=== PATIENT | male | born 1985 | race Caucasian/White ===

== ENCOUNTER 2023-03-01 07:30 | Outpatient (REF) | payer BC, SELFPAY ==
[2023-03-01 12:07] LABS: Hematocrit 50.2 % (42.0-52.0); Hemoglobin 16.8 g/dl (14.0-18.0); Mean Corpuscular HGB Conc 33.5 g/dl (31.0-36.0); Mean Corpuscular Hemoglobin 29.8 pg (27.0-33.0); Mean Platelet Volume 10.1 fL (9.4-12.4); Platelet Count 275 X10*3/uL (160-400); Red Blood Count 5.64 X10*6/uL (4.60-5.80); White Blood Count 6.9 X10*3/uL (4.8-10.8)
[2023-03-01 13:47] LABS: Alanine Aminotransferase 93 U/L (0-40); Albumin Level 4.2 g/dL (3.5-5.0); Alkaline Phosphatase 92 U/L (39-117); Anion Gap 14 (12-20); Aspartate Amino Transferase 34 U/L (5-37); Bilirubin Total 1.2 mg/dL (0.0-1.0); Blood Urea Nitrogen 11 mg/dL (9-16); Calcium 9.4 mg/dL (8.4-10.2); Carbon Dioxide 28 mmol/L (22-29); Chloride 108 mmol/L (96-108); Cholesterol 192 mg/dL; Estimated Glomerular Filt Rate > 60; Glucose Fasting 102 mg/dL (60-99); HDL Cholesterol 44 mg/dL; LDL Cholesterol Calculated 118 mg/dl; Potassium 4.6 mmol/L (3.3-5.1); Sodium 145 mmol/L (135-145); Total Protein 6.7 g/dL (6.5-8.0); Triglycerides 153 mg/dL
[2023-03-01 14:06] LABS: TSH reflex Free T4 1.56 uIU/mL (0.32-4.0)
== END 2023-03-01 07:31 | disposition home or self-care (01) ==
LOC: HO.WFDLDS 07:30
PROVIDERS: Visit Provider Nurse Practitioner Family
DX: Z00.00 Encounter for general adult medical examination without abnormal findings (principal); F32.9 Major depressive disorder, single episode, unspecified; F41.9 Anxiety disorder, unspecified; F43.10 Post-traumatic stress disorder, unspecified; F84.0 Autistic disorder; I10 Essential (primary) hypertension
CPT/HCPCS: 36415; 80053; 80061; 84443; 85027

== ENCOUNTER 2023-03-17 07:24 | Outpatient (REF) | payer BC, SELFPAY ==
[2023-03-17 11:56] LABS: Alanine Aminotransferase 87 U/L (0-40); Glucose Fasting 102 mg/dL (60-99)
== END 2023-03-17 07:25 | disposition home or self-care (01) ==
LOC: HO.WFDLDS 07:24
PROVIDERS: Visit Provider Nurse Practitioner Family
DX: R73.01 Impaired fasting glucose (principal); R74.01 Elevation of levels of liver transaminase levels
CPT/HCPCS: 36415; 82947; 84460

== ENCOUNTER 2023-05-18 16:15 | Outpatient (AMB) | payer BC, SELFPAY ==
--- NOTE | 2023-05-18 16:19 | A.OFFPC_ITS ---
Vital Signs 05/18/23 16:22 Height 5 ft 9 in Weight 437 lb BMI 64.5 BP 128/72 Blood Pressure Location Lt brachial Position Sitting Respiration 13 Pulse 92 Pulse Source Pulse Oximeter Temp 96.7 F L Temp Source Temporal Artery Scan Pulse Oximetry (%) 98 Oxygen Delivery Method Room Air Intake Visit Reasons: follow up Intake Note: Patient states that he needs a new blood pressure cuff that is a XL to ensure it fits around patients arm. Senior Physical Therapist Required: No Accompanied by: Self / Same As Patient Allergies No Known Allergies Allergy (Verified 05/18/23 16:30) Medication List - Last Reconciled 05/18/23 by Rommel Flores CNP bupropion HCl (Wellbutrin SR) 150 mg PO QAM loratadine (Allergy Relief (loratadine)) 10 mg PO DAILY losartan 100 mg PO DAILY 30 days melatonin 10 mg PO BEDTIME PRN metoprolol tartrate 50 mg PO BID 30 days vilazodone (Viibryd) 40 mg PO DAILY Tobacco use date assessed: 02/28/23 Dental Screening Dental Screen Date: 05/18/23 Did you have a dental visit in the last 12 months?: No Did you have a dental problem in the last 6 months where you did not have access to dental care?: No HPI HPI Comments History of Present Illness Details 38-year-old male presents for hypertension follow-up He notes that he has been taking his medications as prescribed No acute symptoms today He reports controlled anxiety and depression symptoms. He is followed by a therapist and psychiatrist He is planning on establishing with a dentist and will then request for his PCP to refer him to weight management for a gastric prolonged procedure [facility] Medical History Depression Hay fever Hypertension Surgical History No pertinent past surgical history Family History Mother Diabetes Cardiovascular disease Cancer Father Hypertension Alcoholism Psychiatric problem Maternal Grandmother Diabetes Breast cancer Paternal Grandmother Lung cancer Maternal Grandfather Psychiatric problem Paternal Grandfather Alcoholism Social History Housing: Apartment Alcohol intake: never Patient Tobacco Use Status: Never used Tobacco e-Cigarette/Vaping Use: Never Used service: No Current occupational status: employed Current occupation: Patient works with the [place] Cognitive needs: No Hearing needs: No Vision needs: No Questionnaire Thrive Questionnaire Date Thrive assessed: 02/28/23 RAFIA-7 AMB Questionnaire RAFIA-7 Date RAFIA - 7 assessed: 02/28/23 Source: Developed by Drs. Eddie Alcantara, Hayde Meyer, Soto Mane and colleagues, with an educational rebecca from [employer]. Review of Systems Const Details: Const Denies chills, Denies fatigue, Denies fever(s), Denies headache(s) and Denies weakness ENT Denies change in vision, Denies dizziness, Denies headache(s), Denies hearing loss, Denies nasal congestion, Denies sinus pain, Denies sinus pressure and Denies sore throat Resp Denies cough, Denies dyspnea, Denies wheezing and Denies other (shortness of breath) Cardio Denies chest pain, Denies lightheadedness, Denies dyspnea and Denies other (palpitations) Neuro Denies dizziness, Denies headache(s), Denies numbness, Denies tingling and Denies weakness Psych Denies anxiety, Denies depression, Denies memory?loss Endo Denies fatigue Aller/Immun Denies wheezing Physical exam (Primary Care) Vital Signs: Last Vital Signs Temp 96.7 F L 05/18/23 16:22 Pulse 92 05/18/23 16:22 Resp 13 05/18/23 16:22 BP 128/72 05/18/23 16:22 Pulse Ox 98 05/18/23 16:22 Oxygen Delivery Method Room Air 05/18/23 16:22 BMI result Body Mass Index 64.5 Tobacco/Smoking Status: Tobacco use Status Tobacco use date assessed 02/28/23 04/29/23 15:32 Patient Tobacco Use Status Never used Tobacco 04/29/23 15:32 e-Cigarette/Vaping Use Never Used 04/29/23 15:32 Thrive Assessment: Date of Thrive Assessment Date Thrive assessed 02/28/23 04/29/23 15:32 Const Other: Const General: well developed; No acute distress Nutritional Appearance: well nourished Orientation/consciousness: patient oriented x3 HEENT Head: Yes normocephalic and Yes atraumatic Eyes General: appearance normal, both eyes and all related structures Pupils: Equal, round and reactive pupils present EOM: EOMs intact bilaterally Resp Effort & Inspection: normal respiratory effort Auscultation: clear to auscultation bilaterally Cardio Rate: regular rate Rhythm: regular rhythm Heart sounds: S1 normal heart sound present, S2 normal heart sound present, no g allops, no murmurs and no rubs Bruits: no abdominal aortic bruits and no carotid bruits Neuro General: patient oriented x3 and gait normal, no focal neuro deficit Cranial nerves: Yes Equal, round and reactive pupils present Psych Affect: normal affect Assessment and Plan Assessment & Plan (1) Hypertension: Code(s): I10 - Essential (primary) hypertension Plan: His blood pressure is controlled, 128/72, within goal of less than 140/90 Continue to take losartan and metoprolol as prescribed Low-sodium diet encouraged Routine exercise encouraged Will continue to monitor Follow-up in 1 month for complete physical exam Return sooner with symptoms or concerns Verbalized understanding and agreed with treatment plan. (2) Major depressive disorder: Code(s): F32.9 - Major depressive disorder, single episode, unspecified Plan: He reports controlled anxiety and depression symptoms Continue to follow up with therapist and psychiatrist as planned Return with worsening or new symptoms Verbalized understanding and agreed with treatment plan. (3) Anxiety: Code(s): F41.9 - Anxiety disorder, unspecified Plan: As above Medications: New miscellaneous medical supply 1 extra-large blood pressure cuff/monitor 1 ea 0RF Changed From metoprolol tartrate 50 mg PO BID 30 days 60 tabs 3RF To metoprolol tartrate 50 mg PO BID 90 days 180 tabs 1RF From losartan 100 mg PO DAILY 30 days 30 tabs 3RF To losartan 100 mg PO DAILY 90 days 90 tabs 1RF Coding Level of Care Code Est Pt Level 3 (24011) Diagnoses Hypertension I10 Major depressive disorder F32.9 Anxiety F41.9 Time Spent (min) 25
[2023-05-18 16:22] VITALS: BP 128/72; PULSE 92; RESP 13; TEMP 35.9; O2SAT 98; BMI 64.5
== END 2023-05-18 16:47 | disposition home or self-care (01) ==
PROVIDERS: PCP Nurse Practitioner Family; Visit Provider Nurse Practitioner Family
DX: I10 Essential (primary) hypertension (principal); F32.9 Major depressive disorder, single episode, unspecified; F41.9 Anxiety disorder, unspecified
CPT/HCPCS: 99213

== ENCOUNTER 2023-06-15 08:31 | Outpatient (AMB) | payer BC, SELFPAY ==
--- NOTE | 2023-06-15 08:39 | MHC.PC.OV ---
Vital Signs 06/15/23 08:40 06/15/23 09:04 Height 5 ft 9 in Weight 444 lb BMI 65.6 BP 172/110 H 134/90 H Blood Pressure Location Rt brachial Rt brachial Position Sitting Sitting Respiration 16 Pulse 89 Pulse Source Pulse Oximeter Temp 97.0 F Temp Source Temporal Artery Scan Pulse Oximetry (%) 93 Oxygen Delivery Method Room Air Intake Visit Reasons: 1 mos CPE Intake Note: Patient presents in the office today for a complete physical exam. Patient reports concerns for an oversized blood pressure cuff and how to obtain it through will pharmacy. Patient reports being under a considerable amount of stress due to family issues. 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 Accompanied by: Self / Same As Patient Allergies No Known Allergies Allergy (Verified 06/15/23 08:53) Medication List - Last Reconciled 06/15/23 by Rommel Flores CNP bupropion HCl (Wellbutrin SR) 150 mg PO QAM loratadine (Allergy Relief (loratadine)) 10 mg PO DAILY losartan 100 mg PO DAILY 90 days melatonin 10 mg PO BEDTIME PRN metoprolol tartrate 50 mg PO BID 90 days miscellaneous medical supply 1 extra-large blood pressure cuff/monitor vilazodone (Viibryd) 40 mg PO DAILY Tobacco use date assessed: 02/28/23 Dental Screening Dental Screen Date: 06/15/23 Did you have a dental visit in the last 12 months?: Yes Did you have a dental problem in the last 6 months where you did not have access to dental care?: No Was dental information given to patient?: Patient has dentist HPI HPI Comments History of Present Illness Details 38-year-old male presents for a complete physical exam He has past medical history significant for hypertension, autism, anxiety, and depression. He reports control anxiety and depression symptoms. He is followed by a therapist and psychiatrist. His psychiatrist manages his psychotropic medications. He notes that he took his medications this morning. He reports significant amount of stress due to family issues. His brother resides in a care home and does not want to be in the care home. 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 He states he never received his blood pressure cough/monitor because [facility] requires a diagnosis on the order. He states he will inquire whether his health plan covers Ozempic or Wegovy for weight management. [facility] Medical History Depression Hay fever Hypertension Surgical History No pertinent past surgical history Family History Mother Diabetes Cardiovascular disease Cancer Father Hypertension Alcoholism Psychiatric problem Maternal Grandmother Diabetes Breast cancer Paternal Grandmother Lung cancer Maternal Grandfather Psychiatric problem Paternal Grandfather Alcoholism Social History Housing: Apartment Alcohol intake: never Patient Tobacco Use Status: Never used Tobacco e-Cigarette/Vaping Use: Never Used service: No Current occupational status: employed Current occupation: Patient works with the [place] Cognitive needs: No Hearing needs: No Vision needs: No Questionnaire PHQ-9 Over the last 2 weeks, how often have you been bothered by any of the following problems? 1. Little interest or pleasure in doing things: not at all 2. Feeling down, depressed, or hopeless: several days 3. Trouble falling or staying asleep, or sleeping too much: not at all 4. Feeling tired or having little energy: several days 5. Poor appetite or overeating: several days 6. Feeling bad about yourself - or that you are a failure or have let yourself or your family down: more than half the days 7. Trouble concentrating on things, such as reading the newspaper or watching television: not at all 8. Moving or speaking so slowly that other people could have noticed. Or the opposite - being so fidgety or restless that you have been moving around a lot more than usual: not at all 9. Thoughts that you would be better off or of hurting yourself in some way: not at all Total score: 5 Depression Screening Interpretation: Positive Depression Screening Follow-up: Existing condition and In treatment 17964 - PHQ-9 Billing: Yes Source: Developed by Drs. Eddie Alcantara, Hayde Meyer, Soto Mane and colleagues, with an educational rebecca from [employer]. Thrive Questionnaire Date Thrive assessed: 02/28/23 RAFIA-7 AMB Questionnaire RAFIA-7 Date RAFIA - 7 assessed: 06/15/23 Feeling nervous, anxious, or on edge: 1 = Several days Not being able to stop or control worryin = More than half the days Worrying too much about different things: 1 = Several days Trouble relaxin = Several days Being so restless that it is hard to sit still: 0 = Not at all Becoming easily annoyed or irritable: 0 = Not at all Feeling afraid as if something awful might happen: 1 = Several days Total RAFIA-7 score (0-4 normal; 5-9 mild; 10-14 moderate; 15-21 severe): 6 Source: Developed by Drs. Eddie Alcantara, Hayde Meyer, Soto Mane and colleagues, with an educational rebecca from [employer]. RAFIA-7 Assessment Billing RAFIA-7 Assessment Tool: RAFIA-7 Assessment 09412 Review of Systems Const Details: Const Denies chills, Denies fatigue, Denies fever(s), Denies headache(s) and Denies weakness ENT Denies dizziness and Denies headache(s) Card Denies chest pain, Denies lightheadedness, Denies dyspnea and Denies other (Palpitations) Resp Denies cough, Denies dyspnea, Denies wheezing and Denies other ( shortness of breath) GI Denies abdominal pain, Denies melena, Denies hematochezia, Denies change in bowel habits, Denies dyspepsia and Denies nausea Denies hematuria and Denies dysuria Musc Denies abnormal gait, Denies myalgias, Denies arthralgias, Denies numbness and Denies tingling Skin/Breast Denies rash, Denies unusual bruising and Denies wounds Neuro Denies abnormal gait, Denies dizziness, Denies headache(s), Denies memory loss, Denies numbness, Denies Sensory deficit (Neuro), Denies tingling and Denies weakness Psych Denies anxiety, Denies depression, Denies memory loss Endo Denies cold intolerance, Denies fatigue, Denies heat intolerance, Denies polydipsia and Denies polyuria Aller/Immun Denies wheezing Physical exam (Primary Care) Vital Signs: Last Vital Signs Temp 97.0 F 06/15/23 08:40 Pulse 89 06/15/23 08:40 Resp 16 06/15/23 08:40 BP 172/110 H 06/15/23 08:40 Pulse Ox 93 06/15/23 08:40 Oxygen Delivery Method Room Air 06/15/23 08:40 BMI result Body Mass Index 65.6 Tobacco/Smoking Status: Tobacco use Status Tobacco use date assessed 02/28/23 06/15/23 08:39 Patient Tobacco Use Status Never used Tobacco 06/15/23 08:39 e-Cigarette/Vaping Use Never Used 06/15/23 08:39 Depression Screening Interpretation: Positive Depression Screening Follow-up: Existing condition and In treatment Thrive Assessment: Date of Thrive Assessment Date Thrive assessed 02/28/23 06/15/23 08:39 Const Other: General: no acute distress, well developed, alert and awake Nutritional Appearance: well nourished Orientation/consciousness: patient oriented x3 HENMT Head: Yes normocephalic and Yes atraumatic Ears: hearing grossly normal bilaterally and TM's normal bilaterally General nose exam: Normal external nose present and Normal nares present Mouth: Normal oral and palatal mucosa present and moist mucous membranes Teeth and gingiva: dentition normal Throat: Yes oropharynx normal Eyes Pupils: Equal, round and reactive pupils present and Pupil accommodation reflex normal EOM: EOMs intact bilaterally Neck Neck: Yes normal visual inspection, Yes no lymphadenopathy and Yes trachea midline Thyroid: Thyroid normal Carotids: no bruits Lymphatic: no lymphadenopathy noted Chest Chest palpation & inspection: normal inspection of the chest Resp Effort & Inspection: normal respiratory effort Auscultation: clear to auscultation bilaterally Cardio Rate: regular rate Rhythm: regular rhythm Heart sounds: S1 normal heart sound present, S2 normal heart sound present, no gallops, no murmurs and no rubs Bruits: no abdominal aortic bruits and no carotid bruits GI Palpation (GI): No Abdominal aortic bruit present, Soft to palpation, nontender, No hepatosplenomegaly present and No Rebound tenderness present Auscultation: normal bowel sounds General: Yes no CVA tenderness Back/Spine/Pelvis Back: no CVA tenderness Cervical Spine: cervical ROM normal and No Cervical spine tenderness Thoracic/Lumbar Spine: thoraco-lumbar ROM normal, No pain with thoraco-lumbar ROM, No thoracic spinal tenderness and No lumbar spinal tenderness Skin General: warm and dry. Normal skin color. Normal skin turgor Lesions: no lesions Rashes: no rashes Trauma: no lacerations or abrasions Wounds: no wounds Nails: normal Neuro General: patient oriented x3, gait normal and CN's II-XI intact bilaterally Cranial nerves: Yes Equal, round and reactive pupils present Cognition (Neuro): normal cognition Gait exam (Neuro): Normal gait present Motor exam (neuro): 5/5 motor strength present throughout Sensory Exam: No Sensory deficit (Neuro) Deep tendon reflexes (DTR's): Right patellar reflex intensity grade: 2+ and Left patellar reflex intensity grade: 2+ Extrem General: Yes normal to inspection, No edema and No calf tenderness Psych Appearance: grossly normal Affect: normal affect Attitude: cooperative Thought process: Normal thought process present Assessment and Plan Assessment & Plan (1) Normal physical examination, routine: Code(s): Z00.00 - Encounter for general adult medical examination without abnormal findings Plan: No significant physical restrictions or limitations noted He states he will inquire whether his health plan covers Ozempic or Wegovy for weight management and inform his PCP (2) Hypertension: Code(s): I10 - Essential (primary) hypertension Plan: Resting blood pressure is 134/90, slightly above goal of less than 140/90 Continue with current treatment regimen Low-sodium diet encouraged Blood pressure cough/monitor order modified with diagnosis Monitor blood pressure at least 2 to 3 times a week and report blood pressure readings consistently above 140/90 with and without symptoms Follow-up in 2 months or return sooner with concerns or symptoms Verbalized understanding and agreed with treatment plan. (3) Major depressive disorder: Code(s): F32.9 - Major depressive disorder, single episode, unspecified Plan: PHQ-9 and RAFIA-7 scores revealed mild depression and anxiety respectively Continue with current treatment regimen Continue to follow up with therapist and psychiatrist Routine exercise encouraged Return in 2 months or sooner with worsening or new symptoms Verbalized understanding and agreed with treatment plan. (4) Anxiety: Code(s): F41.9 - Anxiety disorder, unspecified Plan: As above Medications: Refilled miscellaneous medical supply 1 extra-large blood pressure cuff/monitor 1 ea 0RF I10 - Essential (primary) hypertension Coding Level of Care Code Est Pt Prev Care 18-39y([id number]) Diagnoses Normal physical examination, routine Z00.00 Hypertension I10 Major depressive disorder F32.9 Anxiety F41.9 Additional Codes RAFIA-7 Assessment Billing - RAFIA-7 Assessment Tool: RAFIA-7 Assessment 74295 ([id number])
[2023-06-15 08:40] VITALS: BP 172/110; PULSE 89; RESP 16; TEMP 36.1; O2SAT 93; BMI 65.6
[2023-06-15 09:04] VITALS: BP 134/90
== END 2023-06-15 09:17 | disposition home or self-care (01) ==
PROVIDERS: PCP Nurse Practitioner Family; Visit Provider Nurse Practitioner Family
DX: Z00.00 Encounter for general adult medical examination without abnormal findings (principal); I10 Essential (primary) hypertension; F32.9 Major depressive disorder, single episode, unspecified; F41.9 Anxiety disorder, unspecified
CPT/HCPCS: 99395

== ENCOUNTER 2023-10-21 11:49 | Outpatient (AMB) | payer BC, SELFPAY ==
[2023-10-21 11:57] VITALS: BP 142/90; PULSE 91; RESP 13; TEMP 36.3; O2SAT 97; BMI 66.3
--- NOTE | 2023-10-21 11:57 | MHC.PC.OV ---
Vital Signs 10/21/23 11:57 10/21/23 12:34 Height 5 ft 9 in Weight 449 lb BMI 66.3 BP 142/90 H 134/90 H Blood Pressure Location Rt brachial Lt brachial Position Sitting Sitting Respiration 13 Pulse 91 Pulse Source Pulse Oximeter Temp 97.4 F Temp Source Temporal Artery Scan Pulse Oximetry (%) 97 Oxygen Delivery Method Room Air Intake Visit Reasons: 2 mos HTN, anxiety, depression Intake Note: Patient states that since he was last here he has been having shortness of breathe and he is currently concerned that he may have lyme disease due to going to an outing with his friend and his friend coming out positive. Patient states he was unable to get BP cuff due to pharmacy having only electric and not manual. [place] Machine Operator Required: No Accompanied by: Self / Same As Patient Allergies blueberry Adverse Reaction (Intermediate, Verified 10/21/23 12:26) Stomach Upset Medication List - Last Reconciled 10/21/23 by Rommel Flores CNP bupropion HCl (Wellbutrin SR) 150 mg PO QAM loratadine (Allergy Relief (loratadine)) 10 mg PO DAILY losartan 100 mg PO DAILY 90 days melatonin 10 mg PO BEDTIME PRN metoprolol tartrate 50 mg PO BID 90 days metoprolol tartrate 25 mg PO BID miscellaneous medical supply 1 extra-large blood pressure cuff/monitor vilazodone (Viibryd) 40 mg PO DAILY Tobacco use date assessed: 02/28/23 Dental Screening Dental Screen Date: 10/21/23 Did you have a dental visit in the last 12 months?: No Did you have a dental problem in the last 6 months where you did not have access to dental care?: No Was dental information given to patient?: Yes HPI HPI Comments History of Present Illness Details 38-year-old male presents for hypertension, anxiety, and depression follow-up He admits to taking his medications with no adverse reactions He notes that he has been taking metoprolol 75 mg twice daily instead of prescribed 50 mg twice Daily. He states the pharmacy continues to fill both scripts for 25 mg twice daily and 50 mg twice Daily although the 25 mg twice daily order was discontinued several months ago He reports increased anxiety and depression symptoms related to family issues. He notes that his brother who is mentally ill, resides in a senior care [place], and lately has been challenging to care for He continues to see his psychiatrist every 3 months and therapist every 2-3 weeks He had a positive response to the PHQ-9 question regarding Thoughts that you would be better off or of hurting yourself in some way. He attributes his response to the challenges involves in caring for his brother. He notes that I just rather be . He denies SI/HI, and contracts for safety ? He reports shortness of breath with moderate to severe exertion since early September. He is concerned about Lyme disease. He notes that he was spending time with a friend who lives in the [facility] in early September. His friend tested positive for lyme disease a week or two later. He notes his shortness of breath started around the time he spent was with his friend. He denies finding or removing tick on his skin He notes history of sleep apnea. His slept with the CPAP for 6 month, was unable to tolerate the device, and has not been using it to sleep for the past 9 years [facility] Medical History Depression Hay fever Hypertension Surgical History No pertinent past surgical history Family History Mother Diabetes Cardiovascular disease Cancer Father Hypertension Alcoholism Psychiatric problem Maternal Grandmother Diabetes Breast cancer Paternal Grandmother Lung cancer Maternal Grandfather Psychiatric problem Paternal Grandfather Alcoholism Social History Housing: Apartment Alcohol intake: never Patient Tobacco Use Status: Never used Tobacco e-Cigarette/Vaping Use: Never Used service: No Current occupational status: employed Current occupation: Patient works with the [employer] Cognitive needs: No Hearing needs: No Vision needs: No Questionnaire PHQ-9 Over the last 2 weeks, how often have you been bothered by any of the following problems? 1. Little interest or pleasure in doing things: more than half the days 2. Feeling down, depressed, or hopeless: more than half the days 3. Trouble falling or staying asleep, or sleeping too much: more than half the days 4. Feeling tired or having little energy: more than half the days 5. Poor appetite or overeating: more than half the days 6. Feeling bad about yourself - or that you are a failure or have let yourself or your family down: several days 7. Trouble concentrating on things, such as reading the newspaper or watching television: several days 8. Moving or speaking so slowly that other people could have noticed. Or the opposite - being so fidgety or restless that you have been moving around a lot more than usual: not at all 9. Thoughts that you would be better off or of hurting yourself in some way: several days Total score: 13 Depression Screening Interpretation: Positive Depression Screening Follow-up: Existing condition and In treatment Depression Screening Done: Yes 94368 - PHQ-9 Billing: Yes Source: Developed by Drs. Eddie Alcantara, Soto Juarez and colleagues, with an educational rebecca from [employer]. Thrive Questionnaire Date Thrive assessed: 02/28/23 RAFIA-7 AMB Questionnaire RAFIA-7 Date RAFIA - 7 assessed: 10/21/23 Feeling nervous, anxious, or on edge: 1 = Several days Not being able to stop or control worryin = Several days Worrying too much about different things: 0 = Not at all Trouble relaxin = More than half the days Being so restless that it is hard to sit still: 0 = Not at all Becoming easily annoyed or irritable: 1 = Several days Feeling afraid as if something awful might happen: 2 = More than half the days Total RAFIA-7 score (0-4 normal; 5-9 mild; 10-14 moderate; 15-21 severe): 7 Source: Developed by Drs. Eddie Alcantara, Soto Juarez and colleagues, with an educational rebecca from [employer]. RAFIA-7 Assessment Billing RAFIA-7 Assessment Tool: RAFIA-7 Assessment 20161 Review of Systems Const Details: Const Denies chills, Denies fatigue, Denies fever(s), Denies headache(s) and Denies weakness ENT Denies dizziness and Denies headache(s) Card Denies chest pain, Denies lightheadedness, Denies dyspnea and Denies other (Palpitations) Resp Denies cough, Denies dyspnea, Denies wheezing and Denies other ( shortness of breath) GI Denies abdominal pain, Denies melena, Denies hematochezia, Denies change in bowel habits, Denies dyspepsia and Denies nausea Denies hematuria and Denies dysuria Musc Denies abnormal gait, Denies myalgias, Denies arthralgias, Denies numbness and Denies tingling Skin/Breast Denies rash, Denies unusual bruising and Denies wounds Neuro Denies abnormal gait, Denies dizziness, Denies headache(s), Denies memory loss, Denies numbness, Denies Sensory deficit (Neuro), Denies tingling and Denies weakness Psych Reports anxiety, Reports depression, Denies memory loss Endo Denies cold intolerance, Denies fatigue, Denies heat intolerance, Denies polydipsia and Denies polyuria Aller/Immun Denies wheezing Physical exam (Primary Care) Vital Signs: Last Vital Signs Temp 97.4 F 10/21/23 11:57 Pulse 91 10/21/23 11:57 Resp 13 10/21/23 11:57 BP 142/90 H 10/21/23 11:57 Pulse Ox 97 10/21/23 11:57 Oxygen Delivery Method Room Air 10/21/23 11:57 BMI result Body Mass Index 66.3 Tobacco/Smoking Status: Tobacco use Status Tobacco use date assessed 02/28/23 06/15/23 08:39 Patient Tobacco Use Status Never used Tobacco 06/15/23 08:39 e-Cigarette/Vaping Use Never Used 06/15/23 08:39 Depression Screening Interpretation: Positive Depression Screening Follow-up: Existing condition and In treatment Thrive Assessment: Date of Thrive Assessment Date Thrive assessed 02/28/23 06/15/23 08:39 Const Other: General: no acute distress and well developed Nutritional Appearance: well nourished Orientation/consciousness: patient oriented x3 HENMT Head: Yes normocephalic and Yes atraumatic Eyes General: appearance normal, both eyes and all related structures Pupils: Equal, round and reactive pupils present EOM: EOMs intact bilaterally Resp Effort & Inspection: normal respiratory effort Auscultation: clear to auscultation bilaterally Cardio Rate: regular rate Rhythm: regular rhythm Heart sounds: S1 normal heart sound present, S2 normal heart sound present, no gallops, no murmurs and no rubs GI Palpation (GI): No Abdominal aortic bruit present, Soft to palpation, nontender, No hepatosplenomegaly present and No Rebound tenderness present Auscultation: normal bowel sounds General: Yes no CVA tenderness Back/Spine/Pelvis Back: no CVA tenderness Cervical Spine: cervical ROM normal and No Cervical spine tenderness Thoracic/Lumbar Spine: thoraco-lumbar ROM normal, No pain with thoraco-lumbar ROM, No thoracic spinal tenderness and No lumbar spinal tenderness Extrem General: Yes normal to inspection, No edema and No calf tenderness Skin General: warm and dry. Normal skin color. Normal skin turgor Neuro General: patient oriented x3, gait normal and no focal neuro deficit Cranial nerves: Yes Equal, round and reactive pupils present Cognition (Neuro): normal cognition Gait exam (Neuro): Normal gait present Sensory Exam: No Sensory deficit (Neuro) Psych Appearance: grossly normal Affect: normal affect Attitude: cooperative Thought process: Normal thought process present Assessment and Plan Assessment & Plan (1) Hypertension: Code(s): I10 - Essential (primary) hypertension Plan: Resting blood pressure is 134/90, slightly above goal of less than 140/90 Metoprolol ordered adjusted from 50 mg twice daily to 75 mg twice daily take as prescribed Continue current treatment regimen Low-sodium diet encouraged Will continue to monitor He will follow-up in 1 week for shortness of breath Verbalized understanding and agreed with treatment plan (2) Major depressive disorder: Code(s): F32.9 - Major depressive disorder, single episode, unspecified Plan: Reports increased anxiety and depression symptoms related to caring for his brother who is mentally ill He had a positive response to the PHQ-9 questions regarding Thoughts that you would be better off or of hurting yourself in some way. He attributes his response to the challenges involves in caring for his brother. He notes that I just rather be . He denies SI/HI, and contracts for safety PHQ-9 and RAFIA-7 scores revealed moderate depression and mild anxiety respectively Continue current treatment regimen Continue follow-up with therapist and psychiatrist as planned Routine exercise and deep breathing/relaxation techniques encouraged Return with worsening or new symptoms Verbalized understanding and agreed with treatment plan (3) Anxiety: Code(s): F41.9 - Anxiety disorder, unspecified Plan: As above (4) Shortness of breath: Code(s): R06.02 - Shortness of breath Plan: Reports shortness of breath with moderate to severe exertion since early September. He thinks he may have Lyme disease because a friend he spent time with in the [facility] was later diagnosed with Lyme disease. He correlates the onset of symptoms at around the same time he was with his friend No cough or chest pain Lung sounds clear bilaterally His symptoms may be attributed to CHF, sleep apnea, or morbid obesity. Anxiety may also be contributing factor He currently weighs 449 lb, BMI is 66.3 CBC, BMP, BNP, Lyme titer, and chest x-ray ordered Referred to sleep medicine for sleep apnea evaluation Referred to weight management Follow-up in 1 week or return sooner with worsening or new symptoms Verbalized understanding and agreed with treatment plan (5) Sleep apnea: Code(s): G47.30 - Sleep apnea, unspecified Plan: Reports history of sleep apnea Referred to sleep medicine Orders: Orders XR chest 2V Today R06.02 - Shortness of breath Lyme IgG/IgM w/reflex to WB Today R06.02 - Shortness of breath Complete Blood Count no Diff Today R06.02 - Shortness of breath Basic Metabolic Panel Today R06.02 - Shortness of breath B Type Natriuretic Peptide Today R06.02 - Shortness of breath Referrals Sleep Medicine Referral G47.30 - Sleep apnea, unspecified Medical Weight Management Referral E66.01 - Morbid (severe) obesity due to excess calories, Z68.44 - Body mass index [BMI] 60.0-69.9, adult Medications: New metoprolol tartrate 75 mg PO BID 60 tabs 1RF 30 days Discontinued metoprolol tartrate Discontinued Reason: Doctor's Order 50 mg PO BID 90 days 180 tabs 1RF Coding Level of Care Code Est Pt Level 4 (17557) Diagnoses Hypertension I10 Major depressive disorder F32.9 Anxiety F41.9 Shortness of breath R06.02 Sleep apnea G47.30 Additional Codes RAFIA-7 Assessment Billing - RAFIA-7 Assessment Tool: RAFIA-7 Assessment 95959 ([id number])
[2023-10-21 12:34] VITALS: BP 134/90
== END 2023-10-21 12:50 | disposition home or self-care (01) ==
PROVIDERS: PCP Nurse Practitioner Family; Visit Provider Nurse Practitioner Family
DX: I10 Essential (primary) hypertension (principal); F32.9 Major depressive disorder, single episode, unspecified; F41.9 Anxiety disorder, unspecified; R06.02 Shortness of breath; G47.30 Sleep apnea, unspecified
CPT/HCPCS: 96127; 99214

== ENCOUNTER 2023-10-21 13:16 | Outpatient (REF) | payer BC, SELFPAY ==
--- NOTE | ~2023-10-21 | XR_ITS ---
EXAMINATION: XR CHEST CLINICAL INFORMATION: Shortness of breath COMPARISON: None available. TECHNIQUE: 2 views of the chest were obtained. FINDINGS: The lungs are well expanded. No focal consolidation, interstitial pulmonary edema or pneumothorax. No pleural effusion. There is mild central peribronchial thickening. There is mild enlargement of the cardiac silhouette. No acute osseous abnormality. XR/XR chest 2V IMPRESSION: No pneumonia. Mild peribronchial thickening can be seen with bronchitis. Mild cardiomegaly.
[2023-10-21 13:53] LABS: Hematocrit 50.6 % (42.0-52.0); Hemoglobin 17.2 g/dl (14.0-18.0); Mean Corpuscular Hemoglobin 29.8 pg (27.0-33.0); Mean Corpuscular Volume 87.7 fL (80.0-98.0); Mean Platelet Volume 9.1 fL (9.4-12.4); Platelet Count 314 X10*3/uL (160-400); Red Blood Count 5.77 X10*6/uL (4.60-5.80); Red Cell Distribution Width 12.7 % (11.0-16.0); White Blood Count 8.8 X10*3/uL (4.8-10.8)
[2023-10-21 14:14] LABS: B Type Natriuretic Peptide 41 pg/mL (<100)
[2023-10-21 14:16] LABS: Anion Gap 15 (12-20); Blood Urea Nitrogen 12 mg/dL (9-16); Calcium 9.7 mg/dL (8.4-10.2); Carbon Dioxide 25 mmol/L (22-29); Chloride 109 mmol/L (96-108); Estimated Glomerular Filt Rate > 60; Glucose Random 115 mg/dL (60-115); Potassium 4.3 mmol/L (3.3-5.1); Sodium 145 mmol/L (135-145)
[2023-10-24 22:12] LABS: Lyme Abs Screen <0.90 index
== END 2023-10-21 13:17 | disposition home or self-care (01) ==
LOC: HO.LAB 13:16
PROVIDERS: PCP Nurse Practitioner Family; Visit Provider Nurse Practitioner Family
DX: R06.02 Shortness of breath (principal)
CPT/HCPCS: 36415; 71046; 80048; 83880; 85027; 86617; 86618

== ENCOUNTER 2023-10-27 09:59 | Outpatient (AMB) | payer BC, SELFPAY ==
--- NOTE | 2023-10-27 10:08 | MHC.PC.OV ---
Vital Signs 10/27/23 10:09 Height 5 ft 8 in Weight 449 lb 8 oz BMI 68.3 BP 124/80 Blood Pressure Location Rt brachial Position Sitting Respiration 15 Pulse 91 Pulse Source Pulse Oximeter Temp 98 F Temp Source Temporal Artery Scan Pulse Oximetry (%) 98 Oxygen Delivery Method Room Air Intake Visit Reasons: Shortness of breath Intake Note: Patient would like to go over most recent labs and x-rays. Record Producer Required: No Accompanied by: Self / Same As Patient Allergies blueberry Adverse Reaction (Intermediate, Verified 10/27/23 10:18) Stomach Upset Medication List - Last Reconciled 10/27/23 by Rommel Flores CNP bupropion HCl (Wellbutrin SR) 150 mg PO QAM loratadine (Allergy Relief (loratadine)) 10 mg PO DAILY losartan 100 mg PO DAILY 90 days melatonin 10 mg PO BEDTIME PRN metoprolol tartrate 75 mg PO BID 30 days miscellaneous medical supply 1 extra-large blood pressure cuff/monitor vilazodone (Viibryd) 40 mg PO DAILY Tobacco use date assessed: 02/28/23 Dental Screening Dental Screen Date: 10/27/23 Did you have a dental visit in the last 12 months?: No Did you have a dental problem in the last 6 months where you did not have access to dental care?: No Was dental information given to patient?: Yes HPI HPI Comments History of Present Illness Details 38-year-old male presents for shortness of breath follow-up He was evaluated on 10/21 for shortness of breath with moderate exertion since early September He noted he may have been exposed to tick and that he may have Lyme disease He reported history of sleep apnea. However, he stopped using his CPAP for sleep 9 years ago CBC, BMP, and Lyme titer ordered. Chest x-ray was ordered. He was referred to sleep medicine and weight management He reports continued shortness with moderate exertion. He notes that his symptoms are slightly improved since his last visit. No new symptoms. [facility] Medical History Hypertension Depression Hay fever Surgical History No pertinent past surgical history Family History Mother Diabetes Cardiovascular disease Cancer Father Hypertension Alcoholism Psychiatric problem Maternal Grandmother Diabetes Breast cancer Paternal Grandmother Lung cancer Maternal Grandfather Psychiatric problem Paternal Grandfather Alcoholism Social History Housing: Apartment Alcohol intake: never Patient Tobacco Use Status: Never used Tobacco e-Cigarette/Vaping Use: Never Used service: No Current occupational status: employed Current occupation: Patient works with the [place] Cognitive needs: No Hearing needs: No Vision needs: No Questionnaire Thrive Questionnaire Date Thrive assessed: 02/28/23 RAFIA-7 AMB Questionnaire RAFIA-7 Date RAFIA - 7 assessed: 10/21/23 Source: Developed by Drs. Eddie Alcantara, Hayde Meyer, Soto Mane and colleagues, with an educational rebecca from [employer]. Review of Systems Const Details: Const Denies chills, Denies fatigue, Denies fever(s), Denies headache(s) and Denies weakness ENT Denies dizziness and Denies headache(s) Card Denies chest pain, Denies lightheadedness, Denies dyspnea and Denies other (Palpitations) Resp Denies cough, Denies dyspnea, Denies wheezing and Denies other ( shortness of breath) GI Denies abdominal pain, Denies melena, Denies hematochezia, Denies change in bowel habits, Denies dyspepsia and Denies nausea Denies hematuria and Denies dysuria Musc Denies abnormal gait, Denies myalgias, Denies arthralgias, Denies numbness and Denies tingling Skin/Breast Denies rash, Denies unusual bruising and Denies wounds Neuro Denies abnormal gait, Denies dizziness, Denies headache(s), Denies memory loss, Denies numbness, Denies Sensory deficit (Neuro), Denies tingling and Denies weakness Psych Denies anxiety, Denies depression, Denies memory loss Endo Denies cold intolerance, Denies fatigue, Denies heat intolerance, Denies polydipsia and Denies polyuria Aller/Immun Denies wheezing Physical exam (Primary Care) Tobacco/Smoking Status: Tobacco use Status Tobacco use date assessed 02/28/23 10/21/23 12:06 Patient Tobacco Use Status Never used Tobacco 10/21/23 12:06 e-Cigarette/Vaping Use Never Used 10/21/23 12:06 Thrive Assessment: Date of Thrive Assessment Date Thrive assessed 02/28/23 10/21/23 12:06 Const Other: General: no acute distress and well developed Nutritional Appearance: well nourished Orientation/consciousness: patient oriented x3 HENMT Head: Yes normocephalic and Yes atraumatic Eyes General: appearance normal, both eyes and all related structures Pupils: Equal, round and reactive pupils present EOM: EOMs intact bilaterally Resp Effort & Inspection: normal respiratory effort Auscultation: clear to auscultation bilaterally Cardio Rate: regular rate Rhythm: regular rhythm Heart sounds: S1 normal heart sound present, S2 normal heart sound present, no gallops, no murmurs and no rubs GI Palpation (GI): No Abdominal aortic bruit present, Soft to palpation, nontender, No hepatosplenomegaly present and No Rebound tenderness present Auscultation: normal bowel sounds General: Yes no CVA tenderness Back/Spine/Pelvis Back: no CVA tenderness Cervical Spine: cervical ROM normal and No Cervical spine tenderness Thoracic/Lumbar Spine: thoraco-lumbar ROM normal, No pain with thoraco-lumbar ROM, No thoracic spinal tenderness and No lumbar spinal tenderness Extrem General: Yes normal to inspection, No edema and No calf tenderness Skin General: warm and dry. Normal skin color. Normal skin turgor Neuro General: patient oriented x3, gait normal and no focal neuro deficit Cranial nerves: Yes Equal, round and reactive pupils present Cognition (Neuro): normal cognition Gait exam (Neuro): Normal gait present Sensory Exam: No Sensory deficit (Neuro) Psych Appearance: grossly normal Affect: normal affect Attitude: cooperative Thought process: Normal thought process present Assessment and Plan Assessment & Plan (1) Shortness of breath: Code(s): R06.02 - Shortness of breath Plan: Reports continued shortness with moderate exertion. His symptoms are slightly improved since his last visit. No new symptoms Recent CBC, BMP, and Lyme titer are unremarkable. Chest x-ray results pending; will review results and make changes as needed He will be contacted by sleep medicine and weight management for an appointment Weight loss encouraged Healthy diet and routine exercise encouraged Continue to follow up with psychiatrist and therapist as planned Follow-up in 3 months or return sooner with worsening or new symptoms Verbalized understanding and agreed with treatment plan Coding Level of Care Code Est Pt Level 3 (88045) Diagnoses Shortness of breath R06.02
[2023-10-27 10:09] VITALS: BP 124/80; PULSE 91; RESP 15; TEMP 36.6; O2SAT 98; BMI 68.3
== END 2023-10-27 10:24 | disposition home or self-care (01) ==
PROVIDERS: PCP Nurse Practitioner Family; Visit Provider Nurse Practitioner Family
DX: R06.02 Shortness of breath (principal)
CPT/HCPCS: 99213

== ENCOUNTER 2023-12-27 08:08 | Outpatient (AMB) | payer BC, SELFPAY ==
--- NOTE | 2023-12-27 08:10 | MHC.OFFVIS ---
Intake Vital Signs 12/27/23 08:18 Height 5 ft 8 in Weight 446 lb 6 oz BMI 67.9 BP 134/82 Blood Pressure Location Lt brachial Position Sitting Pulse 79 Pulse Source Pulse Oximeter Pulse Oximetry (%) 96 Oxygen Delivery Method Room Air Intake Visit Reasons: INP-RASHEED- Confirmed Intake Note: Patient presents for RASHEED. Wakes up frequently at night and takes Benedryl under providers orders to be able to get some sleep. Snores a lot, wakes up sometimes gasping for air. Low energy and high blood pressure. Allergies blueberry Adverse Reaction (Intermediate, Verified 12/27/23 08:17) Stomach Upset HPI HPI Comments History of Present Illness Details 38 y/o male patient presents for new in-person visit to manage sleep apnea. Pt reports he was diagnosed with sleep apnea more than 10 years ago. He tried CPAP, but unable to sleep with it. He tired different masks, and also Benadryl but couldn't sleep with it. He has depression and treated with medication, and he gained more than 200 lb since the last sleep study. Pt continues to experiences frequent gasping arousals, loud snoring, non refreshing sleep and daytime tiredness. Sleep questionnaire: Have you ever been diagnosed with a sleep disorder? Yes. Have you ever had a sleep study in the past? Yes. Have you ever been treated for a sleep disorder? Yes, tried CPAP but not tolerated. Do you take medications for a sleep disorder? melatonin 10 mg and benadryl, still wakes up several times. Do you snore? Yes. Do you wake up gasping at night? Yes. Do you have episodes of apneas? Yes. If yes, are they witnessed? Yes. Do you have episodes of nocturnal chest pain or dyspnea? Yes. Do you have difficulty initiating sleep? No. Do you have difficulty maintaining sleep? Yes. Do you wake up tired? Yes. Do you have headaches upon awakening? No. Do you wake up with dry mouth or throat? No. Do you have GERD? Yes, sometimes. Do you have nocturia? Usually once a night. Do you have nocturnal leg cramps? No. Do you have symptoms of restless legs? No. Do you act out your dreams? No. Sleep hygiene questionnaire: What is your usual sleep routine? Usual bedtime is at 10-11 pm; Usual wake up time is at 6:30 to 10 am. Do you take naps? Occasionally. Is your sleep environment cool, dark, and quiet? Yes. Do you exercise? Walking. Do you take caffeine or other stimulants? No. Do you use electronics in bed? Yes. What is your work schedule? 8 am to 4 pm. Hypersomnolence questionnaire: Do you have daytime tiredness or fatigue? Yes. Do you easily fall asleep when inactive? Yes. Have you ever had episodes of sudden weakness? No. Have you ever had episodes of sudden weakness associated with strong emotions? No. PFSH Medical History Hypertension Depression Hay fever Surgical History No pertinent past surgical history Family History Mother Diabetes Cardiovascular disease Cancer Father Hypertension Alcoholism Psychiatric problem Maternal Grandmother Diabetes Breast cancer Paternal Grandmother Lung cancer Maternal Grandfather Psychiatric problem Paternal Grandfather Alcoholism Social History Housing: Apartment Alcohol intake: never Patient Tobacco Use Status: Never used Tobacco e-Cigarette/Vaping Use: Never Used service: No Current occupational status: employed Current occupation: Patient works with the [employer] Cognitive needs: No Hearing needs: No Vision needs: No Review of Systems Const All systems reviewed & are unremarkable except as noted in HPI and below Physical Exam Vital Signs: Last Vital Signs Pulse 79 12/27/23 08:18 BP 134/82 12/27/23 08:18 Pulse Ox 96 12/27/23 08:18 Oxygen Delivery Method Room Air 12/27/23 08:18 BMI result Body Mass Index 67.9 Const General: cooperative Nutritional Appearance: obese Orientation/consciousness: patient oriented x3 Limitations: ambulation with cane Neck Neck: Yes full ROM Resp Effort & Inspection: normal respiratory effort and able to speak in complete sentences Neuro General: patient oriented x3 Cranial nerves: Yes CN's II-XII intact bilaterally Cognition (Neuro): normal cognition Motor exam (neuro): 5/5 motor strength present throughout Psych Appearance: grossly normal Mental Status: mental status grossly normal Speech and movement: Normal speech and movement present Affect: normal affect Attitude: cooperative Assessment & Plan Assessment & Plan (1) Sleep apnea: Code(s): G47.30 - Sleep apnea, unspecified (2) Morbid obesity with BMI of 60.0-69.9, adult: Code(s): E66.01 - Morbid (severe) obesity due to excess calories; Z68.44 - Body mass index [BMI] 60.0-69.9, adult Plan Pt is advised to undergo in lab sleep study to assess for sleep apnea. Will f/u with pt after study to discuss results and appropriate treatment options. Sleep hygiene education provided. Limit electronic use before bedtime. Wt reduction advised. Pt to call with any worsening concerns or questions. Orders: Orders RT PSG in-lab sleep study Today E66.01 - Morbid (severe) obesity due to excess calories, G47.30 - Sleep apnea, unspecified, Z68.44 - Body mass index [BMI] 60.0-69.9, adult Coding Level of Care Code New Pt Level 3 (51016) Diagnoses Sleep apnea G47.30 Morbid obesity with BMI of 60.0-69.9, adult E66.01; Z68.44
[2023-12-27 08:18] VITALS: BP 134/82; PULSE 79; O2SAT 96; BMI 67.9
== END 2023-12-27 08:40 | disposition home or self-care (01) ==
PROVIDERS: PCP Nurse Practitioner Family; Visit Provider Nurse Practitioner Family
DX: G47.30 Sleep apnea, unspecified (principal); E66.01 Morbid (severe) obesity due to excess calories; Z68.44 Body mass index [BMI] 60.0-69.9, adult
CPT/HCPCS: 99203

== ENCOUNTER → 2023-12-27 08:08 | Outpatient (BNVA) | payer BC, SELFPAY | PROVIDERS: PCP Nurse Practitioner Family; Visit Provider Nurse Practitioner Family ==

== ENCOUNTER → 2024-01-20 19:30 | Outpatient (REF) | payer BC, SELFPAY | LOC: HO.SL 19:30 | PROVIDERS: PCP Nurse Practitioner Family; Visit Provider Nurse Practitioner Family | DX: G47.33 Obstructive sleep apnea (adult) (pediatric) (principal); E66.01 Morbid (severe) obesity due to excess calories; Z68.44 Body mass index [BMI] 60.0-69.9, adult | CPT/HCPCS: 95810 ==

== ENCOUNTER → 2024-01-20 22:07 | Outpatient (BNV) | payer BC, SELFPAY | PROVIDERS: PCP Nurse Practitioner Family; Visit Provider Psychiatry & Neurology Neurology | DX: G47.33 Obstructive sleep apnea (adult) (pediatric) (principal) | CPT/HCPCS: 95810 ==

== ENCOUNTER → 2024-01-23 07:58 | Outpatient (BNVA) | payer BC, SELFPAY | PROVIDERS: PCP Nurse Practitioner Family; Visit Provider Physician Assistant Surgical ==

== ENCOUNTER → 2024-02-07 16:08 | Outpatient (BNVA) | payer BC, SELFPAY | PROVIDERS: PCP Nurse Practitioner Family; Visit Provider Physician Assistant Surgical ==

== ENCOUNTER 2024-02-14 14:07 | Outpatient (AMB) | payer BC, SELFPAY ==
[2024-02-14 14:09] VITALS: BMI 64.6
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
== END 2024-02-14 14:23 | disposition home or self-care (01) ==
PROVIDERS: PCP Nurse Practitioner Family; Visit Provider Nurse Practitioner Family
DX: G47.30 Sleep apnea, unspecified (principal); E66.01 Morbid (severe) obesity due to excess calories; Z68.44 Body mass index [BMI] 60.0-69.9, adult
CPT/HCPCS: 99213

== ENCOUNTER → 2024-02-14 14:07 | Outpatient (BNVA) | payer BC, SELFPAY | PROVIDERS: PCP Nurse Practitioner Family; Visit Provider Nurse Practitioner Family ==

== ENCOUNTER 2024-02-17 08:03 | Outpatient (AMB) | payer BC, SELFPAY ==
[2024-02-17 08:07] VITALS: BP 148/96; PULSE 97; RESP 13; TEMP 36.6; O2SAT 96; BMI 65.2
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
[2024-02-17 08:38] VITALS: BP 140/100
== END 2024-02-17 08:49 | disposition home or self-care (01) ==
PROVIDERS: PCP Nurse Practitioner Family; Visit Provider Nurse Practitioner Family
DX: I10 Essential (primary) hypertension (principal); F32.9 Major depressive disorder, single episode, unspecified; F41.9 Anxiety disorder, unspecified; F43.10 Post-traumatic stress disorder, unspecified
CPT/HCPCS: 99214

== ENCOUNTER 2024-03-26 07:55 | Outpatient (AMB) | payer BC, SELFPAY ==
--- NOTE | 2024-02-07 16:01 | MHC.OFFVISWM ---
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 His goal is to lose weight and achieve a healthy lifestyle as well as to improve, if not resolve, obesity related medical conditions, including maeve, htn. He reports first being concerned about his weight [], highest weight to date was []. Current weight is 444 pounds with a BMI of 64.6. He has tried multiple methods of weight loss including fad diets without permanent results. He lives with []. He works [] days per week. He wakes at:?[], and goes to bed at?[]. Dinner is at []. Breakfast: [] AM snack: [] Lunch: [] PM snack: [] Dinner: [] After dinner: [] Other snacks: [] Liquids: [] Alcohol/marijuana/tobacco intake: [] Exercise: [] GERD score: 0 CHRISTA score: 6 ESS score: 11 QOL score: 70 PFSH Medical History Hypertension Depression Hay fever Surgical History No pertinent past surgical history Family History Mother Diabetes Cardiovascular disease Cancer Father Hypertension Alcoholism Psychiatric problem Maternal Grandmother Diabetes Breast cancer Paternal Grandmother Lung cancer Maternal Grandfather Psychiatric problem Paternal Grandfather Alcoholism Social History Housing: Apartment Alcohol intake: never Patient Tobacco Use Status: Never used Tobacco e-Cigarette/Vaping Use: Never Used service: No Current occupational status: employed Current occupation: Patient works with the [employer] Cognitive needs: No Hearing needs: No Vision needs: No Coding
--- NOTE | 2024-03-26 09:22 | A.OFFVIS_ITS ---
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 Allergies blueberry Adverse Reaction (Intermediate, Verified 03/26/24 09:22) Stomach Upset Medication List - Last Reconciled 03/26/24 by Lyle Youngblood MD bupropion HCl SR (Wellbutrin SR) 150 mg PO QAM hydrochlorothiazide 12.5 mg PO DAILY 30 days loratadine (Allergy Relief (loratadine)) 10 mg PO DAILY losartan 100 mg PO DAILY 90 days melatonin 10 mg PO BEDTIME PRN metoprolol tartrate 75 mg PO BID 30 days miscellaneous medical supply 1 extra-large blood pressure cuff/monitor vilazodone (Viibryd) 60 mg PO DAILY HPI HPI 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: Details: Start time: 9.12am, End time: 10am ?I spent 43 minutes speaking with the patient on the phone plus an additional 5 minutes reviewing and updating records for a total of 48 minutes HPI Comments Details: 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 Wakes up: 6.30am, Sleeps: 10.30pm Breakfast: 9am (Krishna's or crackers) Lunch: 12pm (Left over from day before) Dinner: 6pm (vegetable stew, chicken dumplings) Snacks: 10am (crackers), 4pm (crackers or cheese), 8pm (noodle soup) Exercise: none PFSH Medical History (Updated 03/26/24 @ 09:27 by Lyle Youngblood MD) Inguinal hernia Insomnia Hypertension Depression Hay fever Surgical History No pertinent past surgical history Family History Mother Diabetes Cardiovascular disease Cancer Father Hypertension Alcoholism Psychiatric problem Maternal Grandmother Diabetes Breast cancer Paternal Grandmother Lung cancer Maternal Grandfather Psychiatric problem Paternal Grandfather Alcoholism Other Mental health disorder Social History Housing: Apartment Alcohol intake: never Patient Tobacco Use Status: Never used Tobacco e-Cigarette/Vaping Use: Never Used service: No Current occupational status: employed Current occupation: Patient works with the [employer] Cognitive needs: No Hearing needs: No Vision needs: No Telehealth Telehealth Telehealth Platform: Telephone Location of provider rendering services: practice address Location of patient: address on file Patient Identification confirmed using: Name, : Yes Telehealth method: voice only Patient verbally consented to treatment: Yes Patient verbally consented to billing insurance company: Yes Patient informed of any privacy concerns related to visit: Yes Minutes spent on Phone/Video with Pt.: 48 Assessment & Plan Assessment & Plan (1) Morbid obesity with BMI of 60.0-69.9, adult: Code(s): E66.01 - Morbid (severe) obesity due to excess calories; Z68.44 - Body mass index [BMI] 60.0-69.9, adult Category: Medical Plan: 1.? Plan for lap sleeve gastrectomy. If diaphragmatic or ventral hernias are present at time of surgery, these will be repaired laparoscopically as well. Risks and complications were discussed in detail including possible conversion to an open procedure, anastomotic leak, bleeding requiring transfusion, small bowel obstruction, , DVT and pulmonary embolism, cardiac, or pulmonary complications, as intermodal dispatcher complications such as anastomotic ulcer, insu fficient weight loss and vitamin deficiencies. I emphasized the importance of close follow-up, adherence to instructions and good communication. 2. You will receive a link of our software renata to generate an individualized nutritional and exercise plan specific for you. Please send me a screenshot of the plans you will generate Meal to include lean meat (beef, fish, pork, turkey, chicken), or english yogurt, or egg whites, or beans with a salad with olive oil and fruits (berries, pears, apples, kiwi). Avoid salt, breads, potatoes, rice, pasta, desserts. ?3. If you choose shakes, each shake would be drunk slowly, like coffee in a period of 2 hours. ?4. If you choose bars, cut each bar in 4 pieces and eat each piece in 30min ?to make each bar last 2 hours. ?5. I emphasized the importance of measuring accurately the food portion and measure it when serving the food in plate ?6. The meal portions include a specific number of forks of meat and salad. You always eat the meat portion but you can replace up to half of salad/vegetables portion with rice, potatoes or pasta, or a fruit ?if you like. The less you do it the better weight loss will be. ?7. One full-size fork is what it can be scooped on the fork without falling aside and not what can be bit with the fork. Use regular forks like those you find in a typical restaurant. ?8.? Please send me weight measurements as soon as possible and then once a week. Always include your diet and exercise plan. 9. The best choice would be to purchase a stationary bike, elliptical or treadmill at home that can track calories. Let me know if you do so I can give you an exercise plan. ?10.?Goal is to lose at least 1.5-2lbs per week ?11. Goal to lose 10% of your weight before surgery, which is about 44lbs. Ultimate weight goal: 400lbs before surgery 12. Please follow the diet plan exactly without any change. If you don't like something about the plan or you feel hungry you need to communicate with me so I can help you revise the plan. You should not change the plan yourself. 13. To be scheduled for EGD due to history of GERD. The possibility of biopsies was discussed. Patient needs to avoid use of NSAIDs and aspirin for 1 week prior to EGD. Risks of perforation and? bleeding was discussed with the patient. This will be an outpatient procedure with IV sedation. Orders: Orders Hemoglobin A1c Today E66.01 - Morbid (severe) obesity due to excess calories, G47.30 - Sleep apnea, unspecified, I10 - Essential (primary) hypertension, R73.03 - Prediabetes, Z68.44 - Body mass index [BMI] 60.0-69.9, adult Lipid Panel Today E66.01 - Morbid (severe) obesity due to excess calories, G47.30 - Sleep apnea, unspecified, I10 - Essential (primary) hypertension, R73.03 - Prediabetes, Z68.44 - Body mass index [BMI] 60.0-69.9, adult Comprehensive Met. Panel Today E66.01 - Morbid (severe) obesity due to excess calories, G47.30 - Sleep apnea, unspecified, I10 - Essential (primary) hypertension, R73.03 - Prediabetes, Z68.44 - Body mass index [BMI] 60.0-69.9, adult C Reactive Protein Today E66.01 - Morbid (severe) obesity due to excess calories, G47.30 - Sleep apnea, unspecified, I10 - Essential (primary) hypertension, R73.03 - Prediabetes, Z68.44 - Body mass index [BMI] 60.0-69.9, adult TSH reflex Free T4 Today E66.01 - Morbid (severe) obesity due to excess calories, G47.30 - Sleep apnea, unspecified, I10 - Essential (primary) hypertension, R73.03 - Prediabetes, Z68.44 - Body mass index [BMI] 60.0-69.9, adult Ferritin Today E66.01 - Morbid (severe) obesity due to excess calories, G47.30 - Sleep apnea, unspecified, I10 - Essential (primary) hypertension, R73.03 - Prediabetes, Z68.44 - Body mass index [BMI] 60.0-69.9, adult Vitamin D 25-OH Total Today E66.01 - Morbid (severe) obesity due to excess calories, G47.30 - Sleep apnea, unspecified, I10 - Essential (primary) hypertension, R73.03 - Prediabetes, Z68.44 - Body mass index [BMI] 60.0-69.9, ad ult FL upper GI w air Today E66.01 - Morbid (severe) obesity due to excess calories, G47.30 - Sleep apnea, unspecified, I10 - Essential (primary) hypertension, R73.03 - Prediabetes, Z68.44 - Body mass index [BMI] 60.0-69.9, adult Insulin Today E66.01 - Morbid (severe) obesity due to excess calories, G47.30 - Sleep apnea, unspecified, I10 - Essential (primary) hypertension, R73.03 - Prediabetes, Z68.44 - Body mass index [BMI] 60.0-69.9, adult H Pylori Breath Test Today E66.01 - Morbid (severe) obesity due to excess calories, G47.30 - Sleep apnea, unspecified, I10 - Essential (primary) hypertension, R73.03 - Prediabetes, Z68.44 - Body mass index [BMI] 60.0-69.9, adult Complete Blood Count Auto Diff Today E66.01 - Morbid (severe) obesity due to excess calories, G47.30 - Sleep apnea, unspecified, I10 - Essential (primary) hypertension, R73.03 - Prediabetes, Z68.44 - Body mass index [BMI] 60.0-69.9, adult IRON PROFILE Today E66.01 - Morbid (severe) obesity due to excess calories, G47.30 - Sleep apnea, unspecified, I10 - Essential (primary) hypertension, R73.03 - Prediabetes, Z68.44 - Body mass index [BMI] 60.0-69.9, adult Vitamin B12 and Folate Today E66.01 - Morbid (severe) obesity due to excess calories, G47.30 - Sleep apnea, unspecified, I10 - Essential (primary) hypertension, R73.03 - Prediabetes, Z68.44 - Body mass index [BMI] 60.0-69.9, adult Zinc Today E66.01 - Morbid (severe) obesity due to excess calories, G47.30 - Sleep apnea, unspecified, I10 - Essential (primary) hypertension, R73.03 - Prediabetes, Z68.44 - Body mass index [BMI] 60.0-69.9, adult Vitamin B1 Today E66.01 - Morbid (severe) obesity due to excess calories, G47.30 - Sleep apnea, unspecified, I10 - Essential (primary) hypertension, R73.03 - Prediabetes, Z68.44 - Body mass index [BMI] 60.0-69.9, adult Vitamin A Today E66.01 - Morbid (severe) obesity due to excess calories, G47.30 - Sleep apnea, unspecified, I10 - Essential (primary) hypertension, R73.03 - Pr ediabetes, Z68.44 - Body mass index [BMI] 60.0-69.9, adult US abdomen comp w elastography Today E66.01 - Morbid (severe) obesity due to excess calories, G47.30 - Sleep apnea, unspecified, I10 - Essential (primary) hypertension, R73.03 - Prediabetes, Z68.44 - Body mass index [BMI] 60.0-69.9, adult XR chest 2V Today E66.01 - Morbid (severe) obesity due to excess calories, G47.30 - Sleep apnea, unspecified, I10 - Essential (primary) hypertension, R73.03 - Prediabetes, Z68.44 - Body mass index [BMI] 60.0-69.9, adult ECG 12 lead EKG Today E66.01 - Morbid (severe) obesity due to excess calories, G47.30 - Sleep apnea, unspecified, I10 - Essential (primary) hypertension, R73.03 - Prediabetes, Z68.44 - Body mass index [BMI] 60.0-69.9, adult Referrals Behavioral Health Referral E66.01 - Morbid (severe) obesity due to excess calories, G47.30 - Sleep apnea, unspecified, I10 - Essential (primary) hypertension, R73.03 - Prediabetes, Z68.44 - Body mass index [BMI] 60.0-69.9, adult Nutrition/Dietitian Referral E66.01 - Morbid (severe) obesity due to excess calories, G47.30 - Sleep apnea, unspecified, I10 - Essential (primary) hypertension, R73.03 - Prediabetes, Z68.44 - Body mass index [BMI] 60.0-69.9, adult
[2024-03-26 09:35] VITALS: BMI 64.6
== END 2024-03-26 10:01 | disposition home or self-care (01) ==
PROVIDERS: PCP Nurse Practitioner Family; Visit Provider Surgery
DX: E66.01 Morbid (severe) obesity due to excess calories (principal); Z68.44 Body mass index [BMI] 60.0-69.9, adult
CPT/HCPCS: 99443

== ENCOUNTER → 2024-03-26 07:55 | Outpatient (BNVA) | payer BC, SELFPAY | PROVIDERS: PCP Nurse Practitioner Family; Visit Provider Surgery ==

== ENCOUNTER 2024-03-27 16:04 | Outpatient (AMB) | payer BC, SELFPAY ==
--- NOTE | 2024-03-27 16:08 | MHC.PC.OV ---
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: No Accompanied by: Self / Same As Patient Allergies blueberry Adverse Reaction (Intermediate, Verified 03/27/24 16:16) Stomach Upset Medication List - Last Reconciled 03/27/24 by Rommel Flores CNP bupropion HCl SR (Wellbutrin SR) 150 mg PO QAM hydrochlorothiazide 12.5 mg PO DAILY 30 days loratadine (Allergy Relief (loratadine)) 10 mg PO DAILY losartan 100 mg PO DAILY 90 days melatonin 10 mg PO BEDTIME PRN metoprolol tartrate 75 mg PO BID 30 days miscellaneous medical supply 1 extra-large blood pressure cuff/monitor vilazodone (Viibryd) 60 mg PO DAILY Tobacco use date assessed: 02/17/24 Dental Screening Dental Screen Date: 02/17/24 HPI HPI Comments History of Present Illness Details 39-year-old male presents for hypertension follow-up He notes that he has not been taking losartan for the past 5 days because the pharmacy the pharmacy never informed him about his new refill. He been taking his other medications as prescribed without adverse reactions. 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 He notes that the [facility] provider is creating an renata that he is testing on patients. He prefers in-person visits [facility] Medical History Inguinal hernia Insomnia Hypertension Depression Hay fever Surgical History No pertinent past surgical history Family History Mother Diabetes Cardiovascular disease Cancer Father Hypertension Alcoholism Psychiatric problem Maternal Grandmother Diabetes Breast cancer Paternal Grandmother Lung cancer Maternal Grandfather Psychiatric problem Paternal Grandfather Alcoholism Other Mental health disorder Social History (Reviewed 03/27/24 @ 16:15 by Lynne Chodwhury [facility]) Housing: Apartment Alcohol intake: never Patient Tobacco Use Status: Never used Tobacco e-Cigarette/Vaping Use: Never Used service: No Current occupational status: employed Current occupation: Patient works with the [employer] Cognitive needs: No Hearing needs: No Vision needs: No Questionnaire Thrive Questionnaire Date Thrive assessed: 02/28/23 RAFIA-7 AMB Questionnaire RAFIA-7 Date RAFIA - 7 assessed: 02/17/24 Source: Developed by Drs. Eddie Alcantara, Hayde Meyer, Soto Mane and colleagues, with an educational rebecca from [employer]. Review of Systems Const Details: Const Denies chills, Denies fatigue, Denies fever(s), Denies headache(s) and Denies weakness ENT Denies dizziness and Denies headache(s) Card Denies chest pain, Denies lightheadedness, Denies dyspnea and Denies other (Palpitations) Resp Denies cough, Denies dyspnea, Denies wheezing and Denies other ( shortness of breath) GI Denies abdominal pain, Denies melena, Denies hematochezia, Denies change in bowel habits, Denies dyspepsia and Denies nausea Denies hematuria and Denies dysuria Musc Denies abnormal gait, Denies myalgias, Denies arthralgias, Denies numbness and Denies tingling Skin/Breast Denies rash, Denies unusual bruising and Denies wounds Neuro Denies abnormal gait, Denies dizziness, Denies headache(s), Denies memory loss, Denies numbness, Denies Sensory deficit (Neuro), Denies tingling and Denies weakness Psych Denies anxiety, Denies depression, Denies memory loss Endo Denies cold intolerance, Denies fatigue, Denies heat intolerance, Denies polydipsia and Denies polyuria Aller/Immun Denies wheezing Physical exam (Primary Care) Vital Signs: Last Vital Signs Temp 98.1 F 03/27/24 16:09 Pulse 97 03/27/24 16:09 Resp 15 03/27/24 16:09 BP 154/90 H 03/27/24 16:09 Pulse Ox 97 03/27/24 16:09 Oxygen Delivery Method Room Air 03/27/24 16:09 BMI result Body Mass Index 65.1 Tobacco/Smoking Status: Tobacco use Status Tobacco use date assessed 02/17/24 03/27/24 16:15 Patient Tobacco Use Status Never used Tobacco 03/27/24 16:15 e-Cigarette/Vaping Use Never Used 03/27/24 16:15 Thrive Assessment: Date of Thrive Assessment Date Thrive assessed 02/28/23 03/27/24 16:15 Const Other: General: no acute distress and well developed Nutritional Appearance: well nourished Orientation/consciousness: patient oriented x3 HENMT Head: Yes normocephalic and Yes atraumatic Eyes General: appearance normal, both eyes and all related structures Pupils: Equal, round and reactive pupils present EOM: EOMs intact bilaterally Resp Effort & Inspection: normal respiratory effort Auscultation: clear to auscultation bilaterally Cardio Rate: regular rate Rhythm: regular rhythm Heart sounds: S1 normal heart sound present, S2 normal heart sound present, no gallops, no murmurs and no rubs GI Palpation (GI): No Abdominal aortic bruit present, Soft to palpation, nontender, No hepatosplenomegaly present and No Rebound tenderness present Auscultation: normal bowel sounds General: Yes no CVA tenderness Back/Spine/Pelvis Back: no CVA tenderness Cervical Spine: cervical ROM normal and No Cervical spine tenderness Thoracic/Lumbar Spine: thoraco-lumbar ROM normal, No pain with thoraco-lumbar ROM, No thoracic spinal tenderness and No lumbar spinal tenderness Extrem General: Yes normal to inspection, No edema and No calf tenderness Skin General: warm and dry. Normal skin color. Normal skin turgor Neuro General: patient oriented x3, gait normal and no focal neuro deficit Cranial nerves: Yes Equal, round and reactive pupils present Cognition (Neuro): normal cognition Gait exam (Neuro): Normal gait present Sensory Exam: No Sensory deficit (Neuro) Psych Appearance: grossly normal Affect: normal affect Attitude: cooperative Thought process: Normal thought process present Assessment and Plan Assessment & Plan (1) Hypertension: Code(s): I10 - Essential (primary) hypertension Plan: Resting blood pressure is 154/90, above goal of less than 140/90 Losartan-hydrochlorothiazide 100-12.5 mg daily ordered. Advised to take as prescribed Low-sodium diet and routine exercise encouraged Follow-up in 2 weeks or return sooner with symptoms or concerns Verbalized understanding and agreed with treatment plan (2) Morbid obesity with BMI of 60.0-69.9, adult: Code(s): E66.01 - Morbid (severe) obesity due to excess calories; Z68.44 - Body mass index [BMI] 60.0-69.9, adult Plan: Requests a new weight management referral to a different practice/provider for in person treatment instead of via renata Referred to [facility] weight management Healthy diet and routine exercise encouraged Follow-up with symptoms or concerns Verbalized understanding and agreed with treatment plan Orders: Referrals Medical Weight Management Referral E66.01 - Morbid (severe) obesity due to excess calories, Z68.44 - Body mass index [BMI] 60.0-69.9, adult Medications: New losartan-hydrochlorothiazide 100-12.5 mg 1 tab PO DAILY 90 tabs 1RF 90 days Discontinued losartan Discontinued Reason: Doctor's Order 100 mg PO DAILY 90 tabs 1RF 90 days hydrochlorothiazide Discontinued Reason: Doctor's Order 12.5 mg PO DAILY 30 days 30 tabs 3RF Coding Level of Care Code Est Pt Level 4 (62644) Complex EM visit Add On G2211 Diagnoses Hypertension I10 Morbid obesity with BMI of 60.0-69.9, adult E66.01; Z68.44
[2024-03-27 16:09] VITALS: BP 154/90; PULSE 97; RESP 15; TEMP 36.7; O2SAT 97; BMI 65.1
== END 2024-03-27 16:32 | disposition home or self-care (01) ==
PROVIDERS: PCP Nurse Practitioner Family; Visit Provider Nurse Practitioner Family
DX: I10 Essential (primary) hypertension (principal); E66.01 Morbid (severe) obesity due to excess calories; Z68.44 Body mass index [BMI] 60.0-69.9, adult
CPT/HCPCS: 99214; G2211

== ENCOUNTER 2024-04-20 10:01 | Outpatient (AMB) | payer BC, SELFPAY ==
[2024-04-20 10:04] VITALS: BP 144/100; PULSE 96; RESP 15; TEMP 36.6; O2SAT 97; BMI 66.4
--- NOTE | 2024-04-20 10:07 | MHC.PC.OV ---
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 Required: No Accompanied by: Self / Same As Patient Allergies blueberry Adverse Reaction (Intermediate, Verified 04/20/24 10:14) Stomach Upset Medication List - Last Reconciled 04/20/24 by Rommel Flores CNP bupropion HCl SR (Wellbutrin SR) 150 mg PO QAM loratadine (Allergy Relief (loratadine)) 10 mg PO DAILY losartan-hydrochlorothiazide 100-12.5 mg 1 tab PO DAILY 90 days melatonin 10 mg PO BEDTIME PRN metoprolol tartrate 75 mg PO BID 30 days miscellaneous medical supply 1 extra-large blood pressure cuff/monitor vilazodone (Viibryd) 60 mg PO DAILY Tobacco use date assessed: 02/17/24 Dental Screening Dental Screen Date: 02/17/24 HPI HPI Comments History of Present Illness Details 39-year-old male presents for hypertension follow-up He admits to taking his medications as prescribed without adverse reactions He admits to maintaining low-sodium diet He offers no complaints and denies acute symptoms at this time He completed paperwork for [facility] weight management and waiting for an appointment to start [facility] Medical History Inguinal hernia Insomnia Hypertension Depression Hay fever Surgical History No pertinent past surgical history Family History Mother Diabetes Cardiovascular disease Cancer Father Hypertension Alcoholism Psychiatric problem Maternal Grandmother Diabetes Breast cancer Paternal Grandmother Lung cancer Maternal Grandfather Psychiatric problem Paternal Grandfather Alcoholism Other Mental health disorder Social History Housing: Apartment Alcohol intake: never Patient Tobacco Use Status: Never used Tobacco e-Cigarette/Vaping Use: Never Used service: No Current occupational status: employed Current occupation: Patient works with the [employer] Cognitive needs: No Hearing needs: No Vision needs: No Questionnaire Thrive Questionnaire Date Thrive assessed: 02/28/23 RAFIA-7 AMB Questionnaire RAFIA-7 Date RAFIA - 7 assessed: 02/17/24 Source: Developed by Drs. Eddie Alcantara, Hayde Meyer, Soto Mane and colleagues, with an educational rebecca from [employer] Review of Systems Const Details: Const Denies chills, Denies fatigue, Denies fever(s), Denies headache(s) and Denies weakness ENT Denies dizziness and Denies headache(s) Card Denies chest pain, Denies lightheadedness, Denies dyspnea and Denies other (Palpitations) Resp Denies cough, Denies dyspnea, Denies wheezing and Denies other ( shortness of breath) GI Denies abdominal pain, Denies melena, Denies hematochezia, Denies change in bowel habits, Denies dyspepsia and Denies nausea Denies hematuria and Denies dysuria Musc Denies abnormal gait, Denies myalgias, Denies arthralgias, Denies numbness and Denies tingling Skin/Breast Denies rash, Denies unusual bruising and Denies wounds Neuro Denies abnormal gait, Denies dizziness, Denies headache(s), Denies memory loss, Denies numbness, Denies Sensory deficit (Neuro), Denies tingling and Denies weakness Psych Denies anxiety, Denies depression, Denies memory loss Endo Denies cold intolerance, Denies fatigue, Denies heat intolerance, Denies polydipsia and Denies polyuria Aller/Immun Denies wheezing Physical exam (Primary Care) Vital Signs: Last Vital Signs Temp 97.8 F 04/20/24 10:04 Pulse 96 04/20/24 10:04 Resp 15 04/20/24 10:04 BP 142/80 H 04/20/24 10:04 Pulse Ox 97 04/20/24 10:04 Oxygen Delivery Method Room Air 04/20/24 10:04 BMI result Body Mass Index 66.4 Tobacco/Smoking Status: Tobacco use Status Tobacco use date assessed 02/17/24 04/20/24 10:10 Patient Tobacco Use Status Never used Tobacco 04/20/24 10:10 e-Cigarette/Vaping Use Never Used 04/20/24 10:10 Thrive Assessment: Date of Thrive Assessment Date Thrive assessed 02/28/23 04/20/24 10:10 Const Other: General: no acute distress and well developed Nutritional Appearance: well nourished Orientation/consciousness: patient oriented x3 [facility] Head: Yes normocephalic and Yes atraumatic Eyes General: appearance normal, both eyes and all related structures Pupils: Equal, round and reactive pupils present EOM: EOMs intact bilaterally Resp Effort & Inspection: normal respiratory effort Auscultation: clear to auscultation bilaterally Cardio Rate: regular rate Rhythm: regular rhythm Heart sounds: S1 normal heart sound present, S2 normal heart sound present, no gallops, no murmurs and no rubs GI Palpation (GI): No Abdominal aortic bruit present, Soft to palpation, nontender, No hepatosplenomegaly present and No Rebound tenderness present Auscultation: normal bowel sounds General: Yes no CVA tenderness Back/Spine/Pelvis Back: no CVA tenderness Cervical Spine: cervical ROM normal and No Cervical spine tenderness Thoracic/Lumbar Spine: thoraco-lumbar ROM normal, No pain with thoraco-lumbar ROM, No thoracic spinal tenderness and No lumbar spinal tenderness Extrem General: Yes normal to inspection, No edema and No calf tenderness Skin General: warm and dry. Normal skin color. Normal skin turgor Neuro General: patient oriented x3, gait normal and no focal neuro deficit Cranial nerves: Yes Equal, round and reactive pupils present Cognition (Neuro): normal cognition Gait exam (Neuro): Normal gait present Sensory Exam: No Sensory deficit (Neuro) Psych Appearance: grossly normal Affect: normal affect Attitude: cooperative Thought process: Normal thought process present Assessment and Plan Assessment & Plan (1) Hypertension: Code(s): I10 - Essential (primary) hypertension Plan: Resting blood pressure is 144/100, above goal of less than 140/90 Will increase metoprolol to 100 mg twice daily. Advised to take as prescribed Continue to take losartan-HCTZ as prescribed Low-sodium diet encouraged Follow-up with [facility] weight management as planned; weight loss may improve blood pressure Encouraged to report symptoms of hypotension such as dizziness/lightheadedness Return in 1 month or sooner with symptoms or concerns Verbalized understanding and agreed with treatment plan Medications: New metoprolol tartrate 100 mg PO BID 30 days 60 tabs 2RF Discontinued metoprolol tartrate Discontinued Reason: Doctor's Order 75 mg PO BID 30 days 60 tabs 1RF Coding Level of Care Code New Pt Level 3 (14001) Diagnoses Hypertension I10
== END 2024-04-20 10:29 | disposition home or self-care (01) ==
PROVIDERS: PCP Nurse Practitioner Family; Visit Provider Nurse Practitioner Family
DX: I10 Essential (primary) hypertension (principal)
CPT/HCPCS: 99213

== ENCOUNTER 2024-04-23 08:44 | Outpatient (AMB) | payer BC, SELFPAY ==
--- NOTE | 2024-04-23 08:49 | MHC.OFFVIS ---
Vital Signs 04/23/24 08:50 Height 5 ft 9.5 in Weight 455 lb 6 oz BMI 66.3 BP 146/82 H Blood Pressure Location Rt brachial Position Left Lateral Respiration 16 Pulse 77 Pulse Source Pulse Oximeter Pulse Oximetry (%) 97 Oxygen Delivery Method Room Air Intake Visit Reasons: 4m follow up RASHEED-CONF Intake Note: Pt presents for a 2 month follow up for RASHEED. 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 Pt denies any significant interval medical changes. Previous split night sleep study. The sleep study result was significant for a severe degree of sleep apnea. The AHI was 125/hr and oxygen shon was 74%. His breathing and oxygenation stablized with CPAP at [id number]. zunfortunately, pt did not tolertae CPAP once he tried it at [facility]- it caused a panic attack and PTSD s/s. Pt has recently been referred to [facility] weight management clinic. He has not heard from the dental office to discuss being fitted for a mandibular device. He has a h/o insomnia, but has worked to manage this w/ psychiatry and therapist. Usually takes a benadryl and melatonin for sleep. Generally sleeps 8 hrs per night- usually gets REM sleep. Tends to sleep in prone postion. Not typically sleepy. 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 [employer] Medical History Inguinal hernia Insomnia Hypertension Depression Hay fever Surgical History No pertinent past surgical history Family History Mother Diabetes Cardiovascular disease Cancer Father Hypertension Alcoholism Psychiatric problem Maternal Grandmother Diabetes Breast cancer Paternal Grandmother Lung cancer Maternal Grandfather Psychiatric problem Paternal Grandfather Alcoholism Other Mental health disorder Social History Housing: Apartment Alcohol intake: never Patient Tobacco Use Status: Never used Tobacco e-Cigarette/Vaping Use: Never Used service: No Current occupational status: employed Current occupation: Patient works with the [employer] Cognitive needs: No Hearing needs: No Vision needs: No Physical Exam Vital Signs: Last Vital Signs Pulse 77 04/23/24 08:50 Resp 16 04/23/24 08:50 BP 146/82 H 04/23/24 08:50 Pulse Ox 97 04/23/24 08:50 Oxygen Delivery Method Room Air 04/23/24 08:50 BMI result Body Mass Index 66.3 Const General: cooperative and no acute distress Orientation/consciousness: patient oriented x3 Resp Effort & Inspection: normal respiratory effort and able to speak in complete sentences Neuro General: patient oriented x3 Cranial nerves: Yes CN's II-XII intact bilaterally Cognition (Neuro): normal cognition Psych Appearance: grossly normal Mental Status: mental status grossly normal Speech and movement: Normal speech and movement present Affect: normal affect Attitude: cooperative Assessment & Plan Assessment & Plan (1) Sleep apnea: Comment: significant for a severe degree of sleep apnea. The AHI was 125/hr and oxygen shon was 74%. Code(s): G47.30 - Sleep apnea, unspecified Category: Medical (2) Insomnia: Code(s): G47.00 - Insomnia, unspecified Category: Medical (3) PTSD (post-traumatic stress disorder): Code(s): F43.10 - Post-traumatic stress disorder, unspecified Category: Medical (4) Morbid obesity with BMI of 60.0-69.9, adult: Code(s): E66.01 - Morbid (severe) obesity due to excess calories; Z68.44 - Body mass index [BMI] 60.0-69.9, adult Category: Medical Plan Concur / [facility] weight management consult. Dental consult for mandibular device- info shared w/ pt. Alternatively, could also consider Somnogurad mandibular device. Advised this will not likely fully correct his severe RASHEED. Adjunct w/ sleeping prone or w/ HOB elevated. May add breathe-right strips. May continue Benadryl and Melatonin qhs prn. Consider Inspire consult if BMI falls < 40 and AHI falls < 65. f/u in 6 months or sooner prn. Coding Level of Care Code Est Pt Level 3 (13634) Diagnoses Sleep apnea G47.30 Insomnia G47.00 PTSD (post-traumatic stress disorder) F43.10 Morbid obesity with BMI of 60.0-69.9, adult E66.01; Z68.44
[2024-04-23 08:50] VITALS: BP 146/82; PULSE 77; RESP 16; O2SAT 97; BMI 66.3
== END 2024-04-23 09:38 | disposition home or self-care (01) ==
PROVIDERS: PCP Nurse Practitioner Family; Visit Provider Nurse Practitioner Family
DX: G47.30 Sleep apnea, unspecified (principal); G47.00 Insomnia, unspecified; F43.10 Post-traumatic stress disorder, unspecified; E66.01 Morbid (severe) obesity due to excess calories; Z68.44 Body mass index [BMI] 60.0-69.9, adult
CPT/HCPCS: 99213

== ENCOUNTER → 2024-04-23 08:44 | Outpatient (BNVA) | payer BC, SELFPAY | PROVIDERS: PCP Nurse Practitioner Family; Visit Provider Nurse Practitioner Family | DX: G47.30 Sleep apnea, unspecified (principal); E66.01 Morbid (severe) obesity due to excess calories; Z68.44 Body mass index [BMI] 60.0-69.9, adult ==

== ENCOUNTER 2024-05-21 16:09 | Outpatient (AMB) | payer BC, SELFPAY ==
--- NOTE | 2024-05-21 16:11 | MHC.PC.OV ---
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 Required: No Allergies blueberry Adverse Reaction (Intermediate, Verified 05/21/24 16:30) Stomach Upset Medication List - Last Reconciled 05/21/24 by Rommel Flores CNP bupropion HCl SR (Wellbutrin SR) 150 mg PO QAM loratadine (Allergy Relief (loratadine)) 10 mg PO DAILY losartan-hydrochlorothiazide 100-12.5 mg 1 tab PO DAILY 90 days melatonin 10 mg PO BEDTIME PRN metoprolol tartrate 100 mg PO BID 30 days miscellaneous medical supply 1 extra-large blood pressure cuff/monitor vilazodone (Viibryd) 60 mg PO DAILY Tobacco use date assessed: 02/17/24 Dental Screening Dental Screen Date: 02/17/24 HPI HPI Comments History of Present Illness Details 39-year-old male presents for hypertension follow-up He admits to taking his medications as prescribed without adverse reactions His blood pressure at his last visit was 144/100. Metoprolol was increased from 75 mg twice daily to 100 mg twice daily He admits to maintaining a healthy diet, including low-sodium diet He offers no complaints and denies acute symptoms at this time He notes that he has a consultation appointment with [facility] on 06/20/2024 [facility] Medical History Inguinal hernia Insomnia Hypertension Depression Hay fever Surgical History No pertinent past surgical history Family History Mother Diabetes Cardiovascular disease Cancer Father Hypertension Alcoholism Psychiatric problem Maternal Grandmother Diabetes Breast cancer Paternal Grandmother Lung cancer Maternal Grandfather Psychiatric problem Paternal Grandfather Alcoholism Other Mental health disorder Social History Housing: Apartment Alcohol intake: never Patient Tobacco Use Status: Never used Tobacco e-Cigarette/Vaping Use: Never Used service: No Current occupational status: employed Current occupation: Patient works with the [employer] Cognitive needs: No Hearing needs: No Vision needs: No Questionnaire Thrive Questionnaire Date Thrive assessed: 02/28/23 AUDIT C Alcohol Use Questionnaire (AUDIT-C) 1. How often do you have a drink containing alcohol?: Monthly or less (every other month) 2. How many drinks containing alcohol do you have on a typical day when you are drinking?: 1 or 2 3. How often do you have six or more drinks on one occasion?: Never Total Score: 1 RAFIA-7 AMB Questionnaire RAFIA-7 Date RAFIA - 7 assessed: 02/17/24 Source: Developed by Drs. Eddie Alcantara, Hayde Meyer, Soto Mane and colleagues, with an educational rebecca from [employer]. Review of Systems Const Details: Const Denies chills, Denies fatigue, Denies fever(s), Denies headache(s) and Denies weakness ENT Denies dizziness and Denies headache(s) Card Denies chest pain, Denies lightheadedness, Denies dyspnea and Denies other (Palpitations) Resp Denies cough, Denies dyspnea, Denies wheezing and Denies other ( shortness of breath) GI Denies abdominal pain, Denies melena, Denies hematochezia, Denies change in bowel habits, Denies dyspepsia and Denies nausea Denies hematuria and Denies dysuria Musc Denies abnormal gait, Denies myalgias, Denies arthralgias, Denies numbness and Denies tingling Skin/Breast Denies rash, Denies unusual bruising and Denies wounds Neuro Denies abnormal gait, Denies dizziness, Denies headache(s), Denies memory loss, Denies numbness, Denies Sensory deficit (Neuro), Denies tingling and Denies weakness Psych Denies anxiety, Denies depression, Denies memory loss Endo Denies cold intolerance, Denies fatigue, Denies heat intolerance, Denies polydipsia and Denies polyuria Aller/Immun Denies wheezing Physical exam (Primary Care) Tobacco/Smoking Status: Tobacco use Status Tobacco use date assessed 02/17/24 05/21/24 16:12 Patient Tobacco Use Status Never used Tobacco 05/21/24 16:12 e-Cigarette/Vaping Use Never Used 05/21/24 16:12 Thrive Assessment: Date of Thrive Assessment Date Thrive assessed 02/28/23 05/21/24 16:12 Const Other: General: no acute distress and well developed Nutritional Appearance: well nourished Orientation/consciousness: patient oriented x3 [facility] Head: Yes normocephalic and Yes atraumatic Eyes General: appearance normal, both eyes and all related structures Pupils: Equal, round and reactive pupils present EOM: EOMs intact bilaterally Resp Effort & Inspection: normal respiratory effort Auscultation: clear to auscultation bilaterally Cardio Rate: regular rate Rhythm: regular rhythm Heart sounds: S1 normal heart sound present, S2 normal heart sound present, no gallops, no murmurs and no rubs GI Palpation (GI): No Abdominal aortic bruit present, Soft to palpation, nontender, No hepatosplenomegaly present and No Rebound tenderness present Auscultation: normal bowel sounds General: Yes no CVA tenderness Back/Spine/Pelvis Back: no CVA tenderness Cervical Spine: cervical ROM normal and No Cervical spine tenderness Thoracic/Lumbar Spine: thoraco-lumbar ROM normal, No pain with thoraco-lumbar ROM, No thoracic spinal tenderness and No lumbar spinal tenderness Extrem General: Yes normal to inspection, No edema and No calf tenderness Skin General: warm and dry. Normal skin color. Normal skin turgor Neuro General: patient oriented x3, gait normal and no focal neuro deficit Cranial nerves: Yes Equal, round and reactive pupils present Cognition (Neuro): normal cognition Gait exam (Neuro): Normal gait present Sensory Exam: No Sensory deficit (Neuro) Psych Appearance: grossly normal Affect: normal affect Attitude: cooperative Thought process: Normal thought process present Assessment and Plan Assessment & Plan (1) Hypertension: Code(s): I10 - Essential (primary) hypertension Qualifiers: Hypertension type: primary hypertension Qualified Code(s): I10 - Essential (primary) hypertension Plan: Resting blood pressure is 120/84, within goal of less than 140/90 Continue current treatment regimen Low-sodium diet encouraged Follow-up in 1 month for an extended physical exam or sooner with symptoms or concerns Verbalized understanding and agreed with the treatment plan (2) Laboratory tests ordered as part of a complete physical exam (CPE): Code(s): Z00.00 - Encounter for general adult medical examination without abnormal findings Plan: Fasting labs ordered in preparation of a complete physical exam. Advised to fast for at least 10 hours before getting labs drawn. May drink water Verbalized understanding and agreed with treatment plan. Orders: Orders Complete Blood Count Auto Diff Today Z00.00 - Encounter for general adult medical examination without abnormal findings Lipid Panel Today Z00.00 - Encounter for general adult medical examination without abnormal findings TSH reflex Free T4 Today Z00.00 - Encounter for general adult medical examination without abnormal findings UA CC w/rflx Micro + Cult Today Z00.00 - Encounter for general adult medical examination without abnormal findings Hemoglobin A1c Today R73.03 - Prediabetes Complete Blood Count no Diff Today Z00.00 - Encounter for general adult medical examination without abnormal findings Coding Level of Care Code Est Pt Level 3 (24977) Diagnoses Primary hypertension I10 Hypertension type: primary hypertension Laboratory tests ordered as part of a complete physical exam (CPE) Z00.00
[2024-05-21 16:16] VITALS: BP 144/76; PULSE 73; RESP 16; TEMP 36.4; O2SAT 94; BMI 65.2
[2024-05-21 16:33] VITALS: BP 128/84
== END 2024-05-21 16:39 | disposition home or self-care (01) ==
PROVIDERS: PCP Nurse Practitioner Family; Visit Provider Nurse Practitioner Family
DX: I10 Essential (primary) hypertension (principal); Z00.00 Encounter for general adult medical examination without abnormal findings
CPT/HCPCS: 99213

== ENCOUNTER 2024-06-13 09:52 | Outpatient (REF) | payer BC, SELFPAY ==
[2024-06-13 11:09] LABS: MANUAL DIFF FLAG NO
[2024-06-13 11:28] LABS: Basophils Absolute Auto 0.1 X10*3/uL (0.0-0.2); Basophils Percent Auto 0.6 % (0-2); Eosinophils Absolute Auto 0.3 X10*3/uL (0.0-0.4); Hemoglobin 16.6 g/dl (14.0-18.0); Imm Gran Abs Auto 0.04 X10*3/uL (0.00-0.03); Imm Gran Pct Auto 0.5 % (0.0-0.4); Lymphocytes Absolute Auto 3.1 X10*3/uL (1.2-4.9); Lymphocytes Percent Auto 36.3 % (20-40); Mean Corpuscular HGB Conc 34.6 g/dl (31.0-36.0); Mean Corpuscular Hemoglobin 30.6 pg (27.0-33.0); Mean Corpuscular Volume 88.6 fL (80.0-98.0); Mean Platelet Volume 9.6 fL (9.4-12.4); Monocytes Absolute Auto 0.6 X10*3/uL (0.1-1.2); Monocytes Percent Auto 7.4 % (2-11); Neutrophils Absolute Auto 4.4 x10*3/uL (2.0-8.3); Neutrophils Percent Auto 52.2 % (45-73); Platelet Count 296 X10*3/uL (160-400); Red Blood Count 5.42 X10*6/uL (4.60-5.80); White Blood Count 8.4 X10*3/uL (4.8-10.8)
[2024-06-13 11:35] LABS: Estimated Average Glucose 120 mg/dL; Hemoglobin A1c % 5.8 % (<6.0)
[2024-06-13 11:43] LABS: Appearance Urine Clear; Color Urine Dark Yellow; Glucose Urine UA Negative (Negative); Leukocyte Esterase Urine Negative (Negative); Nitrite Urine Negative (Negative); PH 5.5 (5.0-9.0); Specific Gravity - Urine 1.025 (1.005-1.025); Urine Blood Negative (Negative); Urine Ketones Negative (Negative); Urine Protein Trace mg/dL (Neg-Trace)
[2024-06-13 11:54] LABS: Cholesterol 198 mg/dL (<200); HDL Cholesterol 44 mg/dL (>40); LDL Cholesterol Calculated 113 mg/dL (<100); Triglycerides 207 mg/dL (<150)
[2024-06-13 11:59] LABS: TSH reflex Free T4 1.47 uIU/mL (0.32-4.0)
== END 2024-06-13 09:53 | disposition home or self-care (01) ==
LOC: HO.WFDLDS 09:52
PROVIDERS: Visit Provider Nurse Practitioner Family
DX: Z00.00 Encounter for general adult medical examination without abnormal findings (principal); R73.03 Prediabetes
CPT/HCPCS: 36415; 80061; 81003; 83036; 84443; 85025; 85027

== ENCOUNTER 2024-06-18 08:29 | Outpatient (AMB) | payer BC, SELFPAY ==
--- NOTE | 2024-06-18 08:31 | A.OFFPC_ITS ---
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 Required: No Allergies blueberry Adverse Reaction (Intermediate, Verified 06/18/24 08:47) Stomach Upset Medication List - Last Reconciled 06/18/24 by Rommel Flores CNP bupropion HCl SR (Wellbutrin SR) 150 mg PO QAM loratadine (Allergy Relief (loratadine)) 10 mg PO DAILY losartan-hydrochlorothiazide 100-12.5 mg 1 tab PO DAILY 90 days melatonin 10 mg PO BEDTIME PRN metoprolol tartrate 100 mg PO BID 30 days miscellaneous medical supply 1 extra-large blood pressure cuff/monitor vilazodone (Viibryd) 60 mg PO DAILY Tobacco use date assessed: 06/18/24 Dental Screening Dental Screen Date: 06/18/24 Did you have a dental visit in the last 12 months?: No Did you have a dental problem in the last 6 months where you did not have access to dental care?: No Was dental information given to patient?: Patient declined HPI HPI Comments History of Present Illness Details 39-year-old male presents for a complete physical exam He has past medical history significant for hypertension, autism, morbid obesity, myopia, anxiety, and depression He reports control anxiety and depression symptoms. He is followed by a therapist and psychiatrist. His psychiatrist manages his psychotropic medications He notes that he generally eats eats healthy and sleeps well. He has been walking routinely He has not had an eye exam in over 2 years. However, he plans to call and schedule an appointment with an long wall mining machine tender He has not received dental care in over a year Nonsmoker. Drinks alcohol occasionally. No recreational drugs He notes that he has an appointment with [facility] bariatric surgery for a consultation [facility] Medical History Inguinal hernia Insomnia Hypertension Depression Hay fever Surgical History No pertinent past surgical history Family History Mother Diabetes Cardiovascular disease Cancer Father Hypertension Alcoholism Psychiatric problem Maternal Grandmother Diabetes Breast cancer Paternal Grandmother Lung cancer Maternal Grandfather Psychiatric problem Paternal Grandfather Alcoholism Other Mental health disorder Social History (Reviewed 04/23/24 @ 08:50 by Radha Frost [facility] [address]) Housing: Apartment Alcohol intake: never Patient Tobacco Use Status: Never used Tobacco e-Cigarette/Vaping Use: Never Used Second Hand Smoke Exposure: No service: No Current occupational status: employed Current occupation: Patient works with the [employer] Current occupational exposures/hazards: No Cognitive needs: No Hearing needs: No Vision needs: No Questionnaire PHQ-9 Over the last 2 weeks, how often have you been bothered by any of the following problems? 1. Little interest or pleasure in doing things: several days 2. Feeling down, depressed, or hopeless: several days 3. Trouble falling or staying asleep, or sleeping too much: several days 4. Feeling tired or having little energy: several days 5. Poor appetite or overeating: more than half the days 6. Feeling bad about yourself - or that you are a failure or have let yourself or your family down: several days 7. Trouble concentrating on things, such as reading the newspaper or watching television: more than half the days 8. Moving or speaking so slowly that other people could have noticed. Or the opposite - being so fidgety or restless that you have been moving around a lot more than usual: not at all 9. Thoughts that you would be better off or of hurting yourself in some way: not at all Total score: 9 Depression Screening Interpretation: Positive Depression Screening Follow-up: Existing condition and In treatment Depression Screening Done: Yes 55878 - PHQ-9 Billing: Yes Source: Developed by Drs. Eddie Alcantara, Hayde Meyer, Soto Mane and colleagues, with an educational rebecca from [place] [facility]. Thrive Questionnaire Date Thrive assessed: 06/18/24 I am a: Patient What is your living situation today?: I have a steady place to live Within the past 12 months, did the food you bought not last and you didn't have the money to get more?: Never true Within the past 12 months, did you worry whether your food would run out before you got money to buy more?: Never true Do you have trouble paying for medicines?: No Do you have trouble getting transportation to medical appointments?: No Do you have trouble paying your heating and electricity bill?: No Do you have trouble taking care of your child, family member or friend?: No Do you have trouble with day-to-day activities such as bathing, preparing meals, shopping, managing finances, etc.?: No Are you interested in more education?: No Please select the resources that you would like help with: None Currently or been in a relationship where the following occur: No concerns reported THRIVE Score: 0 AUDIT C Alcohol Use Questionnaire (AUDIT-C) 1. How often do you have a drink containing alcohol?: Monthly or less (a couple times a year) 2. How many drinks containing alcohol do you have on a typical day when you are drinking?: 1 or 2 3. How often do you have six or more drinks on one occasion?: Never Total Score: 1 RAFIA-7 AMB Questionnaire RAFIA-7 Date RAFIA - 7 assessed: 06/18/24 Feeling nervous, anxious, or on edge: 1 = Several days Not being able to stop or control worryin = More than half the days Worrying too much about different things: 2 = More than half the days Trouble relaxin = Several days Being so restless that it is hard to sit still: 0 = Not at all Becoming easily annoyed or irritable: 0 = Not at all Feeling afraid as if something awful might happen: 1 = Several days Total RAFIA-7 score (0-4 normal; 5-9 mild; 10-14 moderate; 15-21 severe): 7 Source: Developed by Drs. Eddie Alcantara, Hayde Meyer, Soto Mane and colleagues, with an educational rebecca from [place] [facility]. RAFIA-7 Assessment Billing RAFIA-7 Assessment Tool: RAFIA-7 Assessment 88644 Review of Systems Const Details: Denies chills, Denies fatigue, Denies fever(s), Denies headache(s) and Denies weakness HEENT Denies change in vision, Denies dizziness, Denies headache(s), Denies hearing loss, Denies nasal congestion, Denies sinus pain, Denies sinus pressure and Denies sore throat Card Denies chest pain, Denies lightheadedness, Denies dyspnea and Denies other (palpitations) Resp Denies cough, Denies dyspnea and Denies wheezing GI Denies abdominal pain, Denies melena, Denies hematochezia, Denies change in bowel habits, Denies dyspepsia and Denies nausea Denies hematuria and Denies dysuria Musc Denies abnormal gait, Denies myalgias, Denies arthralgias, Denies numbness and Denies tingling Skin/Breast Denies rash, Denies unusual bruising and Denies wounds Neuro Denies abnormal gait, Denies dizziness, Denies headache(s), Denies memory loss, Denies numbness, Denies Sensory deficit (Neuro), Denies tingling and Denies weakness Psych Denies anxiety, Denies depression and Denies memory loss Endo Denies cold intolerance, Denies fatigue, Denies heat intolerance, Denies polydipsia and Denies polyuria Justin/Lymph Denies easy bleeding and Denies easy bruising Aller/Immun Denies wheezing Physical exam (Primary Care) Tobacco/Smoking Status: Tobacco use Status Tobacco use date assessed 06/18/24 06/18/24 08:36 Patient Tobacco Use Status Never used Tobacco 06/18/24 08:33 e-Cigarette/Vaping Use Never Used 06/18/24 08:33 Depression Screening Interpretation: Positive Depression Screening Follow-up: Existing condition and In treatment Thrive Assessment: Date of Thrive Assessment Date Thrive assessed 02/28/23 06/18/24 08:33 Currently or been in a relationship where the following occur: No concerns reported Const Other: General: no acute distress, well developed, alert and awake Nutritional Appearance: well nourished Orientation/consciousness: patient oriented x3 HENMT Head: Yes normocephalic and Yes atraumatic Ears: hearing grossly normal bilaterally and TM's normal bilaterally General nose exam: Normal external nose present and Normal nares present Mouth: Normal oral and palatal mucosa present and moist mucous membranes Teeth and gingiva: dentition normal Throat: Yes oropharynx normal Eyes Pupils: Equal, round and reactive pupils present and Pupil accommodation reflex normal EOM: EOMs intact bilaterally Neck Neck: Yes normal visual inspection, Yes no lymphadenopathy and Yes trachea midline Thyroid: Thyroid normal Carotids: no bruits Lymphatic: no lymphadenopathy noted Chest Chest palpation & inspection: normal inspection of the chest Resp Effort & Inspection: normal respiratory effort Auscultation: clear to auscultation bilaterally Cardio Rate: regular rate Rhythm: regular rhythm Heart sounds: S1 normal heart sound present, S2 normal heart sound present, no gallops, no murmurs and no rubs Bruits: no abdominal aortic bruits and no carotid bruits GI Palpation (GI): No Abdominal aortic bruit present, Soft to palpation, nontender, No hepatosplenomegaly present and No Rebound tenderness present Auscultation: normal bowel sounds General: Yes no CVA tenderness Back/Spine/Pelvis Back: no CVA tenderness Cervical Spine: cervical ROM normal and No Cervical spine tenderness Thoracic/Lumbar Spine: thoraco-lumbar ROM normal, No pain with thoraco-lumbar R OM, No thoracic spinal tenderness and No lumbar spinal tenderness Skin General: warm and dry. Normal skin color. Normal skin turgor Lesions: no lesions Rashes: no rashes Trauma: no lacerations or abrasions Wounds: no wounds Nails: normal Neuro General: patient oriented x3, gait normal and CN's II-XI intact bilaterally Cranial nerves: Yes Equal, round and reactive pupils present Cognition (Neuro): normal cognition Gait exam (Neuro): Normal gait present Motor exam (neuro): 5/5 motor strength present throughout Sensory Exam: No Sensory deficit (Neuro) Deep tendon reflexes (DTR's): Right patellar reflex intensity grade: 2+ and Left patellar reflex intensity grade: 2+ Extrem General: Yes normal to inspection, No edema and No calf tenderness Psych Appearance: grossly normal Affect: normal affect Attitude: cooperative Thought process: Normal thought process present Assessment and Plan Assessment & Plan (1) Normal physical examination, routine: Code(s): Z00.00 - Encounter for general adult medical examination without abnormal findings Plan: No significant physical restrictions or limitations noted Continue current treatment regimen Healthy diet and routine exercise encouraged Advised to continue to follow-up with his therapist and psychiatrist as planned Encouraged to schedule an appointment for routine dental care and eye exam (2) Prediabetes: Code(s): R73.03 - Prediabetes Plan: Recent labs reviewed with the patient A1c is 5.8 Healthy diet and routine exercise encouraged. Advised to limit high carbs such as rice, pasta, potato, or bread Will monitor A1c level periodically Follow-up with symptoms or concerns Verbalized understanding and agreed with the treatment plan (3) Hypertriglyceridemia: Code(s): E78.1 - Pure hyperglyceridemia Plan: Recent triglyceride level is elevated, 207 Advised to limit foods high in saturated fat and avoid foods high in trans fat Routine exercise encouraged Will recheck lipid levels. Advised to fast for 10-12 hours, may drink water only, and get blood work done a few days before his next visit Follow-up in 2 months Verbalized understanding and agreed with the treatment plan (4) Hypertension: Code(s): I10 - Essential (primary) hypertension Qualifiers: Hypertension type: primary hypertension Qualified Code(s): I10 - Essential (primary) hypertension Plan: Blood pressure is 114/84, within goal of less than 140/90 Continue current treatment regimen Low-sodium diet and routine exercise encouraged Follow-up 2 months Verbalized understanding and agreed with the treatment plan (5) Morbid obesity with BMI of 60.0-69.9, adult: Code(s): E66.01 - Morbid (severe) obesity due to excess calories; Z68.44 - Body mass index [BMI] 60.0-69.9, adult Plan: He currently weighs 449 lb, BMI is 64.5 He has been making healthy dietary changes and exercising routinely He has an appointment with [facility] bariatric surgery this week for consultation Healthy diet and routine exercise encouraged Follow-up with bariatric surgery as planned Return with symptoms or concerns Verbalized understanding and agreed with treatment plan (6) Myopia: Code(s): H52.10 - Myopia, unspecified eye Plan: Corrected by prescription glasses He has not had an eye exam in over 2 years but would call and schedule an appointment with an long wall mining machine tender Orders: Orders Lipid Panel 2 Months E78.1 - Pure hyperglyceridemia Coding Level of Care Code Est Pt Level 4 (15954) Est Pt Prev Care 18-39y(82115) Diagnoses Normal physical examination, routine Z00.00 Prediabetes R73.03 Hypertriglyceridemia E78.1 Primary hypertension I10 Hypertension type: primary hypertension Morbid obesity with BMI of 60.0-69.9, adult E66.01; Z68.44 Myopia H52.10 Additional Codes RAFIA-7 Assessment Billing - RAFIA-7 Assessment Tool: RAFIA-7 Assessment 66251 ([id number])
[2024-06-18 08:37] VITALS: BP 114/84; PULSE 72; RESP 16; TEMP 36.7; O2SAT 95; BMI 64.5
== END 2024-06-18 09:19 | disposition home or self-care (01) ==
PROVIDERS: PCP Nurse Practitioner Family; Visit Provider Nurse Practitioner Family
DX: Z00.00 Encounter for general adult medical examination without abnormal findings (principal); E66.01 Morbid (severe) obesity due to excess calories; Z68.44 Body mass index [BMI] 60.0-69.9, adult; R73.03 Prediabetes; E78.1 Pure hyperglyceridemia; I10 Essential (primary) hypertension
CPT/HCPCS: 99395

== ENCOUNTER 2024-08-21 08:11 | Outpatient (REF) | payer BC, SELFPAY ==
[2024-08-21 12:02] LABS: Cholesterol 179 mg/dL (<200); HDL Cholesterol 39 mg/dL (>40); LDL Cholesterol Calculated 103 mg/dL (<100); Triglycerides 189 mg/dL (<150)
== END 2024-08-21 08:12 | disposition home or self-care (01) ==
LOC: HO.WFDLDS 08:11
PROVIDERS: Visit Provider Nurse Practitioner Family
DX: E78.1 Pure hyperglyceridemia (principal)
CPT/HCPCS: 36415; 80061

== ENCOUNTER 2024-08-23 15:01 | Outpatient (AMB) | payer BC, SELFPAY ==
--- NOTE | 2024-08-23 15:08 | MHC.PC.OV ---
Vital Signs 08/23/24 15:17 Height 5 ft 10 in Weight 427 lb BMI 61.3 BP 124/88 Blood Pressure Location Lt brachial Position Sitting Respiration 16 Pulse 68 Pulse Source Pulse Oximeter Temp 97.5 F Temp Source Oral Pulse Oximetry (%) 94 Oxygen Delivery Method Room Air Intake Visit Reasons: Hypertrigyceridemia HTN Intake Note: patient here to follow up on Hypertrigyceridema and HTN. 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 Allergies blueberry Adverse Reaction (Intermediate, Verified 08/23/24 15:11) Stomach Upset Tobacco use date assessed: 08/23/24 Dental Screening Dental Screen Date: 08/23/24 Did you have a dental visit in the last 12 months?: No Did you have a dental problem in the last 6 months where you did not have access to dental care?: No Was dental information given to patient?: Patient has dentist HPI HPI Comments History of Present Illness Details 39-year-old male presents for hypertension and hypertriglyceridemia follow-up He admits to taking his medications as prescribed without adverse reactions Admits to making healthy lifestyle changes. He is followed by [facility] and has lost 22 lb since his last visit. He intends to have a sleeve gastrectomy He offers no complaints and denies acute symptoms at this time [facility] Medical History Inguinal hernia Insomnia Hypertension Depression Hay fever Surgical History No pertinent past surgical history Family History Mother Diabetes Cardiovascular disease Cancer Father Hypertension Alcoholism Psychiatric problem Maternal Grandmother Diabetes Breast cancer Paternal Grandmother Lung cancer Maternal Grandfather Psychiatric problem Paternal Grandfather Alcoholism Other Mental health disorder Social History Housing: Apartment Alcohol intake: never Patient Tobacco Use Status: Never used Tobacco e-Cigarette/Vaping Use: Never Used Second Hand Smoke Exposure: No service: No Current occupational status: employed Current occupation: Patient works with the [employer] Current occupational exposures/hazards: No Cognitive needs: No Hearing needs: No Vision needs: No Questionnaire PHQ-9 Over the last 2 weeks, how often have you been bothered by any of the following problems? 1. Little interest or pleasure in doing things: several days 2. Feeling down, depressed, or hopeless: several days 3. Trouble falling or staying asleep, or sleeping too much: not at all 4. Feeling tired or having little energy: not at all 5. Poor appetite or overeating: several days 6. Feeling bad about yourself - or that you are a failure or have let yourself or your family down: several days 7. Trouble concentrating on things, such as reading the newspaper or watching television: more than half the days 8. Moving or speaking so slowly that other people could have noticed. Or the opposite - being so fidgety or restless that you have been moving around a lot more than usual: not at all 9. Thoughts that you would be better off or of hurting yourself in some way: not at all Total score: 6 Depression Screening Interpretation: Positive Depression Screening Follow-up: Existing condition and In treatment Depression Screening Done: Yes Source: Developed by Drs. Eddie Alcantara, Hayde Meyer, Soto Mane and colleagues, with an educational rebecca from [employer]. Thrive Questionnaire Date Thrive assessed: 08/22/24 I am a: Patient What is your living situation today?: I have a steady place to live Within the past 12 months, did the food you bought not last and you didn't have the money to get more?: Never true Within the past 12 months, did you worry whether your food would run out before you got money to buy more?: Never true Do you have trouble paying for medicines?: No Do you have trouble getting transportation to medical appointments?: No Do you have trouble paying your heating and electricity bill?: No Do you have trouble taking care of your child, family member or friend?: No Do you have trouble with day-to-day activities such as bathing, preparing meals, shopping, managing finances, etc.?: No Are you currently unemployed and looking for a job?: No Are you interested in more education?: No Please select the resources that you would like help with: None Currently or been in a relationship where the following occur: No concerns reported THRIVE Score: 0 AUDIT C Alcohol Use Questionnaire (AUDIT-C) 1. How often do you have a drink containing alcohol?: Monthly or less 2. How many drinks containing alcohol do you have on a typical day when you are drinking?: 1 or 2 Total Score: 1 RAFIA-7 AMB Questionnaire RAFIA-7 Date RAFIA - 7 assessed: 06/18/24 Feeling nervous, anxious, or on edge: 1 = Several days Not being able to stop or control worryin = Several days Worrying too much about different things: 1 = Several days Trouble relaxin = Several days Being so restless that it is hard to sit still: 0 = Not at all Becoming easily annoyed or irritable: 1 = Several days Feeling afraid as if something awful might happen: 1 = Several days Total RAFIA-7 score (0-4 normal; 5-9 mild; 10-14 moderate; 15-21 severe): 6 Source: Developed by Drs. Eddie Alcantara, Hayde Meyer, Soto Mane and colleagues, with an educational rebecca from [employer]. Review of Systems Const Details: Const Denies chills, Denies fatigue, Denies fever(s), Denies headache(s) and Denies weakness ENT Denies dizziness and Denies headache(s) Card Denies chest pain, Denies lightheadedness, Denies dyspnea and Denies other (Palpitations) Resp Denies cough, Denies dyspnea, Denies wheezing and Denies other ( shortness of breath) GI Denies abdominal pain, Denies melena, Denies hematochezia, Denies change in bowel habits, Denies dyspepsia and Denies nausea Denies hematuria and Denies dysuria Musc Denies abnormal gait, Denies myalgias, Denies arthralgias, Denies numbness and Denies tingling Skin/Breast Denies rash, Denies unusual bruising and Denies wounds Neuro Denies abnormal gait, Denies dizziness, Denies headache(s), Denies memory loss, Denies numbness, Denies Sensory deficit (Neuro), Denies tingling and Denies weakness Psych Denies anxiety, Denies depression, Denies memory loss Endo Denies cold intolerance, Denies fatigue, Denies heat intolerance, Denies polydipsia and Denies polyuria Aller/Immun Denies wheezing Physical exam (Primary Care) Tobacco/Smoking Status: Tobacco use Status Tobacco use date assessed 08/23/24 08/23/24 15:18 Patient Tobacco Use Status Never used Tobacco 08/23/24 15:18 e-Cigarette/Vaping Use Never Used 08/23/24 15:18 PHQ-9: PHQ-9 Score PHQ-9: Total score 6 08/23/24 15:18 Depression Screening Interpretation: Positive Depression Screening Follow-up: Existing condition and In treatment Thrive Assessment: Date of Thrive Assessment Date Thrive assessed 08/22/24 08/23/24 15:18 Currently or been in a relationship where the following occur: No concerns reported Const Other: General: no acute distress and well developed Nutritional Appearance: well nourished Orientation/consciousness: patient oriented x3 HENMT Head: Yes normocephalic and Yes atraumatic Eyes General: appearance normal, both eyes and all related structures Pupils: Equal, round and reactive pupils present EOM: EOMs intact bilaterally Resp Effort & Inspection: normal respiratory effort Auscultation: clear to auscultation bilaterally Cardio Rate: regular rate Rhythm: regular rhythm Heart sounds: S1 normal heart sound present, S2 normal heart sound present, no gallops, no murmurs and no rubs GI Palpation (GI): No Abdominal aortic bruit present, Soft to palpation, nontender, No hepatosplenomegaly present and No Rebound tenderness present Auscultation: normal bowel sounds General: Yes no CVA tenderness Back/Spine/Pelvis Back: no CVA tenderness Extrem General: Yes normal to inspection, No edema and No calf tenderness Skin General: warm and dry. Normal skin color. Normal skin turgor Neuro General: patient oriented x3, gait normal and no focal neuro deficit Cranial nerves: Yes Equal, round and reactive pupils present Cognition (Neuro): normal cognition Gait exam (Neuro): Normal gait present Sensory Exam: No Sensory deficit (Neuro) Psych Appearance: grossly normal Affect: normal affect Attitude: cooperative Thought process: Normal thought process present Coding Level of Care Code Est Pt Level 3 (37643) Diagnoses Primary hypertension I10 Hypertension type: primary hypertension Hypertriglyceridemia E78.1 Assessment & Plan Assessment & Plan (1) Hypertension: Code(s): I10 - Essential (primary) hypertension Category: Medical Qualifiers: Hypertension type: primary hypertension Qualified Code(s): I10 - Essential (primary) hypertension Plan: Blood pressure is 124/88, within goal of less than 140/90 Continue current treatment regimen Low-sodium diet encouraged Follow-up in 3-4 months or sooner with symptoms or concerns Verbalized understanding and agreed with the plan (2) Hypertriglyceridemia: Code(s): E78.1 - Pure hyperglyceridemia Category: Medical Plan: Recent triglycerides level with significant improvement, 189; previous level was 207 Total cholesterol and LDL levels are normal. HDL level is slightly low, 39 Advised to limit foods high in saturated fat and avoid foods high in trans fat Routine exercise encouraged May take fish oil daily Will recheck lipid panel level. Advised to fast for 10-12 hours, may drink water only, and get blood work done a few days before his next visit Follow-up in 3-4 months Verbalized understanding and agreed with the plan Orders: Orders Lipid Panel 3 Months E78.1 - Pure hyperglyceridemia
[2024-08-23 15:17] VITALS: BP 124/88; PULSE 68; RESP 16; TEMP 36.4; O2SAT 94; BMI 61.3
== END 2024-08-23 15:34 | disposition home or self-care (01) ==
PROVIDERS: PCP Nurse Practitioner Family; Visit Provider Nurse Practitioner Family
DX: I10 Essential (primary) hypertension (principal); E78.1 Pure hyperglyceridemia

== ENCOUNTER → 2024-08-23 15:01 | Outpatient (BNVA) | payer BC, SELFPAY | PROVIDERS: PCP Nurse Practitioner Family; Visit Provider Nurse Practitioner Family ==

== ENCOUNTER 2024-11-16 08:32 | Outpatient (AMB) | payer BC, SELFPAY ==
[2024-11-16 08:37] VITALS: BMI 57.5
--- NOTE | 2024-11-16 08:37 | A.OFFVIS_ITS ---
Vital Signs 11/16/24 08:37 Height 5 ft 10 in Weight 401 lb BMI 57.5 Intake Visit Reasons: 6 Month F/U Intake Note: Patient presents for 6 month follow up. Allergies blueberry Adverse Reaction (Intermediate, Verified 11/16/24 08:38) Stomach Upset Medication List - Last Reconciled 11/16/24 by SHERIF Dempsey bupropion HCl SR (Wellbutrin SR) 150 mg PO QAM hydrochlorothiazide 12.5 mg PO DAILY loratadine (Allergy Relief (loratadine)) 10 mg PO DAILY losartan-hydrochlorothiazide 100-12.5 mg 1 tab PO DAILY 90 days melatonin 10 mg PO BEDTIME PRN metoprolol tartrate 100 mg PO BID 30 days miscellaneous medical supply 1 extra-large blood pressure cuff/monitor vilazodone (Viibryd) 60 mg PO DAILY HPI Comments Details: 39-yr-old male presents for f/u visit for obstructive sleep apnea. 01/20/2024, split night sleep study. The sleep study result was significant for a severe degree of sleep apnea. The AHI was 125/hr and oxygen shon was 74%. His breathing and oxygenation stablized with CPAP at [id number]. Unfortunately, pt did not tolerate CPAP once he tried it at [facility]- it caused a panic attack and PTSD s/s. 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 He has had an almost 50 lb weight loss in last 6 months. He has not heard from the dental office to discuss being fitted for a mandibular device. He states his sleep is overall stable. Continues to sleep prone. May wake up briefly at night but can easily fall back asleep. He has a h/o insomnia, but has worked to manage this w/ psychiatry and therapist. Usually takes a benadryl 12.5mg chewable and melatonin for sleep. Not typically sleepy, though occasionally can have morning time sleep inertia. 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 [facility]LY [facility], [facility] Medical History Inguinal hernia Insomnia Hypertension Depression Hay fever Surgical History No pertinent past surgical history Family History Mother Diabetes Cardiovascular disease Cancer Father Hypertension Alcoholism Psychiatric problem Maternal Grandmother Diabetes Breast cancer Paternal Grandmother Lung cancer Maternal Grandfather Psychiatric problem Paternal Grandfather Alcoholism Other Mental health disorder Social History Housing: Apartment Alcohol intake: never Patient Tobacco Use Status: Never used Tobacco e-Cigarette/Vaping Use: Never Used Second Hand Smoke Exposure: No service: No Current occupational status: employed Current occupation: Patient works with the [employer] Current occupational exposures/hazards: No Cognitive needs: No Hearing needs: No Vision needs: No Physical Exam Vital Signs: BMI result Body Mass Index 57.5 Const General: cooperative and no acute distress Orientation/consciousness: patient oriented x3 Resp Effort & Inspection: normal respiratory effort and able to speak in complete sentences Neuro Other: Steady gait with walking stick General: patient oriented x3 Cranial nerves: Yes CN's II-XII intact bilaterally Cognition (Neuro): normal cognition Psych Appearance: grossly normal Mental Status: mental status grossly normal Speech and movement: Normal speech and movement present Affect: normal affect Attitude: cooperative Assessment & Plan Assessment & Plan (1) Sleep apnea: Comment: significant for a severe degree of sleep apnea. The AHI was 125/hr and oxygen shon was 74%. Code(s): G47.30 - Sleep apnea, unspecified Category: Medical (2) Insomnia: Code(s): G47.00 - Insomnia, unspecified Category: Medical (3) PTSD (post-traumatic stress disorder): Code(s): F43.10 - Post-traumatic stress disorder, unspecified Category: Medical Plan Continue working with [facility] weight management clinic. Information shared on Dental consult order for mandibular device- info shared w/ pt. Alternatively, could also consider Somnogurad mandibular device. Advised this will not likely fully correct his severe RASHEED. Continue to sleep in prone position. May continue Benadryl chewable 12.5 mg and Melatonin qhs prn. Consider Inspire consult if BMI falls < 40 and AHI falls < 100. f/u in 12 months or sooner prn. Coding Level of Care Code Est Pt Level 3 (26767) Diagnoses Sleep apnea G47.30 Insomnia G47.00 PTSD (post-traumatic stress disorder) F43.10
--- OUTSIDE RECORDS SUMMARY | 2024-11-16 08:38 | XMS_ITS | Continuity of Care Document ---
Author Organization [facility]. 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 Name Role Phone Unavailable Unavailable Unavailable Unavailable Unavailable Unavailable Problems Patient encounter status Onset:02-Jun-2020 PAC Radha Restrepo Follow-up status Onset:21-Dec-2014 Abscess of thigh Onset:19-Dec-2014 Follow-up status Onset:19-Dec-2014 Recurrent major depression in full remission Comments:MDD (major depressive disorder), recurrent, in full remission Generalized anxiety disorder Comments:Generalized anxiety disorder Anxiety Comments:Anxiety Autistic disorder Comments:Autism Allergies and Adverse Reactions No Known Drug Allergies(Victor Hugo rgy) Onset: 19-Dec-2014 Medications Benadryl;, REEMA DE LEON Comments:, clonazePAM 0.5 MG Oral Table t [KlonoPIN];0.5 MG Orally as needed, 1 tablet REEMA DE LEON Comments:0.5 MG Orally as needed, 1 tablet vilazodone hydrochloride 40 MG Oral Tablet [Viibryd];40 MG Orally every evening, 1 tablet with food Quantity:90 Refills:0 REEMA DE LEON Comments:40 MG Orally every evening, 1 tablet with food Losartan Potassium 100 MG Or al Tablet;100 MG Orally Once a day, 1 tablet Quantity:30 REEMA DE LEON Comments:100 MG Orally Once a day, 1 tablet Loratadine;10 MG Orally Once a day, 1 tablet Quantity:30 REEMA DE LEON Comments:10 MG Orally Once a day, 1 tablet Amlodipine Besylate;5 MG Ora lly Once a day, 1 tablet Quantity:30 REEMA DE LEON Comments:5 MG Orally Once a day, 1 tablet 12 HR buPROPion Hydrochlorid e 150 MG Extended Release Oral Tablet [Wellbutrin];150 MG Orally Once a day, 1 tablet in the morning Quantity:90 Refills:0 REEMA DE LEON Comments:150 MG Orally Once a day, 1 tablet in the morning Social History Smoking Status Never smoked tobacco Recorded: 02-Jun-2020
--- OUTSIDE RECORDS SUMMARY | 2024-11-16 08:38 | XMS_ITS | Patient Health Record ---
Author Organization [facility] Billing Info Address [address] [place] [id number] Support Name Relationship Address Phone Aly Streeter Guarantor Unknown [phone] Allergies No Known Allergies Reason For Referral No Information Medications Medication SIG (Take, Route, Frequency, Duration) Notes Start Date End Date Status Wellbutrin SR 150 MG 1 tablet in the morning Orally Once a day for 90 days Active Benadryl benadryl half ta b before bedtime. Active Losartan Potassium 100 MG 1 tablet Orally Once a day for 30 day(s) Active Amlodipine Besylate 5 MG 1 tablet Orally Once a day for 30 day(s) Active Loratadine 10 MG 1 tablet Orally Once a day for 30 day(s) Active Klonopin 0.5 MG 1 tablet Orally as needed takes it 6x year at most Active Viibryd 40 MG 1 tablet with food Orally every evening for 90 days Active Social History Tobacco Use: Social History Observation Description Date Details (start date - stop date) Never Smoker NA - NA Tobacco Status: Question Answer Notes Patient is a never smoker Problems Problem Type SNOMED Code ICD Code Onset Dates Problem Status W/U Status Risk Notes Problem Generalized anxiety disorder (76998812) Generalized anxiety disorder (F41.1) Active confirmed Problem [id number] Autism (F84.0) Active confirmed Problem 70980007 Anxiety (F41.9) Active confirmed Problem 79980055 MDD (major depressive disorder), recurrent, in full remission (F33.42) Active confirmed Plan Of Treatment No Information Insurance Providers Payer Name Payer Address Payer Phone Subscriber Number Group Number Insured Name Patient Relationship to Insured Coverage Start Date Coverage End Date [employer] CLAIMS [address] [place], [place] [id number] Aly Streeter Self - patient is the insured 0 [phone] Medical (General) History Medical History History ICD Code Depression Autism OCD Tourettes High blood pressure PTSD Surgical History Surgery Date(Month/Year) hernia repair childhood
== END 2024-11-16 09:12 | disposition home or self-care (01) ==
PROVIDERS: PCP Nurse Practitioner Family; Visit Provider Nurse Practitioner Family
DX: G47.30 Sleep apnea, unspecified (principal); G47.00 Insomnia, unspecified; F43.10 Post-traumatic stress disorder, unspecified
CPT/HCPCS: 99213

== ENCOUNTER → 2024-11-16 08:32 | Outpatient (BNVA) | payer BC, SELFPAY | PROVIDERS: PCP Nurse Practitioner Family; Visit Provider Nurse Practitioner Family ==

== ENCOUNTER 2024-12-17 16:04 | Outpatient (AMB) | payer BC, SELFPAY ==
--- NOTE | 2024-12-17 16:07 | MHC.PC.OV ---
Vital Signs 12/17/24 16:13 Height 5 ft 10 in Weight 393 lb 4 oz BMI 56.4 BP 132/78 Blood Pressure Location Rt brachial Position Sitting Respiration 16 Pulse 80 Pulse Source Pulse Oximeter Temp 97.4 F Temp Source Oral Pulse Oximetry (%) 96 Oxygen Delivery Method Room Air Intake Visit Reasons: 3-4 mos HTN, hypertriglyceridemia Intake Note: patient here for follow up on HTN and Hypertriglyceridema Exhibits Manager Required: No Allergies blueberry Adverse Reaction (Intermediate, Verified 12/17/24 16:13) Stomach Upset Medication List - Last Reconciled 12/17/24 by Rommel Flores CNP bupropion HCl SR (Wellbutrin SR) 150 mg PO QAM loratadine (Allergy Relief (loratadine)) 10 mg PO DAILY losartan-hydrochlorothiazide 100-12.5 mg 1 tab PO DAILY 90 days melatonin 10 mg PO BEDTIME PRN metoprolol tartrate 100 mg PO BID 30 days miscellaneous medical supply 1 extra-large blood pressure cuff/monitor vilazodone (Viibryd) 60 mg PO DAILY Tobacco use date assessed: 12/17/24 Dental Screening Dental Screen Date: 12/17/24 Did you have a dental visit in the last 12 months?: No Did you have a dental problem in the last 6 months where you did not have access to dental care?: No Was dental information given to patient?: Patient declined HPI HPI Comments History of Present Illness Details 39-year-old male presents for hypertension and hypertriglyceridemia follow-up., He admits to taking his medications as prescribed without adverse reactions. He has lost about 56 lb since he started the Weight Management program at [facility] about 4 months ago. He forgot to get lipid panel blood work done for this visit as planned. He offers no complaints and denies acute symptoms at this time. [facility] Medical History Inguinal hernia Insomnia Hypertension Depression Hay fever Surgical History No pertinent past surgical history Family History Mother Diabetes Cardiovascular disease Cancer Father Hypertension Alcoholism Psychiatric problem Maternal Grandmother Diabetes Breast cancer Paternal Grandmother Lung cancer Maternal Grandfather Psychiatric problem Paternal Grandfather Alcoholism Other Mental health disorder Social History Housing: Apartment Alcohol intake: never Patient Tobacco Use Status: Never used Tobacco e-Cigarette/Vaping Use: Never Used Second Hand Smoke Exposure: No service: No Current occupational status: employed Current occupation: Patient works with the [employer] Current occupational exposures/hazards: No Cognitive needs: No Hearing needs: No Vision needs: No Questionnaire PHQ-9 Over the last 2 weeks, how often have you been bothered by any of the following problems? 1. Little interest or pleasure in doing things: not at all 2. Feeling down, depressed, or hopeless: more than half the days 3. Trouble falling or staying asleep, or sleeping too much: not at all 4. Feeling tired or having little energy: several days 5. Poor appetite or overeating: not at all 6. Feeling bad about yourself - or that you are a failure or have let yourself or your family down: several days 7. Trouble concentrating on things, such as reading the newspaper or watching television: not at all 8. Moving or speaking so slowly that other people could have noticed. Or the opposite - being so fidgety or restless that you have been moving around a lot more than usual: not at all 9. Thoughts that you would be better off or of hurting yourself in some way: not at all Total score: 4 Depression Screening Interpretation: Negative Depression Screening Done: Yes Source: Developed by Drs. Eddie Alcantara, Hayde Meyer, Soto Mane and colleagues, with an educational rebecca from [employer]. Thrive Questionnaire Date Thrive assessed: 12/10/24 I am a: Patient What is your living situation today?: I have a steady place to live Within the past 12 months, did the food you bought not last and you didn't have the money to get more?: Never true Within the past 12 months, did you worry whether your food would run out before you got money to buy more?: Never true Do you have trouble paying for medicines?: No Do you have trouble getting transportation to medical appointments?: No Do you have trouble paying your heating and electricity bill?: No Do you have trouble taking care of your child, family member or friend?: No Do you have trouble with day-to-day activities such as bathing, preparing meals, shopping, managing finances, etc.?: No Are you currently unemployed and looking for a job?: No Are you interested in more education?: No Please select the resources that you would like help with: None Currently or been in a relationship where the following occur: No concerns reported THRIVE Score: 0 AUDIT C Alcohol Use Questionnaire (AUDIT-C) 1. How often do you have a drink containing alcohol?: Monthly or less 2. How many drinks containing alcohol do you have on a typical day when you are drinking?: 1 or 2 3. How often do you have six or more drinks on one occasion?: Never Total Score: 1 RAFIA-7 AMB Questionnaire RAFIA-7 Date RAFIA - 7 assessed: 06/18/24 Feeling nervous, anxious, or on edge: 1 = Several days Not being able to stop or control worryin = Several days Worrying too much about different things: 0 = Not at all Trouble relaxin = Not at all Being so restless that it is hard to sit still: 0 = Not at all Becoming easily annoyed or irritable: 0 = Not at all Feeling afraid as if something awful might happen: 1 = Several days Total RAFIA-7 score (0-4 normal; 5-9 mild; 10-14 moderate; 15-21 severe): 3 Source: Developed by Drs. Eddie Alcantara, Hayde Meyer, Soto Mane and colleagues, with an educational rebecca from [employer]. Review of Systems Const Details: Const Denies chills, Denies fatigue, Denies fever(s), Denies headache(s) and Denies weakness ENT Denies dizziness and Denies headache(s) Card Denies chest pain, Denies lightheadedness, Denies dyspnea and Denies other (Palpitations) Resp Denies cough, Denies dyspnea, Denies wheezing and Denies other ( shortness of breath) GI Denies abdominal pain, Denies melena, Denies hematochezia, Denies change in bowel habits, Denies dyspepsia and Denies nausea Denies hematuria and Denies dysuria Musc Denies abnormal gait, Denies myalgias, Denies arthralgias, Denies numbness and Denies tingling Skin/Breast Denies rash, Denies unusual bruising and Denies wounds Neuro Denies abnormal gait, Denies dizziness, Denies headache(s), Denies memory loss, Denies numbness, Denies Sensory deficit (Neuro), Denies tingling and Denies weakness Psych Denies anxiety, Denies depression, Denies memory loss Endo Denies cold intolerance, Denies fatigue, Denies heat intolerance, Denies polydipsia and Denies polyuria Aller/Immun Denies wheezing Physical exam (Primary Care) Tobacco/Smoking Status: Tobacco use Status Tobacco use date assessed 08/23/24 12/17/24 16:10 Patient Tobacco Use Status Never used Tobacco 12/17/24 16:10 e-Cigarette/Vaping Use Never Used 12/17/24 16:10 PHQ-9: PHQ-9 Score PHQ-9: Total score 4 12/17/24 16:10 Depression Screening Interpretation: Negative Thrive Assessment: Date of Thrive Assessment Date Thrive assessed 12/10/24 12/17/24 16:10 Currently or been in a relationship where the following occur: No concerns reported Const Other: General: no acute distress and well developed Nutritional Appearance: well nourished Orientation/consciousness: patient oriented x3 HENMT Head: Yes normocephalic and Yes atraumatic Eyes General: appearance normal, both eyes and all related structures Pupils: Equal, round and reactive pupils present EOM: EOMs intact bilaterally Resp Effort & Inspection: normal respiratory effort Auscultation: clear to auscultation bilaterally Cardio Rate: regular rate Rhythm: regular rhythm Heart sounds: S1 normal heart sound present, S2 normal heart sound present, no gallops, no murmurs and no rubs GI Palpation (GI): No Abdominal aortic bruit present, Soft to palpation, nontender, No hepatosplenomegaly present and No Rebound tenderness present Auscultation: normal bowel sounds General: Yes no CVA tenderness Back/Spine/Pelvis Back: no CVA tenderness Cervical Spine: cervical ROM normal and No Cervical spine tenderness Thoracic/Lumbar Spine: thoraco-lumbar ROM normal, No pain with thoraco-lumbar ROM, No thoracic spinal tenderness and No lumbar spinal tenderness Extrem General: Yes normal to inspection, No edema and No calf tenderness Skin General: warm and dry. Normal skin color. Normal skin turgor Neuro General: patient oriented x3, gait normal and no focal neuro deficit Cranial nerves: Yes Equal, round and reactive pupils present Cognition (Neuro): normal cognition Gait exam (Neuro): Normal gait present Sensory Exam: No Sensory deficit (Neuro) Psych Appearance: grossly normal Affect: normal affect Attitude: cooperative Thought process: Normal thought process present Coding Level of Care Code Est Pt Level 3 (12681) Diagnoses Primary hypertension I10 Hypertension type: primary hypertension Hypertriglyceridemia E78.1 Assessment & Plan Assessment & Plan (1) Hypertension: Code(s): I10 - Essential (primary) hypertension Category: Medical Qualifiers: Hypertension type: primary hypertension Qualified Code(s): I10 - Essential (primary) hypertension Plan: Blood pressure is 132/78, within goal of less than 140/90. Continue current treatment regimen. Low-sodium diet encouraged. Continue follow-up with weight management as planned. Return in 3 months or sooner with symptoms or concerns. Verbalized understanding and agreed with treatment plan. (2) Hypertriglyceridemia: Code(s): E78.1 - Pure hyperglyceridemia Category: Medical Plan: He forgot to get lipid panel lab work done for this visit as planned. He will get fasting blood work done as soon as possible. CMP was last checked in 2022. Will recheck this as well. Will review results and make changes as needed. Verbalized understanding and agreed with the plan. Orders: Orders Comprehensive [place]. Panel Fast Today E78.1 - Pure hyperglyceridemia, I10 - Essential (primary) hypertension
[2024-12-17 16:13] VITALS: BP 132/78; PULSE 80; RESP 16; TEMP 36.3; O2SAT 96; BMI 56.4
== END 2024-12-17 16:31 | disposition home or self-care (01) ==
PROVIDERS: PCP Nurse Practitioner Family; Visit Provider Nurse Practitioner Family
DX: I10 Essential (primary) hypertension (principal); E78.1 Pure hyperglyceridemia

== ENCOUNTER → 2024-12-17 16:04 | Outpatient (BNVA) | payer BC, SELFPAY | PROVIDERS: PCP Nurse Practitioner Family; Visit Provider Nurse Practitioner Family ==

== ENCOUNTER 2025-03-15 07:40 | Outpatient (REF) | payer BC, SELFPAY ==
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
--- OUTSIDE RECORDS SUMMARY | 2025-03-15 07:43 | XMS_ITS | Clinical Summary ---
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 Operator Name Role Phone Unavailable Primary Care Provider Unavailabl e Social History Tobacco Use Types Packs/Day Years Used Date Smoking Tobacco: Never Assessed Sex and Gender Information Value Date Recorded Sex Assigned at Not on file Legal Sex Male 6:41 PM EDT Gender Identity Not on file Sexual Orientation Not on file Plan of Treatment Health Maintenance Due Date Last Done Comments DTaP,Tdap,and Td Vaccines (1 - Tdap) 2006 Hepatitis B Vaccines (1 of 3 - 19+ 3-dose series) 2006 COVID-19 Vaccine ( - 2023-2 5 season) 2024 Influenza Vaccine (Season Ended) 2025 HIB Vaccines Aged Out No longer eligi ble based on patient's age to complete this topic HPV Vaccines Aged Out No longer eligi ble based on patient's age to complete this topic Hepatitis A Vaccines Aged Out No long er eligible based on patient's age to complete this topic IPV Vaccines Aged Out No longer eligi ble based on patient's age to complete this topic MMR Vaccines Aged Out No longer eligi ble based on patient's age to complete this topic Meningococcal ACWY Vaccine Aged Out N o longer eligible based on patient's age to complete this topic Meningococcal B Vaccine Aged Out No l onger eligible based on patient's age to complete this topic Pneumococcal Vaccine: Pediat rics (0 to 5 Years) and At-Risk Patients (6 to 64 Years) Aged Out No longer eligible b ased on patient's age to complete this topic RSV Immunization Patients Un grzegorz 20 months Aged Out No longer eligible b ased on patient's age to complete this topic Varicella Vaccines Aged Out No longer eligible based on patient's age to complete this topic
--- OUTSIDE RECORDS SUMMARY | 2025-03-15 07:44 | XMS_ITS | Data Portability ---
Author Organization [facility] [employer], [id number] [facility]* Address [address] [facility] [address] [place] [id number] Assessment No assessment recorded. Plan of Treatment Reminders Order Date Submit Date Provider Last Modified By Organization Details Last Modified Time Details Appointments None recorded. Lab vitamin D, 25-hydrox y, total, serum 2017 018 [email or web address] [facility] ([place]), [address] [place], [address], 8 08:51:47 testoster one, free + total, serum 2017 018 HANH [facility] ([place]), [address] [place], [address], 8 08:51:41 lipid panel, serum 2017 018 [email or web address] [address] [place], [address], 8 08:51:39 HbA1c (hemoglob in A1c), blood 2017 018 HANH [facility] ([place]), [address] [place], [address], 8 08:51:43 TSH, ultra-sen sitive, serum 2017 018 HANH [facility] ([place]), [address] [place], [address], 8 08:51:45 CMP, serum or plasma 2017 018 HANH [facility] ([place]), [address] [place], [address], 8 08:51:35 urinalysi s, complete 2017 018 HANH [facility] ([place]), [address] [place], [address], 8 08:51:37 testoster one, free + total, serum 2016 017 HANH [facility] ([place]), [address] [place], [address], 7 16:43:42 lipid panel, serum 2016 017 HANH [facility] ([place]), [address] [place], [address], 7 16:43:40 CMP, serum or plasma 2016 017 HANH [facility] ([place]), [address] [place], [address], 7 16:43:38 urinalysi s, complete 2016 017 HANH [facility] ([place]), [address] [place], [address], 7 16:43:39 testoster one, free + total, serum 2015 016 [email or web address] [facility] ([place]), [address] [place], [address], 6 11:35:04 lipid panel, serum 2015 016 [email or web address] [facility] ([place]), [address] [place], [address], 6 08:36:50 CMP, serum or plasma 2015 016 [email or web address] [facility] ([facility], [address] [place], [address], 6 11:35:04 TSH, serum or plasma 2015 016 [email or web address] [facility] ([place]), [address] [place], [address], 6 08:36:51 Referral None recorded. Procedures None recorded. Surgeries None recorded. Imaging None recorded. Medication Orders Levaquin 500 mg tablet 2018 019 [facility] [address] [facility] [address], 0 15:10:53 prednison e 20 mg tablet 2018 019 [facility] [address] [facility] [address], 9 14:31:29 losartan 100 mg tablet 2017 018 [facility], [address] [facility] , [address], 8 16:50:42 cephalexi n 500 mg capsule 2016 017 [email or web address] [facility], [address] [place], [place], , 8 16:11:42 losartan 100 mg tablet 2016 017 [facility], [address] [place], [place], , 7 15:57:18 AndroGel 20.25 mg/1.25 gram per pump act. (1.62 %) transderm al gel 2016 017 [email or web address] [facility], [address] [place], [place], , 8 16:11:20 losartan 50 mg tablet 2016 017 [facility], [address] [place], [place], , 7 15:55:08 amoxicill in 500 mg-potass ium clavulana te 125 mg tablet 2015 016 [email or web address] [facility], [address] [place], [place], , 7 13:15:01 losartan 50 mg tablet 2015 016 [facility], [address] [place], [place], , 7 15:55:08 Patient TargetsNo targets recorded. Patient Instructions Encounter Date Encounter Id Patient Instructions Last Modified By Organization Details Last Modified Time 03/18/2016 [id number] high blood pressure: care instructions HANH Not available 10/10/2016 05:05:35 learning about high blood pressure HANH Not available 10/10/2016 05:06:42 03/07/2017 [id number] learning about autism spectrum disorder (ASD) HANH Not available 04/10/2017 05:02:12 high cholesterol : care instructions HANH Not available 04/10/2017 05:02:17 high blood pressure: care instructions HANH Not available 04/10/2017 05:02:15 learning about high blood pressure HANH Not available 04/10/2017 05:02:23 obsessive-compul s vargas disorder: care instructions HANH Not available 04/10/2017 05:02:21 08/11/2017 [id number] learning about mood disorders HANH Not available 09/11/2017 05:05:59 high blood pressure: care instructions HANH Not available 09/11/2017 05:05:49 learning about high blood pressure HANH Not available 09/11/2017 05:06:24 06/22/2018 [id number] learning about mood disorders adolcich Not available 06/22/2018 16:50:40 high cholesterol : care instructions adolcich Not available 06/22/2018 16:50:40 05/22/2019 [id number] headache: care instructions adolcich Not available 05/22/2019 14:31:27 cough: care instructions adolcich Not available 05/22/2019 14:31:27 Acute Sinusitis: Care Instructions adolcich Not available 05/22/2019 14:31:27 bronchitis: care instructions adolcich Not available 05/22/2019 14:31:27 Reason for Referral None Reported. Results Created Date Observation Date Name Description Value Unit Range Abnormal Flag Note LastModifiedBy Organization Detail LastModifiedTime 03/07/20 17 03/08/2017 CMP, serum or plasm a glucose, serum 80 mg/dL 65-99 Not Available [facility] ([facility]) [address] [place], [address], 03/08/2017 16:43:38 03/07/20 17 03/08/2017 CMP, serum or plasm a BUN 15 mg/dL 6-20 Not Available [facility] ([facility] [address] [place], [address], 03/08/2017 16:43:38 03/07/20 17 03/08/2017 CMP, serum or plasm a creatinine, serum 0.97 mg/dL 0.76-1 .27 Not Available [facility] ([facility]) [address] [place], [address], 03/08/2017 16:43:38 03/07/20 17 03/08/2017 CMP, serum or plasm a eGFR if nonafricn AM 104 mL/mi n/1.7 3 >59 Not Available [facility] ([facility] [address] [place], [address], 03/08/2017 16:43:38 03/07/20 17 03/08/2017 CMP, serum or plasm a eGFR if africn AM 121 mL/mi n/1.7 3 >59 Not Available [facility] ([facility]) [address] [place], [address], 03/08/2017 16:43:38 03/07/20 17 03/08/2017 CMP, serum or plasm a BUN/creatini ne ratio 15 9-20 Not Available [facility] ([facility]) [address] [place], [address], 03/08/2017 16:43:38 03/07/20 17 03/08/2017 CMP, serum or plasm a sodium, serum 141 mmol/ L 134-14 4 Not Available [facility] ([facility]) [address] [place], [address], 03/08/2017 16:43:38 03/07/20 17 03/08/2017 CMP, serum or plasm a potassium, serum 4.6 mmol/ L 3.5-5. 2 Not Available [facility] ([facility]) [address] [place], [address], 03/08/2017 16:43:38 03/07/20 17 03/08/2017 CMP, serum or plasm a chloride, serum 99 mmol/ L 96-106 Not Available [facility] ([facility]) [address] [place], [address], 03/08/2017 16:43:38 03/07/20 17 03/08/2017 CMP, serum or plasm a carbon dioxide, total 21 mmol/ L 18-29 Not Available [facility] ([facility]) [address] [place], [address], 03/08/2017 16:43:38 03/07/20 17 03/08/2017 CMP, serum or plasm a calcium, serum 10.2 mg/dL 8.7-10 .2 Not Available [facility] ([facility]) [address] [place], [address], 03/08/2017 16:43:38 03/07/20 17 03/08/2017 CMP, serum or plasm a protein, total, serum 7.5 g/dL 6.0-8. 5 Not Available [facility] ([facility] [address] [facility] [place], [address], 03/08/2017 16:43:38 03/07/20 17 03/08/2017 CMP, serum or plasm a albumin, serum 4.8 g/dL 3.5-5. 5 Not Available [facility] ([facility]) [address] [place], [address], 03/08/2017 16:43:38 03/07/20 17 03/08/2017 CMP, serum or plasm a globulin, total 2.7 g/dL 1.5-4. 5 Not Available [facility] ([facility]) [address] [facility] [place], [address], 03/08/2017 16:43:38 03/07/20 17 03/08/2017 CMP, serum or plasm a A/G ratio 1.8 1.2-2. 2 Not Available [facility] ([facility]) [address] [facility] [place], [address], 03/08/2017 16:43:38 03/07/20 17 03/08/2017 CMP, serum or plasm a bilirubin, total 1.4 mg/dL 0.0-1. 2 above high normal Not Available [facility] ([facility]) [address] [facility] [place], [address], 03/08/2017 16:43:38 03/07/20 17 03/08/2017 CMP, serum or plasm a alkaline phosphatase, S 96 IU/L 39-117 Not Available [facility] ([facility]) [address] [facility] [place], [address], 03/08/2017 16:43:38 03/07/20 17 03/08/2017 CMP, serum or plasm a AST (SGOT) 40 IU/L 0-40 Not Available [facility] ([facility]) [address] [facility] [place], [address], 03/08/2017 16:43:38 03/07/20 17 03/08/2017 CMP, serum or plasm a ALT (SGPT) 92 IU/L 0-44 above high normal Not Available [facility] ([facility]) [address] [place], [address], 03/08/2017 16:43:38 03/07/20 17 03/08/2017 urina lysis , compl ete specific gravity 1.028 1.005- 1.030 Not Available [facility] ([facility]) [address] [facility] [place], [address], 03/08/2017 16:43:39 03/07/20 17 03/08/2017 urina lysis , compl ete pH 6.0 5.0-7. 5 Not Available [facility] ([facility]) [address] [facility], [place], [address], 03/08/2017 16:43:39 03/07/20 17 03/08/2017 urina lysis , compl ete urine-color YELLOW yellow Not Available [facility] ([facility]) [address] [facility], [place], [address], 03/08/2017 16:43:39 03/07/20 17 03/08/2017 urina lysis , compl ete appearance CLEAR clear Not Available [facility] ([facility]) [address] [facility], [place], [address], 03/08/2017 16:43:39 03/07/20 17 03/08/2017 urina lysis , compl ete WBC esterase NEGATI VE negati ve Not Available [facility] ([facility]) [address] [facility] [place], [address], 03/08/2017 16:43:39 03/07/20 17 03/08/2017 urina lysis , compl ete protein TRACE negati ve/tra ce Not Available [facility] ([facility]) [address] [facility] [place], [address], 03/08/2017 16:43:39 03/07/20 17 03/08/2017 urina lysis , compl ete glucose NEGATI VE negati ve Not Available [facility] ([facility]) [address] [place], [address], 03/08/2017 16:43:39 03/07/20 17 03/08/2017 urina lysis , compl ete ketones 1+ negati ve abnormal Not Available [facility] ([facility]) [address] [place], [address], 03/08/2017 16:43:39 03/07/20 17 03/08/2017 urina lysis , compl ete occult blood NEGATI VE negati ve Not Available [facility] ([facility]) [address] [place], [address], 03/08/2017 16:43:39 03/07/20 17 03/08/2017 urina lysis , compl ete bilirubin NEGATI VE negati ve Not Available [facility] ([facility]) [address] [place], [address], 03/08/2017 16:43:39 03/07/20 17 03/08/2017 urina lysis , compl ete urobilinogen ,semi-qn 0.2 mg/dL 0.2-1. 0 Not Available [facility] ([facility]) [address] [place], [address], 03/08/2017 16:43:39 03/07/20 17 03/08/2017 urina lysis , compl ete nitrite, urine NEGATI VE negati ve Not Available [facility] ([facility]) [address] [place] [address], [address], 03/08/2017 16:43:39 03/07/20 17 03/08/2017 urina lysis , compl ete microscopic examination COMMEN T MICRO SCOPI C NOT INDIC ATED AND NOT PERFO RMED. Not Available [facility] ([facility]) [address] [place], [address], 03/08/2017 16:43:39 03/07/20 17 03/08/2017 lipid panel , serum cholesterol, total 206 mg/dL 100-19 9 above high normal Not Available [facility] ([facility]) [address] [place], [address], 03/08/2017 16:43:40 03/07/20 17 03/08/2017 lipid panel , serum triglyceride s 159 mg/dL 0-149 above high normal Not Available [facility] ([facility]) [address] [place], [address], 03/08/2017 16:43:40 03/07/20 17 03/08/2017 lipid panel , serum HDL cholesterol 49 mg/dL >39 Not Available [facility] ([facility]) [address] [place], [address], 03/08/2017 16:43:40 03/07/20 17 03/08/2017 lipid panel , serum VLDL cholesterol enrique 32 mg/dL 5-40 Not Available [facility] ([facility]) [address] [place], [address], 03/08/2017 16:43:40 03/07/20 17 03/08/2017 lipid panel , serum LDL cholesterol calc 125 mg/dL 0-99 above high normal Not Available [facility] ([facility]) [address] [place], [address], 03/08/2017 16:43:40 03/07/20 17 03/08/2017 lipid panel , serum comment: NEGOTIATOR SALES Not Available [facility] ([facility]) [address] [place], [address], 03/08/2017 16:43:40 03/07/20 17 03/08/2017 testo stero ne, free + total , serum testosterone , serum 232 NG/dL 348-11 97 below low normal Not Available [facility] ([facility]) [address] [place], [address], 03/08/2017 16:43:42 03/07/20 17 03/08/2017 testo stero ne, free + total , serum comment: COMMEN T ADULT MALE REFER AVERY CERVANTES IS BASED ON A POPUL ATION OF LEAN MALES UP TO 40 YEARS OLD. Not Available [facility] ([facility]) [address] [place], [address], 03/08/2017 16:43:42 03/07/20 17 03/08/2017 testo stero ne, free + total , serum free testosterone (direct) 14.4 pg/mL 8.7-25 .1 Not Available [facility] ([facility]) [address] [place], [address], 03/08/2017 16:43:42 06/22/20 18 06/23/2018 CMP, serum or plasm a glucose 109 mg/dL 65-99 above high normal Not Available [facility] ([facility]) [address] [place], [address], 06/24/2018 08:51:35 06/22/20 18 06/23/2018 CMP, serum or plasm a BUN 19 mg/dL 6-20 Not Available [facility] ([facility]) [address] [place], [address], 06/24/2018 08:51:35 06/22/20 18 06/23/2018 CMP, serum or plasm a creatinine 0.93 mg/dL 0.76-1 .27 Not Available [facility] ([facility]) [address] [place], [address], 06/24/2018 08:51:35 06/22/20 18 06/23/2018 CMP, serum or plasm a eGFR if nonafricn AM 109 mL/mi n/1.7 3 >59 Not Available [facility] ([facility]) [address] [place], [address], 06/24/2018 08:51:35 06/22/20 18 06/23/2018 CMP, serum or plasm a eGFR if africn AM 126 mL/mi n/1.7 3 >59 Not Available [facility] ([facility]) [address] [place], [address], 06/24/2018 08:51:35 06/22/20 18 06/23/2018 CMP, serum or plasm a BUN/creatini ne ratio 20 9-20 Not Available [facility] ([facility]) [address] [place], [address], 06/24/2018 08:51:35 06/22/20 18 06/23/2018 CMP, serum or plasm a sodium 140 mmol/ L 134-14 4 Not Available [facility] ([facility]) [address] [place], [address], 06/24/2018 08:51:35 06/22/20 18 06/23/2018 CMP, serum or plasm a potassium 4.3 mmol/ L 3.5-5. 2 Not Available [facility] ([facility]) [address] [place], [address], 06/24/2018 08:51:35 06/22/20 18 06/23/2018 CMP, serum or plasm a chloride 102 mmol/ L 96-106 Not Available [facility] ([facility]) [address] [place], [address], 06/24/2018 08:51:35 06/22/20 18 06/23/2018 CMP, serum or plasm a carbon dioxide, total 20 mmol/ L 20-29 Not Available [facility] ([facility]) [address] [place], [address], 06/24/2018 08:51:35 06/22/20 18 06/23/2018 CMP, serum or plasm a calcium 9.7 mg/dL 8.7-10 .2 Not Available [facility] ([facility]) [address] [place], [address], 06/24/2018 08:51:35 06/22/20 18 06/23/2018 CMP, serum or plasm a protein, total 7.0 g/dL 6.0-8. 5 Not Available [facility] ([facility]) [address] [place], [address], 06/24/2018 08:51:35 06/22/20 18 06/23/2018 CMP, serum or plasm a albumin 4.4 g/dL 3.5-5. 5 Not Available [facility] ([facility]) [address] [facility] [place], [address], 06/24/2018 08:51:35 06/22/20 18 06/23/2018 CMP, serum or plasm a globulin, total 2.6 g/dL 1.5-4. 5 Not Available [facility] ([facility]) [address] [facility] [place], [address], 06/24/2018 08:51:35 06/22/20 18 06/23/2018 CMP, serum or plasm a A/G ratio 1.7 1.2-2. 2 Not Available [facility] ([facility]) [address] [facility] [place], [address], 06/24/2018 08:51:35 06/22/20 18 06/23/2018 CMP, serum or plasm a bilirubin, total 0.6 mg/dL 0.0-1. 2 Not Available [facility] ([facility]) [address] [facility] [place], [address], 06/24/2018 08:51:35 06/22/2006/23/2018 CMP, serum or plasm a alkaline phosphatase 90 IU/L 39-117 Not Available [facility] ([facility]) [address] [place], [address], 06/24/2018 08:51:35 06/22/20 18 06/23/2018 CMP, serum or plasm a AST (SGOT) 27 IU/L 0-40 Not Available [facility] ([facility]) [address] [facility] [place], [address], 06/24/2018 08:51:35 06/22/20 18 06/23/2018 CMP, serum or plasm a ALT (SGPT) 79 IU/L 0-44 above high normal Not Available [facility] ([facility]) [address] [facility] [place], [address], 06/24/2018 08:51:35 06/22/20 18 06/23/2018 urina lysis , compl ete specific gravity >=1.03 0 1.005- 1.030 abnormal Not Available [facility] ([facility]) [address] [facility] [place], [address], 06/24/2018 08:51:37 06/22/20 18 06/23/2018 urina lysis , compl ete pH 5.0 5.0-7. 5 Not Available [facility] ([facility]) [address] [place], [address], 06/24/2018 08:51:37 06/22/2006/23/2018 urina lysis , compl ete urine-color Yellow yellow Not Available [facility] ([facility]) [address] [place], [address], 06/24/2018 08:51:37 06/22/20 18 06/23/2018 urina lysis , compl ete appearance Clear clear Not Available [facility] ([facility]) [address] [place], [address], 06/24/2018 08:51:37 06/22/2006/23/2018 urina lysis , compl ete WBC esterase Negati ve negati ve Not Available [facility] ([facility]) [address] [place], [address], 06/24/2018 08:51:37 06/22/20 18 06/23/2018 urina lysis , compl ete protein Trace negati ve/tra ce Not Available [facility] ([facility]) [address] [place], [address], 06/24/2018 08:51:37 06/22/20 18 06/23/2018 urina lysis , compl ete glucose Negati ve negati ve Not Available [facility] ([facility]) [address] [place], [address], 06/24/2018 08:51:37 06/22/20 18 06/23/2018 urina lysis , compl ete ketones Negati ve negati ve Not Available [facility] ([facility]) [address] [place], [address], 06/24/2018 08:51:37 06/22/20 18 06/23/2018 urina lysis , compl ete occult blood 3+ negati ve abnormal Not Available [facility] ([facility]) [address] [place], [address], 06/24/2018 08:51:37 06/22/20 18 06/23/2018 urina lysis , compl ete bilirubin Negati ve negati ve Not Available [facility] ([facility]) [address] [place], [address], 06/24/2018 08:51:37 06/22/20 18 06/23/2018 urina lysis , compl ete urobilinogen ,semi-qn 0.2 mg/dL 0.2-1. 0 Not Available [facility] ([facility]) [address] [place], [address], 06/24/2018 08:51:37 06/22/20 18 06/23/2018 urina lysis , compl ete nitrite, urine Negati ve negati ve Not Available [facility] ([facility]) [address] [place], [address], 06/24/2018 08:51:37 06/22/20 18 06/23/2018 urina lysis , compl ete microscopic examination See below: Micro scopi c was indic ated and was perfo rmed. Not Available [facility] ([facility]) [address] [facility], [place], [address], 06/24/2018 08:51:37 06/22/20 18 06/23/2018 urina lysis , compl ete WBC 0-5 /hpf 0 - 5 Not Available [facility] ([facility]) [address] [facility], [place], [address], 06/24/2018 08:51:37 06/22/20 18 06/23/2018 urina lysis , compl ete RBC >30 /hpf 0 - 2 abnormal Not Available [facility] ([facility]) [address] [facility], [place], [address], 06/24/2018 08:51:37 06/22/20 18 06/23/2018 urina lysis , compl ete epithelial cells (non renal) 0-10 /hpf 0 - 10 Not Available [facility] ([facility]) [address] [facility], [place], [address], 06/24/2018 08:51:37 06/22/20 18 06/23/2018 urina lysis , compl ete epithelial cells (renal) NEGOTIATOR SALES Not Available [facility] ([facility]) [address] [facility], [place], [address], 06/24/2018 08:51:37 06/22/20 18 06/23/2018 urina lysis , compl ete casts None seen /lpf none seen Not Available [facility] ([facility]) [address] [place], [address], 06/24/2018 08:51:37 06/22/20 18 06/23/2018 urina lysis , compl ete cast type [employer] SALES Not Available [facility] ([facility]) [address] [place], [address], 06/24/2018 08:51:37 06/22/20 18 06/23/2018 urina lysis , compl ete crystals [employer] SAL[employer] Not Available [facility] ([facility]) [address] [place], [address], 06/24/2018 08:51:37 06/22/20 18 06/23/2018 urina lysis , compl ete crystal type NEG[employer]ATOR SALES Not Available [facility] ([facility]) [address] [facility], [place], [address], 06/24/2018 08:51:37 06/22/20 18 06/23/2018 urina lysis , compl ete mucus threads Presen t not estab. Not Available [facility] ([facility]) [address] [facility], [place], [address], 06/24/2018 08:51:37 06/22/20 18 06/23/2018 urina lysis , compl ete bacteria Few none seen/f ew Not Available [facility] ([facility]) [address] [facility], [place], [address], 06/24/2018 08:51:37 06/22/20 18 06/23/2018 urina lysis , compl ete yeast [employer] SALES Not Available [facility] ([facility]) [address] [facility] [place], [address], 06/24/2018 08:51:37 06/22/20 18 06/23/2018 urina lysis , compl ete trichomonas [employer] SAL[employer] Not Available [facility] ([facility]) [address] [facility], [place], [address], 06/24/2018 08:51:37 06/22/20 18 06/23/2018 urina lysis , compl ete comment [employer]ATOR SALES Not Available [facility] ([facility]) [address] [facility] [place], [address], 06/24/2018 08:51:37 06/22/20 18 06/23/2018 lipid panel , serum cholesterol, total 200 mg/dL 100-19 9 above high normal Not Available [facility] ([facility]) [address] [place], [address], 06/24/2018 08:51:39 06/22/20 18 06/23/2018 lipid panel , serum triglyceride s 229 mg/dL 0-149 above high normal Not Available [facility] ([facility]) [address] [place], [address], 06/24/2018 08:51:39 06/22/20 18 06/23/2018 lipid panel , serum HDL cholesterol 46 mg/dL >39 Not Available [facility] ([facility]) [address] [place], [address], 06/24/2018 08:51:39 06/22/20 18 06/23/2018 lipid panel , serum VLDL cholesterol enrique 46 mg/dL 5-40 above high normal Not Available [facility] ([facility]) [address] [place], [address], 06/24/2018 08:51:39 06/22/20 18 06/23/2018 lipid panel , serum LDL cholesterol calc 108 mg/dL 0-99 above high normal Not Available [facility] ([facility]) [address] [place], [address], 06/24/2018 08:51:39 06/22/20 18 06/23/2018 lipid panel , serum comment: NEGOTIATOR SALES Not Available [facility] ([facility]) [address] [place], [address], 06/24/2018 08:51:39 06/22/20 18 06/23/2018 testo stero ne, free + total , serum testosterone , serum 208 NG/dL 264-91 6 below low normal Adult male refer ence inter jovi is based on a popul ation of healt hy nonob arian males (BMI <30) betwe en 19 and 39 years old. Ulices horn et.al . JCEM 2017, 102;1 161-1 173. PMID: 09097 103. Not Available [facility] [facility]) [address] [facility], [place], [address], 06/24/2018 08:51:41 06/22/20 18 06/24/2018 testo stero ne, free + total , serum free testosterone (direct) 7.0 pg/mL 8.7-25 .1 below low normal Not Available [facility] ([facility]) [address] [place], [address], 06/24/2018 08:51:41 06/22/20 18 06/23/2018 HbA1c (hemo globi n A1c), blood hemoglobin A1C 5.5 % 4.8-5. 6 Predi abete s: 5.7 - 6.4 Diabe negro: >6.4 Glyce sonali contr ol for adult s with diabe negro: <7.0 Not Available [facility] ([facility]) [address] [place], [address], 06/24/2018 08:51:43 06/22/20 18 06/23/2018 TSH, ultra -sens itive , serum TSH 1.580 uIU/m L 0.450- 4.500 Not Available [facility] ([facility]) [address] [place], [address], 06/24/2018 08:51:45 06/22/20 18 06/23/2018 vitam in D, 25-hy droxy , total , serum vitamin D, 25-hydroxy 16.3 NG/mL 30.0-1 00.0 below low normal Vitam in D defic iency has been defin ed by the Insti tute of Medic ine and an Endoc rine Socie ty pract ice guide line as a level of serum 25-OH vitam in D less than 20 ng/mL (1,2) . The Endoc rine Socie ty went on to furth er defin e vitam in D insuf ficie ncy as a level betwe en 21 and 29 ng/mL (2). 1. IOM (Inst itute of Medic ine). 2010. Dieta ry refer ence intak es for calci um and D. Bonnie lopez [place]: The [facility] . 2. Sowmya vogt MF, Sarah starks [place], Arina off-F ary i CALL, et al. Evalu ation , treat ment, and preve ntion of vitam in D defic iency : an Endoc rine Socie ty clini enrique pract ice guide line. JCEM. 2010; 96(7) :1911 -30. Not Available [facility] ([facility]) [address] [facility], [place], [address], 06/24/2018 08:51:47 Result Notes None recorded. Problems Name Problem SNOMED Code Status Onset Date Resolution Date Notes Provider Name and Address Organization Details Recorded Time Elevated level of transami nase and lactic acid dehydrog enase 510139290 Active 2012 MD [address], [place], [address] , [facility] 6 17:36:09 Allergic rhinitis 12017696 Active 2006 MD [address], [place], [address] , [facility] 6 17:36:08 Noninfec tious gastroen teritis 02768868 Completed 200607/21/2015 TYPE: CHRONIC; IDENTIFI ED BY: GLORIA RAM; LAST EDITED: 13 APR 2014 1:24PM; STATUS: ACTIVE; LAST REVIEWED DATE: 20140413 ; PROBLEM CATEGORY : SUPPRESS ED Jb Cornelius MD [address], [place], [address] , [facility] 6 17:36:08 Pain in thoracic spine [id number] Completed 201007/21/2015 LAST ASSESSED : 12 MAR 2011 1:58PM; TYPE: CHRONIC; IDENTIFI ED BY: ISRAEL HASSAN; LAST EDITED: 13 APR 2014 1:25PM; STATUS: RESOLVED ; LAST REVIEWED DATE: 20140413 ; PROBLEM CATEGORY : SUPPRESS ED MD [address], [place], [address] , [facility] 6 17:36:08 Acute bronchit is [id number] Completed 201107/21/2015 LAST ASSESSED : 15 MAR 2013 12:01PM; TYPE: ACUTE; IDENTIFI ED BY: ALISHA CORNELIUS; LAST EDITED: 13 APR 2014 1:25PM; STATUS: RESOLVED ; LAST REVIEWED DATE: 20140413 ; PROBLEM CATEGORY : SUPPRESS ED MD [address], [place], [address] , [facility] 7 14:06:09 Cough [id number] Completed 200707/21/2015 TYPE: CHRONIC; IDENTIFI ED BY: ISRAEL HASSAN .; LAST EDITED: 13 APR 2014 1:24PM; STATUS: ASSUMED RESOLVED ; LAST REVIEWED DATE: 20140413 ; PROBLEM CATEGORY : SUPPRESS ED Fly resendiz, [facility] 7 13:15:36 Spasm [id number] Completed 201007/21/2015 LAST ASSESSED : 12 MAR 2011 1:58PM; TYPE: CHRONIC; IDENTIFI ED BY: ISRAEL HASSAN; LAST EDITED: 13 APR 2014 1:25PM; STATUS: RESOLVED ; LAST REVIEWED DATE: 20140413 ; PROBLEM CATEGORY : SUPPRESS ED MD [address], [place], [address] , [facility] 6 17:36:08 Testicul ar hypofunc tion [id number] [facility] 13:15:25 Hyperlip idemia 04859474 Active 2012 MD [address], [place], [address] , [facility] 6 17:36:08 Acute bronchit is 40258557 Completed 201403/07/2017 MD [address], [place], [address] , [facility] 7 14:06:09 Pain in limb 91777107 Completed 200507/21/2015 TYPE: CHRONIC; PROBLEM DESCRIPT ION: POSSIBLE FRACTURE ; IDENTIFI ED BY: LELE SAUCEDO; LAST EDITED: 13 APR 2014 1:24PM; STATUS: ACTIVE; LAST REVIEWED DATE: 20140413 ; PROBLEM CATEGORY : SUPPRESS ED MD [address], [place], [address] , [facility] 6 17:36:08 Acute frontal sinusiti s 68999740 Completed 201303/07/[address], [place], [address] , [facility] 7 14:06:28 Acute sinusiti s 85944809 Completed 200807/21/2015 LAST ASSESSED : 06 OCT 2009 11:32AM; TYPE: ACUTE; IDENTIFI ED BY: GLORIA ALVARADO; LAST EDITED: 13 APR 2014 1:25PM; STATUS: RESOLVED ; LAST REVIEWED DATE: 20140413 ; PROBLEM CATEGORY : SUPPRESS ED MD [address], [place], [address] , [facility] 7 14:06:13 Malaise and fatigue 321862218 Completed 201107/21/2015 LAST ASSESSED : 15 NOV 2011 10:48AM; TYPE: CHRONIC; IDENTIFI ED BY: ALISHA CORNELIUS; LAST EDITED: 13 APR 2014 1:25PM; STATUS: RESOLVED ; LAST REVIEWED DATE: 20140413 ; PROBLEM CATEGORY : SUPPRESS ED Fly Ochoa resendiz, [facility] 7 13:15:31 Screenin julia for disorder Completed 200807/21/2015 TYPE: CHRONIC; IDENTIFI ED BY: ISRAEL HASSAN; LAST EDITED: 06 OCT 2009 11:21AM; STATUS: RESOLVED ; LAST REVIEWED DATE: 20091006 ; PROBLEM CATEGORY : SUPPRESS ED MD [address], [place], [address] , [facility] 6 17:36:09 Influenz a vaccine needed [id number] 06 Completed 201003/07/2017 [facility] 7 13:15:26 Influenz a vaccine needed [id number] 06 Completed 201007/21/2015 LAST ASSESSED : 04 SEP 2013 3:45PM; TYPE: CHRONIC; IDENTIFI ED BY: TESFAYE MOULTON; LAST EDITED: 13 APR 2014 1:25PM; STATUS: ACTIVE; LAST REVIEWED DATE: 20140413 ; PROBLEM CATEGORY : ACTIVE Fly resendiz, [facility] 7 13:15:26 Disorder of rotator cuff [id number] Completed 200707/21/2015 TYPE: CHRONIC; IDENTIFI ED BY: ALISHA CORNELIUS; LAST EDITED: 27 SEP 2008 1:48PM; STATUS: ACTIVE; LAST REVIEWED DATE: 20080927 ; PROBLEM CATEGORY : SUPPRESS ED Jb Cornelius MD [address], [place], [address] , [facility] 6 17:36:09 Pleurisy [id number] Completed 200707/21/2015 TYPE: CHRONIC; IDENTIFI ED BY: ALISHA CORNELIUS; LAST EDITED: 13 APR 2014 1:25PM; STATUS: ACTIVE; LAST REVIEWED DATE: 20140413 ; PROBLEM CATEGORY : SUPPRESS ED Jb Cornelius MD [address] [facility], [place], [address] , [facility] 6 17:36:08 Injury of chest wall 86972189 Completed 200707/21/2015 TYPE: CHRONIC; IDENTIFI ED BY: ALISHA CORNELIUS; LAST EDITED: 27 SEP 2008 1:48PM; STATUS: ACTIVE; LAST REVIEWED DATE: 20080927 ; PROBLEM CATEGORY : SUPPRESS ED Jb Cornelius MD [address] [place] [address], [address] , [facility] 6 17:36:09 Acute sinusiti s 09291091 Completed 201403/07/2017 MD [address], [place], [address] , [facility] 7 14:06:13 Acute upper respirat ory infectio n 75462561 Completed 201203/07/2017 MD [address], [place], [address] , [facility] 7 14:06:36 Bacteria l pneumoni a 31245049 Completed 200707/21/2015 TYPE: CHRONIC; IDENTIFI ED BY: ALISHA CORNELIUS; LAST EDITED: 13 APR 2014 1:24PM; STATUS: ACTIVE; LAST REVIEWED DATE: 20140413 ; PROBLEM CATEGORY : SUPPRESS ED MD [address], [place], [address] , [facility] 6 17:36:08 Benign essentia l hyperten tomás 6019208 Active 2012 MD [address], [place], [address] , [facility] 6 17:36:08 Cough [id number] Completed 201303/07/2017 Fly [facility] 7 13:15:36 Depressi ve disorder 24910147 Active 2004 MD [address], [place], [address] , [facility] 6 17:36:08 Acute upper respirat ory infectio n 21167224 Completed 201007/21/2015 LAST ASSESSED : 03 SEP 2011 10:56AM; TYPE: ACUTE; IDENTIFI ED BY: TESFAYE MOULTON; LAST EDITED: 13 APR 2014 1:25PM; STATUS: RESOLVED ; LAST REVIEWED DATE: 20140413 ; PROBLEM CATEGORY : SUPPRESS ED MD [address], [place], [address] , [facility] 7 14:06:36 Acute pharyngi tis 562085560 Completed 201007/21/2015 LAST ASSESSED : 03 SEP 2011 10:52AM; TYPE: ACUTE; IDENTIFI ED BY: GHANSHYAM HUSAIN; LAST EDITED: 13 APR 2014 1:25PM; STATUS: RESOLVED ; LAST REVIEWED DATE: 20140413 ; PROBLEM CATEGORY : SUPPRESS ED MD [address], [place], [address] , [facility] 6 17:36:08 Headache [id number] Completed 201107/21/2015 LAST ASSESSED : 01 MAR 2013 10:00AM; TYPE: CHRONIC; IDENTIFI ED BY: ALISHA CORNELIUS; LAST EDITED: 13 APR 2014 1:24PM; STATUS: RESOLVED ; LAST REVIEWED DATE: 20140413 ; PROBLEM CATEGORY : SUPPRESS ED MD [address], [place], [address] , [facility] 6 17:36:08 Infectio us diarrhea l disease 54623477 Completed 201107/21/2015 LAST ASSESSED : 15 SEP 2012 4:41PM; TYPE: CHRONIC; IDENTIFI ED BY: ALISHA CORNELIUS; LAST EDITED: 13 APR 2014 1:25PM; STATUS: RESOLVED ; LAST REVIEWED DATE: 20140413 ; PROBLEM CATEGORY : SUPPRESS ED MD [address], [place], [address] , [facility] 6 17:36:08 Dyspnea 275622987 Completed 201107/21/2015 LAST ASSESSED : 01 JUN 2013 2:20PM; TYPE: CHRONIC; IDENTIFI ED BY: ALISHA CORNELIUS; LAST EDITED: 13 APR 2014 1:25PM; STATUS: RESOLVED ; LAST REVIEWED DATE: 20140413 ; PROBLEM CATEGORY : SUPPRESS ED MD [address], [place], [address] , [facility] 7 14:06:16 Chest pain [id number] Completed 200707/21/2015 TYPE: CHRONIC; IDENTIFI ED BY: ALISHA CORNELIUS; LAST EDITED: 13 APR 2014 1:25PM; STATUS: ACTIVE; LAST REVIEWED DATE: 20140413 ; PROBLEM CATEGORY : SUPPRESS ED Jb Cornelius MD [address], [place], [address] , [facility] 6 17:36:09 Obstruct vargas sleep apnea syndrome 28990301 Active 2009 Jb Cornelius MD [address], [place], [address] , [facility] 6 17:36:08 Jorge de la Tourette 's syndrome 3881007 Active 2004 Jb Cornelius MD [address], [place], [address] , [facility] 6 17:36:08 Attentio n deficit hyperact ivity disorder 161670095 Active 2004 Jb Cornelius MD [address], [place], [address] , [facility] 6 17:36:08 Adult health examinat ion Active 2012 Jb Cornelius MD [address], [place], [address] , [facility] 6 17:36:09 Neck pain [id number] Completed 201007/22/2015 LAST ASSESSED : 12 MAR 2011 1:58PM; TYPE: CHRONIC; IDENTIFI ED BY: ISRAEL HASSAN; LAST EDITED: 13 APR 2014 1:25PM; STATUS: RESOLVED ; LAST REVIEWED DATE: 20140413 ; PROBLEM CATEGORY : SUPPRESS ED Jb Cornelius MD [address], [place], [address] , [facility] 6 17:36:08 Common cold [id number] Completed 200607/22/2015 TYPE: CHRONIC; IDENTIFI ED BY: ISRAEL HASSAN .; LAST EDITED: 13 APR 2014 1:24PM; STATUS: ASSUMED RESOLVED ; LAST REVIEWED DATE: 20140413 ; PROBLEM CATEGORY : SUPPRESS ED MD [address], [place], [address] [address] , [facility] 6 17:36:08 Insomnia 423879789 Active [address], [place], [address] [place] [address] , [facility] 6 17:36:08 Vitamin D deficien cy 15546538 Active [address], [place], [address] [place] [address] , [facility] 6 17:36:08 Elevated blood-pr essure reading without diagnosi s of hyperten tomás 476702110 Completed 201403/07/[address], [place], [address] [place] [address] , [facility] 7 14:09:24 Pain in limb 61775954 Completed 200511/13/[address], [place], [address] [place] [address] , [facility] 6 17:36:08 Contusio n of toe [id number] Completed 201403/07/[address], [place], [address] , [facility] 7 14:06:24 Influenz a vaccine needed [id number] 06 Completed 201011/13/2015 Fly [facility] 7 13:15:26 Disorder of rotator cuff 438691422 Completed 200711/13/[address], [place], [address] [place] [address] , [facility] 6 17:36:09 Pleurisy 039482478 Completed 200711/13/2015 Jb Cornelius MD [address], [place], [address] , [facility] 6 17:36:08 Injury of chest wall 91449249 Completed 200711/13/2015 Jb Cornelius MD [address], [place], [address] , [facility] 6 17:36:09 Bacteria l pneumoni a 75000122 Completed 200711/13/2015 Jb Cornelius MD [address], [place], [address] , [facility] 6 17:36:08 Malaise and fatigue 833872041 Completed 200611/13/2015 Fly resendiz, [facility] 7 13:15:31 Malaise and fatigue 150723850 Completed 201403/07/2017 [facility] 7 13:15:31 Chest pain [id number] Completed 200711/13/2015 Jb Cornelius MD [address], [place], [address] , [facility] 6 17:36:09 Noninfec tious gastroen teritis 76923074 Completed 200611/13/[address], [place], [address] , [facility] 6 17:36:08 Abscess of abdomina l wall 91999044 Completed 03/07/2017 Jb Cornelius MD [address], [place], [address] , [facility] 7 14:06:31 Dyspnea 823038685 Completed 200903/07/2017 Jb Cornelius MD [address], [place], [address] , [facility] 7 14:06:16 Problem Notes None recorded. Medical Equipment None Reported. Allergies No known drug allergies Medications Name Sig Start Date Stop Date Status Note LastModified by Organization Details LastModified Time losartan 50 mg tablet TAKE 2 TABLETS BY MOUTH DAILY// 100MG IS OUT OF STOCK SO TAKE 2 50 MGS INSTEAD OF 1 100MG active Not Available Not Available No t Available cyclobenz aprine 10 mg tablet TAKE 1 TABLET 3 TIMES DAILY FOR NECK SPASM 02/14 completed TYPE: OTHER; DAYS TO TAKE 20; RX#: [id number] ; MANAGED BY: ALISHA CORNELIUS; ORDERED BY: ALISHA CORNELIUS; AUTHORIZ ATION: N; LAST UPDATED BY: ISRAEL HASSAN; DO NOT FILL BEFORE DATE: 14 FEB 2009; SENT TO: 0; STATUS: DISCONTI NUED; MEDICATI ON STATUS: DISCONTI NUED Not Available Not Available Not Available bupropion HCl SR 150 mg tablet,12 hr sustained -release TAKE 1 TABLET BY MOUTH EVERY DAY active Not Available Not Available No t Available Adderall 20 mg tablet 06/01 completed TYPE: OTHER; DAYS TO TAKE 0; AUTHORIZ ATION: N; LAST UPDATED BY: CHIP FORDE; SENT TO: 0; STATUS: RECORD D/C; MEDICATI ON STATUS: DISCONTI NUED Not Available Not Available Not Available venlafaxi ne ER 37.5 mg capsule,e xtended release 24 hr TAKE ONE CAPSULE BY MOUTH EVERY DAY AT BEDTIME active Not Available Not Available No t Available cefprozil 500 mg tablet TAKE 1 TABLET EVERY 12 HOURS DAILY. 05/03 completed TYPE: OTHER; DAYS TO TAKE 14; RX#: [id number] ; MANAGED BY: KHAI MENDOZA; ORDERED BY: KHAI MENDOZA; AUTHORIZ ATION: N; LAST UPDATED BY: TESFAYE MOULTON; DO NOT FILL BEFORE DATE: 03 MAY 2007; SENT TO: 0; STATUS: DISCONTI NUED; MEDICATI ON STATUS: DISCONTI NUED Not Available Not Available Not Available venlafaxi ne ER 75 mg capsule,e xtended release 24 hr TAKE ONE CAPSULE BY MOUTH EVERY MORNING active Not Available Not Available No t Available doxycycli ne hyclate 100 mg capsule active Not Available Not Available Not Available cefuroxim e axetil 250 mg tablet TAKE ONE TABLET BY MOUTH EVERY TWELVE HOURS 09/15 completed TYPE: OTHER; DAYS TO TAKE 0; RX#: [id number]; EXPECTED ACTION: EVALUATE ; MANAGED BY: ALISHA CORNELIUS; ORDERED BY: ALISHA CORNELIUS; AUTHORIZ ATION: N; LAST UPDATED BY: DEEPTHI MURRELL; DO NOT FILL BEFORE DATE: 24 AUG 2013; SENT TO: 0; STATUS: RECORD D/C; MEDICATI ON STATUS: DISCONTI NUED Not Available Not Available Not Available venlafaxi ne 75 mg tablet Take 1 tablet every day by oral route. active Not Available Not Available No t Available Adderall 15 mg tablet 09/15 completed TYPE: OTHER; DAYS TO TAKE 0; AUTHORIZ ATION: N; LAST UPDATED BY: DEEPTHI MURRELL; SENT TO: 0; STATUS: RECORD D/C; MEDICATI ON STATUS: DISCONTI NUED Not Available Not Available Not Available azithromy lyssa 250 mg tablet TAKE 2 TABLETS ON DAY 1 THEN TAKE 1 TABLET A DAY FOR 4 DAYS. 06/01 completed TYPE: OTHER; DAYS TO TAKE 5; RX#: [id number]; EXPECTED ACTION: EVALUATE ; EXPECTED ACTION DATE: 20 MAR 2013; MANAGED BY: ALISHA CORNELIUS; ORDERED BY: ALISHA CORNELIUS; AUTHORIZ ATION: N; LAST UPDATED BY: CHIP FORDE; DO NOT FILL BEFORE DATE: 15 MAR 2014; SENT TO: 0; STATUS: RECORD D/C; MEDICATI ON STATUS: DISCONTI NUED Not Available Not Available Not Available ibuprofen 800 mg tablet TAKE ONE TABLET BY MOUTH EVERY 8 HOURS NEEDED FOR PAIN 03/07 completed Not Available Not Available Not Available diclofena c ER 100 mg tablet,ex tended release 24 hr TAKE 1 TABLET EVERY 12 HOURS FOR MODERATE TO SEVERE PAIN 02/14 completed TYPE: OTHER; DAYS TO TAKE 30; RX#: [id number] ; MANAGED BY: ALISHA CORNELIUS; ORDERED BY: ALISHA CORNELIUS; AUTHORIZ ATION: N; LAST UPDATED BY: ISRAEL HASSAN; DO NOT FILL BEFORE DATE: 14 FEB 2009; SENT TO: 0; STATUS: DISCONTI NUED; MEDICATI ON STATUS: DISCONTI NUED Not Available Not Available Not Available clotrimaz ole-betam ethasone 1 %-0.05 % lotion APPLY TO THE AFFECTED AREA BY TOPICAL ROUTE TWICE A DAY IN THE MORNING AND EVENING active Not Available Not Available No t Available Levaquin 750 mg tablet TAKE ONE TABLET(S ) DAILY 09/27 completed TYPE: OTHER; DAYS TO TAKE 7; RX#: [id number] ; MANAGED BY: ALISHA CORNELIUS; ORDERED BY: ALISHA CORNELIUS; AUTHORIZ ATION: N; LAST UPDATED BY: ISRAEL HASSAN; SENT TO: 0; STATUS: DISCONTI NUED; MEDICATI ON STATUS: DISCONTI NUED Not Available Not Available Not Available prednison e 20 mg tablet Take 2 tablets every day by oral route. 2018 active Not Available Not Available Not Avai lable clonazepa m 0.5 mg tablet TAKE 1 TABLET BY MOUTH EVERY DAY NEEDED FOR PANIC ATTACKS AND NOT TO EXCEED 2 TABS IN 24 HOURS active Not Available Not Available No t Available acetamino phen 300 mg-codein e 30 mg tablet active Not Available Not Available Not Available bupropion HCl SR 100 mg tablet,12 hr sustained -release TAKE ONE TABLET BY MOUTH TWICE A DAY active Not Available Not Available No t Available Adderall XR 20 mg capsule,e xtended release TAKE 1 CAPSULE DAILY. 03/03 completed TYPE: OTHER; DAYS TO TAKE 0; AUTHORIZ ATION: N; LAST UPDATED BY: ISRAEL HASSAN; SENT TO: 0; STATUS: DISCONTI NUED; MEDICATI ON STATUS: DISCONTI NUED Not Available Not Available Not Available ketorolac 0.5 % eye drops INSTILL 1 DROP INTO AFFECTED EYE(S) 4 TIMES DAILY. 03/14 completed TYPE: OTHER; DAYS TO TAKE 0; RX#: [id number]; EXPECTED ACTION: EVALUATE ; MANAGED BY: ALISHA CORNELIUS; ORDERED BY: ALISHA CORNELIUS; AUTHORIZ ATION: N; LAST UPDATED BY: TANIA KELSEY; DO NOT FILL BEFORE DATE: 03 AUG 2014; SENT TO: 0; STATUS: RECORD D/C; MEDICATI ON STATUS: DISCONTI NUED Not Available Not Available Not Available oxycodone -acetamin ophen 5 mg-325 mg tablet TAKE 1 TABLET BY MOUTH EVERY 4 HOURS NEEDED FOR ACUTE PAIN active Not Available Not Available No t Available Luvox 50 mg tablet TAKE 1 TABLET AT BEDTIME. 03/03 completed TYPE: OTHER; DAYS TO TAKE 0; AUTHORIZ ATION: N; LAST UPDATED BY: EREN COSTA; SENT TO: 0; STATUS: DISCONTI NUED; MEDICATI ON STATUS: DISCONTI NUED Not Available Not Available Not Available tamsulosi n 0.4 mg capsule TAKE 1 CAPSULE BY MOUTH DAILY FOR 10 DAYS active Not Available Not Available No t Available dexametha sone 1 mg tablet TAKE ONE TABLET BY MOUTH DIRECTED active Not Available Not Available No t Available cephalexi n 500 mg capsule Take 1 capsule 3 times a day by oral route. 06/22 completed Not Available Not Available Not Available Fluticaso ne Propionat e (Nasal) 50 mcg/DOSE inhaler INSTILL 2 SPRAYS IN EACH NOSTRIL ONCE DAILY 08/12 completed TYPE: ACTIVE; DAYS TO TAKE 30; RX#: [id number]; EXPECTED ACTION: EVALUATE ; EXPECTED ACTION DATE: 29 JUL 2014; MANAGED BY: ALISHA CORNELIUS; ORDERED BY: ALISHA CORNELIUS; AUTHORIZ ATION: N; LAST UPDATED BY: MANISH LAM; DO NOT FILL BEFORE DATE: 03 AUG 2014; SENT TO: 0; STATUS: COMPLETE D; MEDICATI ON STATUS: COMPLETE Not Available Not Available Not Available promethaz ine 25 mg tablet TAKE 1 TABLET EVERY 8 HOURS FOR NAUSEA AND VOMITING 03/14 completed TYPE: OTHER; DAYS TO TAKE 7; RX#: [id number]; EXPECTED ACTION: EVALUATE ; EXPECTED ACTION DATE: 10 AUG 2013; MANAGED BY: ALISHA CORNELIUS; ORDERED BY: ALISHA CORNELIUS; AUTHORIZ ATION: N; LAST UPDATED BY: TANIA KELSEY; DO NOT FILL BEFORE DATE: 03 AUG 2014; SENT TO: 0; STATUS: RECORD D/C; MEDICATI ON STATUS: DISCONTI NUED Not Available Not Available Not Available Advair Diskus 250 mcg-50 mcg/dose powder for inhalatio n USE ONE PUFF(S) EVERY 12 HOURS 02/14 completed TYPE: OTHER; DAYS TO TAKE 30; RX#: [id number] ; MANAGED BY: ALISHA CORNELIUS; ORDERED BY: ALISHA CORNELIUS; AUTHORIZ ATION: N; LAST UPDATED BY: ISRAEL HASSAN; SENT TO: 0; STATUS: DISCONTI NUED; MEDICATI ON STATUS: DISCONTI NUED Not Available Not Available Not Available Risperdal 0.5 mg tablet 09/15 completed TYPE: OTHER; DAYS TO TAKE 0; AUTHORIZ ATION: N; LAST UPDATED BY: DEEPTHI MURRELL; SENT TO: 0; STATUS: RECORD D/C; MEDICATI ON STATUS: DISCONTI NUED Not Available Not Available Not Available ceftriaxo ne 500 mg solution for injection INJECT 2 ML ONCE 2013 active TYPE: ACTIVE; DAYS TO TAKE 0; MANAGED BY: ALISHA CORNELIUS; ORDERED BY: ALISHA CORNELIUS; AUTHORIZ ATION: N; LAST UPDATED BY: TANIA KELSEY; SENT TO: 0; ANNOTATI ONS: TANIA KELSEY [id number] 5:24PM CEFTRIAX ONE INJECTIO N 1ML ADMINIST ERED IM TO RIGHT GLUTEAL REGION WITHOUT COMPLICA TIONS.;; STATUS: ORDERED, ADMINIST ERED; MEDICATI ON STATUS: COMPLETE Not Available Not Available Not Available Levaquin 500 mg tablet Take 1 tablet every 24 hours by oral route. 12/18 completed Not Available Not Available Not Available Vitamin D2 1,250 mcg (50,000 unit) capsule TAKE ONE CAPSULE BY MOUTH TWICE A WEEK active Not Available Not Available No t Available Anafranil 75 mg capsule 09/15 completed TYPE: OTHER; DAYS TO TAKE 0; AUTHORIZ ATION: N; LAST UPDATED BY: DEEPTHI MURRELL; SENT TO: 0; STATUS: RECORD D/C; MEDICATI ON STATUS: DISCONTI NUED Not Available Not Available Not Available cefdinir 300 mg capsule TAKE 1 CAPSULE TWICE DAILY. 03/15 completed TYPE: OTHER; DAYS TO TAKE 10; RX#: [id number]; EXPECTED ACTION: EVALUATE ; EXPECTED ACTION DATE: 11 MAR 2013; MANAGED BY: ALISHA CORNELIUS; ORDERED BY: ALISHA CORNELIUS; AUTHORIZ ATION: N; LAST UPDATED BY: ALISHA CORNELIUS; DO NOT FILL BEFORE DATE: 01 MAR 2014; SENT TO: 0; STATUS: RECORD D/C; MEDICATI ON STATUS: DISCONTI NUED Not Available Not Available Not Available losartan 100 mg tablet Take 1 tablet(s ) every day by oral route. 2019 active Not Available Not Available Not Avai lable amoxicill in 875 mg-potass ium clavulana te 125 mg tablet TAKE 1 TABLET EVERY 12 HOURS DAILY FOR 10 DAYS 01/17 completed TYPE: OTHER; DAYS TO TAKE 10; EXPECTED ACTION: EVALUATE ; EXPECTED ACTION DATE: 08 NOV 2014; MANAGED BY: FE REYNOSO; ORDERED BY: FE REYNOSO; AUTHORIZ ATION: N; LAST UPDATED BY: CHRIS WINTERS; SENT TO: [facility]; STATUS: RECORD D/C; MEDICATI ON STATUS: DISCONTI NUED Not Available Not Available Not Available amoxicill in 500 mg-potass ium clavulana te 125 mg tablet TAKE 1 TABLET BY MOUTH 3 TIMES DAILY 03/07 completed TYPE: FILLED RX; DAYS TO TAKE 10; RX#: [id number]; EXPECTED ACTION: EVALUATE ; EXPECTED ACTION DATE: 06 FEB 2015; MANAGED BY: ALISHA CORNELIUS; ORDERED BY: ALISHA CORNELIUS; AUTHORIZ ATION: N; LAST UPDATED BY: ALISHA CORNELIUS; DO NOT FILL BEFORE DATE: 18 JAN 2016; SENT TO: [facility]; STATUS: PRESCRIB ED; MEDICATI ON STATUS: ACTIVE Not Available Not Available Not Available Wellbutri n SR 200 mg tablet, 12 hr sustained -release TAKE 1 TABLET TWICE DAILY. 02/14 completed TYPE: OTHER; DAYS TO TAKE 0; AUTHORIZ ATION: N; LAST UPDATED BY: ISRAEL HASSAN; SENT TO: 0; STATUS: DISCONTI NUED; MEDICATI ON STATUS: DISCONTI NUED Not Available Not Available Not Available Augmentin XR 1,000 mg-62.5 mg tablet,ex tended release TAKE 2 TABLETS TWICE DAILY 05/03 completed TYPE: OTHER; DAYS TO TAKE 14; RX#: [id number] ; MANAGED BY: KHAI MENDOZA; ORDERED BY: KHAI MENDOZA; AUTHORIZ ATION: N; LAST UPDATED BY: TESFAYE MOULTON; DO NOT FILL BEFORE DATE: 03 MAY 2007; SENT TO: 0; STATUS: DISCONTI NUED; MEDICATI ON STATUS: DISCONTI NUED Not Available Not Available Not Available Testim 50 mg/5 gram (1 %) transderm al gel APPLY 1 PACKET DIRECTED ONCE DAILY 2014 active TYPE: FILLED RX; DAYS TO TAKE 0; RX#: [id number] 4; EXPECTED ACTION: EVALUATE ; MANAGED BY: ALISHA CORNELIUS; ORDERED BY: ALISHA CORNELIUS; AUTHORIZ ATION: N; LAST UPDATED BY: ALISHA CORNELIUS; DO NOT FILL BEFORE DATE: 24 JUN 2015; SENT TO: 0; STATUS: PRESCRIB ED; MEDICATI ON STATUS: ACTIVE Not Available Not Available Not Available pseudoeph edrine-gu aifenesin ER 120 mg-400 mg 12hr cap,exten ded release TAKE 1 CAPSULE EVERY 12 HOURS DAILY. 06/01 completed TYPE: ACTIVE; DAYS TO TAKE 15; RX#: [id number] ; MANAGED BY: TESFAYE MOULTON; ORDERED BY: TESFAYE MOULTON; AUTHORIZ ATION: N; LAST UPDATED BY: TESFAYE MOULTON; DO NOT FILL BEFORE DATE: 01 JUN 2007; SENT TO: 0; STATUS: COMPLETE D; MEDICATI ON STATUS: COMPLETE Not Available Not Available Not Available Claritin active Not Available Not Avai lable Not Available Vitamin D 06/01 completed TYPE: OTHER; DAYS TO TAKE 0; AUTHORIZ ATION: N; LAST UPDATED BY: CHIP FORDE; SENT TO: 0; STATUS: RECORD D/C; MEDICATI ON STATUS: DISCONTI NUED Not Available Not Available Not Available Strattera 100 mg capsule 09/15 completed TYPE: OTHER; DAYS TO TAKE 0; AUTHORIZ ATION: N; LAST UPDATED BY: DEEPTHI MURRELL; SENT TO: 0; STATUS: RECORD D/C; MEDICATI ON STATUS: DISCONTI NUED Not Available Not Available Not Available ProAir HFA 90 mcg/actua tion aerosol inhaler 03/07 completed Not Available Not Available Not Available Abilify 2 mg tablet 03/14 completed TYPE: OTHER; DAYS TO TAKE 0; AUTHORIZ ATION: N; LAST UPDATED BY: TANIA KELSEY; SENT TO: 0; STATUS: RECORD D/C; MEDICATI ON STATUS: DISCONTI NUED Not Available Not Available Not Available levocetir izine 5 mg tablet 1 TAB DAILY FOR ALLERGIE S 2012 active TYPE: FILLED RX; DAYS TO TAKE 30; RX#: [id number] 5; EXPECTED ACTION: EVALUATE ; EXPECTED ACTION DATE: 29 JUL 2014; MANAGED BY: ALISHA CORNELIUS; ORDERED BY: ALISHA CORNELIUS; AUTHORIZ ATION: N; LAST UPDATED BY: ALISHA CORNELIUS; DO NOT FILL BEFORE DATE: 03 AUG 2014; SENT TO: 0; STATUS: RENEWED; MEDICATI ON STATUS: ACTIVE Not Available Not Available Not Available AndroGel 20.25 mg/1.25 gram per pump act. (1.62 %) transderm al gel APPLY 3 PUMP PRESSES ONCE DAILY DIRECTED 06/22 completed Not Available Not Available Not Available Viibryd 40 mg tablet TAKE 1 TABLET BY MOUTH AT BEDTIME active Not Available Not Available No t Available Nuvigil 200 mg tablet 06/01 completed TYPE: OTHER; DAYS TO TAKE 0; AUTHORIZ ATION: N; LAST UPDATED BY: CHIP FORDE; SENT TO: 0; STATUS: RECORD D/C; MEDICATI ON STATUS: DISCONTI NUED Not Available Not Available Not Available Fluvirin 4501-8218 (PF) 45 mcg (15 mcg x 3)/0.5 mL IM syringe active Not Available Not Available Not Available Vitals Date Recorded Body height Body weight Body mass index (BMI) Heart rate Respiratory rate Body temperature Systolic blood pressure Diastolic blood pressure Provider Name and Address Organization Details Last Updated DateTime 7 177.8 cm 531562. 99 g 52.8 kg/m2 128 /min 20 /min 97 [degF] 126 mm[Hg] 86 mm[Hg] Fly Ochoa [facility] 7 13:21:28 Date Recorded Body height Body mass index (BMI) Body weight Heart rate Respiratory rate Body temperature Systolic blood pressure Diastolic blood pressure Provider Name and Address Organization Details Last Updated DateTime 7 177.8 cm 54.8 kg/m2 499762. 85 g 128 /min 24 /min 97.2 [degF] 150 mm[Hg] 106 mm[Hg] Fly Packer [facility] 7 15:07:29 Date Recorded Body height Body mass index (BMI) Body weight Heart rate Respiratory rate Body temperature Systolic blood pressure Diastolic blood pressure Provider Name and Address Organization Details Last Updated DateTime 8 175.26 cm 56.3 kg/m2 398169. 69 g 104 /min 24 /min 97.4 [degF] 142 mm[Hg] 90 mm[Hg] Julia Santo [facility] 8 16:19:37 Date Recorded Body height Body mass index (BMI) Body weight Heart rate Respiratory rate Body temperature Systolic blood pressure Diastolic blood pressure Provider Name and Address Organization Details Last Updated DateTime 9 175.26 cm 56.5 kg/m2 959595. 16 g 108 /min 18 /min 97.8 [degF] 142 mm[Hg] 86 mm[Hg] Nicole Garcia [facility] 9 14:01:04 Date Recorded Body weight Respiratory rate Body mass index (BMI) Heart rate Body height Body temperature Systolic blood pressure Diastolic blood pressure Provider Name and Address Organization Details Last Updated DateTime 6 461521. 285600 g 16 /min 53.1 kg/m2 92 /min 177.8 cm 97.9 [degF] 150 mm[Hg] 98 mm[Hg] ALEX CONTRERAS [facility] 6 17:02:08 Social History Question Answer Notes LastModified by Organizat ion Details LastModified Time Tobacco Smoking Status Never [facility]2017 15:08:07 What Was The Date Of Your Most Recent Tobacco Screening? 06/22/2018 Information n ot available 06/01/2019 Sex: Unknown Functional Status None recorded. Mental Status None recorded. Family History Nothing Reported Notes:09/27/2008: : Family h istory of Reported Family History Of Early Sudden Deaths Medical History No medical history recorded. 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 [facility] 08/11/2017 15:14:26 influenza, unspecified formulation 1 completed Not Available [facility] 12/08/2019 02:14:28 influenza, unspecified formulation 3 completed Not Available [facility] 12/08/2019 02:14:28 influenza, unspecified formulation 4 completed Not Available [facility] 07/19/2015 16:28:53 Td(adult) unspecified formulation 5 completed Not Available [facility] 12/08/2019 02:14:30 Past Encounters Encounter ID Performer Location Encounter Start Date Encounter Closed Date Diagnosis/Indication Diagnosis SNOMED-CT Code Diagnosis ICD10 Code Diagnosis Note [id number] [facility] - [facility] [place] [address] [place] [address] 06/23/2005 00:00:00 [id number] auto[place]r act [place] [facility] [place] [address] [place] [address] 04/27/2006 00:00:00 [id number] autoContr act - [facility] [place] [address] [place] [address] 06/13/2006 00:00:00 [id number] autoContr act - [facility] [place] [address] [place] [address] 06/21/2006 00:00:00 [id number] autoContr act - [facility] [place] [address] [place] [address] 08/19/2006 00:00:00 [id number] autoContr act - [facility] [place] [address] [place] [address] 11/23/2006 00:00:00 [id number] autoContr act - [facility] [place] [address] [place] [address] 01/26/2007 00:00:00 [id number] autoContr act - [facility] [place] [address] [place] [address] 05/03/2007 00:00:00 [id number] autoContr act - [facility] [place] [address] [place] [address] 08/23/2007 00:00:00 [id number] autoContr act - [facility] [place] [address] [place] [address] 12/05/2007 00:00:00 [id number] autoContr act - [facility] [place] [address] [place] [address] 01/23/2008 00:00:00 [id number] autoContr act - [facility] [place] [address] [place] [address] 09/27/2008 00:00:00 [id number] autoContr act - [facility] [place] [address] [place] [address] 02/14/2009 00:00:00 [id number] autoContr act - [facility] [place] [address] [place] [address] 05/24/2009 00:00:00 [id number] autoContr act - [facility] [place] [address] [place] [address] 10/06/2009 00:00:00 [id number] autoContr act - [facility] [place] [address] [place] [address] 12/01/2009 00:00:00 [id number] autoContr act - [facility] [place] [address] [place] [address] 07/14/2010 00:00:00 [id number] autoContr act - [facility] [place] [address] [place] [address] 11/27/2010 00:00:00 [id number] autoContr act - [facility] [place] [address] [place] [address] 03/03/2011 00:00:00 [id number] autoContr act - [facility] [place] [address] [place] [address] 03/12/2011 00:00:00 [id number] autoContr act - [facility] [place] [address] [place] [address] 08/17/2011 00:00:00 [id number] autoContr act - [facility] [place] [address] [place] [address] 09/03/2011 00:00:00 [id number] autoContr act - [facility] [place] [address] [place] [address] 11/15/2011 00:00:00 [id number] autoContr act - [facility] [place] [address] [place] [address] 08/24/2012 00:00:00 [id number] autoContr act - [facility] [place] [address] [place] [address] 09/15/2012 00:00:00 [id number] autoContr act - [facility] [place] [address] [place] [address] 03/01/2013 00:00:00 [id number] autoContr act - [facility] [place] [address] [place] [address] 03/15/2013 00:00:00 [id number] autoContr act - [facility] [place] [address] [place] [address] 06/01/2013 00:00:00 [id number] autoContr act - [facility] [place] [address] [place] [address] 06/13/2013 00:00:00 [id number] autoContr act - [facility] [place] [address] [place] [address] 07/02/2013 00:00:00 [id number] autoContr act - [facility] [place] [address] [place] [address] 08/03/2013 00:00:00 [id number] autoContr act - [facility] [place] [address] [facility] [place] [address] 09/04/2013 00:00:00 [id number] autoContr act - [facility] [place] [address] [facility] [address] 11/19/2013 00:00:00 [id number] autoContr act - [facility] [place] [address] [facility] [address] 03/14/2014 00:00:00 [id number] autoContr act - [facility] [place] [address] [facility] [address] 08/12/2014 00:00:00 [id number] autoContr act - [facility] [place] [address] [facility] [address] 09/30/2014 00:00:00 [id number] autoContr act - [facility] [place] [address] [facility] [address] 10/29/2014 00:00:00 [id number] autoContr act - [facility] [place] [address] [facility] [address] 01/17/2015 00:00:00 [id number] PMG_TAKEM _[facility]* [address] [facility],[address] [place] [address] 06/05/2015 00:00:00 [id number] PMG_TAKEM _[facility]* [address] [facility],[address] [place] [address] 02/21/2015 00:00:00 [id number] Jb Cornelius MD PMG_FFPTC _[facility]* [address] [place] [address] 03/18/2016 16:54:28 03/18/2016 17:38:26 Benign essential hypertension 0943237 I10 Hyperlipidemia 53403720 E78.5 Testicular hypofunction 447522987 E29.1 Abscess of abdominal wall 38775637 L02.211 [id number] Jb Cornelius MD [facility]* [address] [place] [address] 03/07/2017 13:06:40 03/07/2017 14:37:05 Benign essential hypertension 7866801 I10 Testicular hypofunction 995685141 E29.1 Hyperlipidemia 26079786 E78.5 Obsessive- compulsive disorder 096086002 F42.8 Asperger's disorder 2356 0001 F84.5 [id number] Jb Cornelius MD [facility] _[facility]* [address] [address] 08/11/2017 14:34:21 08/11/2017 16:02:36 Cellulitis of pinna 615676331 H60.11 Benign ess ential hypertension 9980092 I10 Depressive disorder 3548 9007 F33.2 [id number] Jb Cornelius MD [facility]* [address] [address] 06/22/2018 15:55:25 06/22/2018 17:50:00 Benign essential hypertension 9300015 I10 Vitamin D deficiency 347 95672 E55.9 MVI QD Testicular hypofunction 655365279 E29.1 Pt to be seeing Endo Hyperlipidemia 61931999 E78.5 diet and exercise Depressive disorder 35[address] Yoni beck psychiatry and ana chu on Venlafaxin e [id number] Jb Cornelius MD [facility]* [address] [address] 05/22/2019 13:22:45 05/22/2019 14:36:19 Acute bronchitis 01279029 J20.9 Acute sinusitis 84737800 J01.90 Cough 80396332 R05 Headache 02497704 R51 Health Concerns Section Related Observation LastModified by Organization Detai ls LastModified Time None Recorded Concern Status LastModified by Organization Details LastModified Time None Recorded Advance Directives Directive None Recorded Payers Insurance Date Sequence Insurance Name Policy Number Policy Park Covered Member ID Park Member ID Guarantor Name 05/22/2019 1 [facility]: [employer] [facility] [facility] [employer] [id number] Aly Restrepo Streeter [id number] Aly Streeter Notes Date Note Type Note Provider Name and Address Organization Details Recorded Time 6 text/html F/U HyperlipidemiaReported bypatient.Control:usually well controlled; improving; at goal Current Therapy:controlled with lifestyle changes Associated Symptoms:no chest pain; no shortness of breath; no calf pain with exertion; no myalgiaF/U HypertensionReported bypatient.Blood Pressure Readings:average blood pressure readings: ; blood pressure range: ; average pulse: ; pulse range: Associated Symptoms:no dizziness/lightheadedness; no chest pain; no shortness of breath; no palpitations; no edema; no numbness/loss of sensation; no calf pain with exertion HPI HTN and ABD Wall Abscess and Hypogoandism and Hyperlipidmeia Pt with recet ABD Wall Abscess and on Augmentin has resolved HTN and off Rx x few days and needs Rx refills. Good BP numbers while on Rx. Off Rx x 4-5 days and BP = 150/98 Hypogoandism and gonig to see Endo in [place] area, needs labs done for thsi Hx of hyperlipidmeia, needs lipids checked for his HTN? Jb Cornelius MD [address], [place], [address], [facility] [employer] [facility] 03/18/2016 17:36:57 7 text/html HTN and Hypogoadism and Hyuperlipidemia 3 med issues to address Pt with HTN and on Losartan 50 mg, doing well. Needs Rx and labs Hypogonadism needs Rx and labs Hyperlipidemia needs labs and diet and exerise and wt loss Pt needs list of his diagnosis for his employer MD [address], [place], [address], [facility] 03/07/2017 14:17:50 7 text/html R ear pain, fatigue and sinus and HTN R ear pains noted wiht mild sinus sx noted. Fatigue and malaise noted and here to discuss prior labs HTN and on Losartan 50 mg, here to discuss possible increase MD [address], [place], [address], [facility] 08/11/2017 16:01:27 8 text/html HTN, Vit D deficiency, Depression and hypogonandims Multiple med issues HTN needs Rx and labs done Vit D deficicney needs labs and MVI Depression and sees psychiatry Dr. Nahomy Robert and is on Venlafaxine Hyperlipidemia needs labs and diet and exerise Hypogoandism needs labs and consider Rx, though pt staes he is going to see Endo MD [address], [place], [address], [facility] [employer] [facility] 06/22/2018 17:23:09 9 text/html URI, cough and cold Acute URI x weeks and states he has note been able to sleep wiht his URI. He has mild apnea, and has gotten worse last 1-2 weeks. Pt went to Urgent [facility] and given prednisone and ? Cephalosporin and now with worsening sx MD [address], [place], [address], [facility] 05/22/2019 14:32:01 9 text/html Upper Respiratory SymptomsReported bypatient.Symptoms:cough; difficulty breathing; chest congestion; sinus pain; nasal congestion; sore throat Location:sinus/nasal; throat; chest Quality:significant nasal congested;productive cough;colored phlegm;hacking cough;wheezy cough Severity:moderate Onset/Timing:gradual Context:no foreign travel; non-smoker;sick contact Modifying Factors:nothing gives relief; saline nasal rinses Associated Symptoms:no fever; no sweats; no cough; no wheezing; no nausea; no vomiting; no diarrhea; no rash;earache;yellow-green, thick sputum;shortness of breathNotes:Progressivly worsening over last several days, sore throat, congestion, laryngitis, fatigue, headache, poor sleep quality incuding insomnia, with facial pain and cough. Slight shortness of breath and wheeze. Decreased energy and malaise. Not improved with OTC products. Patient overall feeling ill and tired, wishes to rest Jb Cornelius MD [address], [place], [address], [facility] 05/22/2019 14:32:01
[2025-03-15 11:25] LABS: Alanine Aminotransferase 39 U/L (0-40); Albumin Level 4.3 g/dL (3.5-5.0); Alkaline Phosphatase 64 U/L (39-117); Anion Gap 12 (12-20); Aspartate Amino Transferase 27 U/L (5-37); Bilirubin Total 1.2 mg/dL (0.0-1.0); Blood Urea Nitrogen 22 mg/dL (9-16); Calcium 9.9 mg/dL (8.4-10.2); Carbon Dioxide 26 mmol/L (22-29); Chloride 104 mmol/L (96-108); Cholesterol 178 mg/dL (<200); Estimated Glomerular Filt Rate > 60; Glucose Fasting 93 mg/dL (60-99); HDL Cholesterol 38 mg/dL (>40); LDL Cholesterol Calculated 94 mg/dL (<100); Potassium 3.9 mmol/L (3.3-5.1); Sodium 138 mmol/L (135-145); Total Protein 7.4 g/dL (6.5-8.0); Triglycerides 230 mg/dL (<150)
== END 2025-03-15 07:41 | disposition home or self-care (01) ==
LOC: HO.WFDLDS 07:40
PROVIDERS: Visit Provider Nurse Practitioner Family
DX: I10 Essential (primary) hypertension (principal); E78.1 Pure hyperglyceridemia
CPT/HCPCS: 36415; 80053; 80061

== ENCOUNTER 2025-03-19 08:30 | Outpatient (AMB) | payer BC, SELFPAY ==
--- NOTE | 2025-03-19 08:32 | MHC.PC.OV ---
Vital Signs 03/19/25 08:37 Height 5 ft 10 in Weight 365 lb 8 oz BMI 52.4 BP 134/77 Blood Pressure Location Rt brachial Position Sitting Respiration 16 Pulse 66 Pulse Source Pulse Oximeter Temp 97.9 F Temp Source Oral Pulse Oximetry (%) 95 Oxygen Delivery Method Room Air Intake Visit Reasons: 3 mos HTN Intake Note: patient here for 3 month follow up for HTN Order Detailer Required: No Allergies blueberry Adverse Reaction (Intermediate, Verified 03/19/25 08:36) Stomach Upset pollen Allergy (Mild, Uncoded 03/19/25 08:36) Dry Mucus Membranes Tobacco use date assessed: 03/19/25 Dental Screening Dental Screen Date: 03/19/25 Did you have a dental visit in the last 12 months?: No Did you have a dental problem in the last 6 months where you did not have access to dental care?: No Was dental information given to patient?: Patient has dentist HPI HPI Comments History of Present Illness Details 39-year-old male presents for hypertension and hypertriglyceridemia follow-up. He admits to taking his medications as prescribed without adverse reactions. He has been making healthy lifestyle changes. He consumes red meat once weekly and avoids cheese and processed foods. He lost 28 lb since his last visit. He has lost a total of about 70 lb since he started the Weight Management program at [facility] about 4 months ago. He offers no complaints and denies acute symptoms at this time. [facility] Medical History Inguinal hernia Insomnia Hypertension Depression Hay fever Surgical History No pertinent past surgical history Family History Mother Diabetes Cardiovascular disease Cancer Father Hypertension Alcoholism Psychiatric problem Maternal Grandmother Diabetes Breast cancer Paternal Grandmother Lung cancer Maternal Grandfather Psychiatric problem Paternal Grandfather Alcoholism Other Mental health disorder Social History Housing: Apartment Alcohol intake: never Patient Tobacco Use Status: Never used Tobacco e-Cigarette/Vaping Use: Never Used Second Hand Smoke Exposure: No service: No Current occupational status: employed Current occupation: Patient works with the [employer] Current occupational exposures/hazards: No Cognitive needs: No Hearing needs: No Vision needs: No Questionnaire Thrive Questionnaire Date Thrive assessed: 12/10/24 I am a: Patient What is your living situation today?: I have a steady place to live Within the past 12 months, did the food you bought not last and you didn't have the money to get more?: Never true Within the past 12 months, did you worry whether your food would run out before you got money to buy more?: Never true Do you have trouble paying for medicines?: No Do you have trouble getting transportation to medical appointments?: No Do you have trouble paying your heating and electricity bill?: No Do you have trouble taking care of your child, family member or friend?: No Do you have trouble with day-to-day activities such as bathing, preparing meals, shopping, managing finances, etc.?: No Are you currently unemployed and looking for a job?: No Are you interested in more education?: No Please select the resources that you would like help with: None Currently or been in a relationship where the following occur: No concerns reported THRIVE Score: 0 RAFIA-7 AMB Questionnaire RAFIA-7 Date RAFIA - 7 assessed: 06/18/24 Source: Developed by Drs. Eddie Alcantara, Hayde Meyer, Soto Mane and colleagues, with an educational rebecca from [employer]. Review of Systems Const Details: Const Denies chills, Denies fatigue, Denies fever(s), Denies headache(s) and Denies weakness ENT Denies dizziness and Denies headache(s) Card Denies chest pain, Denies lightheadedness, Denies dyspnea and Denies other (Palpitations) Resp Denies cough, Denies dyspnea, Denies wheezing and Denies other ( shortness of breath) GI Denies abdominal pain, Denies melena, Denies hematochezia, Denies change in bowel habits, Denies dyspepsia and Denies nausea Denies hematuria and Denies dysuria Musc Denies abnormal gait, Denies myalgias, Denies arthralgias, Denies numbness and Denies tingling Skin/Breast Denies rash, Denies unusual bruising and Denies wounds Neuro Denies abnormal gait, Denies dizziness, Denies headache(s), Denies memory loss, Denies numbness, Denies Sensory deficit (Neuro), Denies tingling and Denies weakness Psych Denies anxiety, Denies depression, Denies memory loss Endo Denies cold intolerance, Denies fatigue, Denies heat intolerance, Denies polydipsia and Denies polyuria Aller/Immun Denies wheezing Physical exam (Primary Care) Vital Signs: Last Vital Signs Temp 97.9 F 03/19/25 08:37 Pulse 66 03/19/25 08:37 Resp 16 03/19/25 08:37 BP 134/77 03/19/25 08:37 Pulse Ox 95 03/19/25 08:37 Oxygen Delivery Method Room Air 03/19/25 08:37 BMI result Body Mass Index 52.4 Tobacco/Smoking Status: Tobacco use Status Tobacco use date assessed 03/19/25 03/19/25 08:39 Patient Tobacco Use Status Never used Tobacco 03/19/25 08:35 e-Cigarette/Vaping Use Never Used 03/19/25 08:35 Thrive Assessment: Date of Thrive Assessment Date Thrive assessed 12/10/24 03/19/25 08:35 Currently or been in a relationship where the following occur: No concerns reported Const Other: General: no acute distress and well developed Nutritional Appearance: well nourished Orientation/consciousness: patient oriented x3 HENMT Head: Yes normocephalic and Yes atraumatic Eyes General: appearance normal, both eyes and all related structures Pupils: Equal, round and reactive pupils present EOM: EOMs intact bilaterally Resp Effort & Inspection: normal respiratory effort Auscultation: clear to auscultation bilaterally Cardio Rate: regular rate Rhythm: regular rhythm Heart sounds: S1 normal heart sound present, S2 normal heart sound present, no gallops, no murmurs and no rubs GI Palpation (GI): No Abdominal aortic bruit present, Soft to palpation, nontender, No hepatosplenomegaly present and No Rebound tenderness present Auscultation: normal bowel sounds General: Yes no CVA tenderness Back/Spine/Pelvis Back: no CVA tenderness Cervical Spine: cervical ROM normal and No Cervical spine tenderness Thoracic/Lumbar Spine: thoraco-lumbar ROM normal, No pain with thoraco-lumbar ROM, No thoracic spinal tenderness and No lumbar spinal tenderness Extrem General: Yes normal to inspection, No edema and No calf tenderness Skin General: warm and dry. Normal skin color. Normal skin turgor Neuro General: patient oriented x3, gait normal and no focal neuro deficit Cranial nerves: Yes Equal, round and reactive pupils present Cognition (Neuro): normal cognition Gait exam (Neuro): Normal gait present Sensory Exam: No Sensory deficit (Neuro) Psych Appearance: grossly normal Affect: normal affect Attitude: cooperative Thought process: Normal thought process present Coding Level of Care Code Est Pt Level 3 (25874) Diagnoses Primary hypertension I10 Hypertension type: primary hypertension Hypertriglyceridemia E78.1 Laboratory tests ordered as part of a complete physical exam (CPE) Z00.00 Assessment & Plan Assessment & Plan (1) Hypertension: Code(s): I10 - Essential (primary) hypertension Category: Medical Qualifiers: Hypertension type: primary hypertension Qualified Code(s): I10 - Essential (primary) hypertension Plan: Blood pressure today is 134/77, within goal of less than 140/90. Continue current treatment regimen. Low-sodium diet encouraged. Perform lab work and follow-up for an extended physical exam in 3 months. Return sooner with symptoms or concerns. Verbalized understanding and agreed with treatment plan. (2) Hypertriglyceridemia: Code(s): E78.1 - Pure hyperglyceridemia Category: Medical Plan: Recent triglycerides is elevated, 230 from 189, HDL is slightly low, 38, total cholesterol and LDL levels are normal. 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 He may consider medication treatment at his next visit if his triglycerides remain elevated. Advised to limit foods high in saturated fat and avoid foods high in trans fat. Routine exercise encouraged. Will recheck lipid panel levels in 3 months. Verbalized understanding and agreed with the treatment plan. (3) Laboratory tests ordered as part of a complete physical exam (CPE): Code(s): Z00.00 - Encounter for general adult medical examination without abnormal findings Category: Medical Plan: Fasting labs ordered as part of a complete physical exam. Advised to fast for at least 10 hours before getting labs drawn. May drink water Verbalized understanding and agreed with treatment plan. Orders: Orders Lipid Panel Today Z00.00 - Encounter for general adult medical examination without abnormal findings Complete Blood Count Auto Diff Today Z00.00 - Encounter for general adult medical examination without abnormal findings Comprehensive [place]. Panel Fast Today E78.1 - Pure hyperglyceridemia Microalbumin, Random (w Creat) Today Z00.00 - Encounter for general adult medical examination without abnormal findings PSA, Ultra Sensitive Today Z00.00 - Encounter for general adult medical examination without abnormal findings TSH reflex Free T4 Today Z00.00 - Encounter for general adult medical examination without abnormal findings UA CC w/rflx Micro + Cult Today Z00.00 - Encounter for general adult medical examination without abnormal findings Vitamin D 25-OH Total Today Z00.00 - Encounter for general adult medical examination without abnormal findings
[2025-03-19 08:37] VITALS: BP 134/77; PULSE 66; RESP 16; TEMP 36.6; O2SAT 95; BMI 52.4
--- OUTSIDE RECORDS SUMMARY | 2025-03-19 08:46 | XMS_ITS | Clinical Summary ---
Author Organization [facility] ity Address [address] [place] [address] Care Team Providers Care Return To Vendor Name Role Phone Unavailable Primary Care Provider [...]
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
--- OUTSIDE RECORDS SUMMARY | 2025-03-19 08:47 | XMS_ITS | Continuity of Care Document ---
Author Organization [facility]. If a dditional information is needed, contact Health Information Management at [phone] [address] [place] [address] Phone Care Team Providers Care Immunologist Name Role Phone Unavailable Unavailable Unavailable Unavailable Unavailable Unavailable Problems Patient encounter status Onset:02-Jun-2020 PAC Radha Restrepo Follow-up status Onset:21-Dec-2014 Abscess of thigh Onset:19-Dec-2014 Follow-up status Onset:19-Dec-2014 Recurrent major depression in full remission Comments:MDD (major depressive disorder), recurrent, in full remission Anxiety Comments:Anxiety Generalized anxiety disorder Comments:Generalized anxiety disorder Autistic disorder Comments:Autism Allergies and Adverse Reactions [...]
--- OUTSIDE RECORDS SUMMARY | 2025-03-19 08:47 | XMS_ITS | Data Portability ---
Author Organization [facility] [employer], [id number] Office* Address [address] [facility] [address] [place] [id number] Assessment No assessment recorded. Plan of Treatment Reminders Order Date Submit Date Provider Last Modified By Organization Details Last Modified Time Details Appointments None recorded. Lab vitamin D, 25-hydrox y, total, serum 2017 018 [facility] ([place]), [address] [place], [address], 8 08:51:47 testoster one, free + total, serum 2017 018 [facility] ([place]), [address] [place], [address], 8 08:51:41 lipid panel, serum 2017 018 [facility] [address] [place], [address], 8 08:51:39 HbA1c (hemoglob in A1c), blood 2017 018 [facility] ([place]), [address] [place], [address], 8 08:51:43 TSH, ultra-sen sitive, serum 2017 018 [facility] ([place]), [address] [place], [address], 8 08:51:45 CMP, serum or plasma 2017 018 [facility] ([place]), [address] [place], [address], 8 08:51:35 urinalysi s, complete 2017 018 [facility] ([place]), [address] [place], [address], 8 08:51:37 testoster one, free + total, serum 2016 017 HAN[facility] ([place]), [address] [place], [address], 7 16:43:42 lipid panel, serum 2016 017 [facility] ([place]), [address] [place], [address], 7 16:43:40 CMP, serum or plasma 2016 017 H[facility] ([place]), [address] [place], [address], 7 16:43:38 urinalysi s, complete 2016 017 HAN[facility] ([place]), [address] [place], [address], 7 16:43:39 testoster one, free + total, serum 2015 016 [email or web address] [facility] ([place]), [address] [place], [address], 6 11:35:04 lipid panel, serum 2015 016 [email or web address] [facility] ([place]), [address] [place], [address], 6 08:36:50 CMP, serum or plasma 2015 016 [email or web address] [facility] ([facility], [address] [place], [address], 6 11:35:04 TSH, serum or plasma 2015 016 [email or web address] [facility] ([place]), [address] [place], [address], 6 08:36:51 Referral None recorded. Procedures None recorded. Surgeries None recorded. Imaging None recorded. Medication Orders Levaquin 500 mg tablet 2018 019 [facility] [address] [facility] [address], 0 15:10:53 prednison e 20 mg tablet 2018 019 [facility] [address] [facility] [address], 9 14:31:29 losartan 100 mg tablet 2017 018 [facility], [address] [facility] , [address], 8 16:50:42 cephalexi n 500 mg capsule 2016 017 [email or web address] [facility], [address] [place], [place], , 8 16:11:42 losartan 100 mg tablet 2016 017 [facility], [address] [place], , 7 15:57:18 AndroGel 20.25 mg/1.25 gram per pump act. (1.62 %) transderm al gel 2016 017 [email or web address] [facility], [address] [place], , 8 16:11:20 losartan 50 mg tablet 2016 017 [facility], [address] [place], , 7 15:55:08 amoxicill in 500 mg-potass ium clavulana te 125 mg tablet 2015 016 [email or web address] [facility], [address] [place], , 7 13:15:01 losartan 50 mg tablet 2015 016 [facility], [address] [place], , 7 15:55:08 Patient TargetsNo targets recorded. Patient Instructions Encounter Date Encounter Id Patient Instructions Last Modified By Organization Details Last Modified Time 03/18/2016 [id number] high blood pressure: care instructions HANH Not available 10/10/2016 05:05:35 learning about high blood pressure HANH Not available 10/10/2016 05:06:42 03/07/2017 [id number] learning about autism spectrum disorder (ASD) HANH Not available 04/10/2017 05:02:12 high cholesterol : care instructions HANH Not available 04/10/2017 05:02:17 high blood pressure: care instructions HANH Not available 04/10/2017 05:02:15 learning about high blood pressure HANH Not available 04/10/2017 05:02:23 obsessive-compul s vargas disorder: care instructions HANH Not available 04/10/2017 05:02:21 08/11/2017 [id number] learning about mood disorders HANH Not available 09/11/2017 05:05:59 high blood pressure: care instructions HANH Not available 09/11/2017 05:05:49 learning about high blood pressure HANH Not available 09/11/2017 05:06:24 06/22/2018 [id number] learning about mood disorders adolcich Not available 06/22/2018 16:50:40 high cholesterol : care instructions adolcich Not available 06/22/2018 16:50:40 05/22/2019 [id number] headache: care instructions adolcich Not available 05/22/2019 [...] 80 mg/dL 65-99 Not Available [facility] ([facility]) [address] [place], [address], 03/08/2017 16:43:38 03/07/20 17 03/08/2017 CMP, serum or plasm a BUN 15 mg/dL 6-20 Not Available [facility] ([facility]) [address] [place], [address], 03/08/2017 16:43:38 03/07/20 17 03/08/2017 CMP, serum or plasm a creatinine, serum 0.97 mg/dL 0.76-1 .27 Not Available [facility] ([facility]) [address] [place], [address], 03/08/2017 16:43:38 03/07/20 17 03/08/2017 CMP, serum or plasm a eGFR if nonafricn AM 104 mL/mi n/1.7 3 >59 Not Available [facility] ([facility]) [address] [place], [address], 03/08/2017 16:43:38 03/07/20 17 03/08/2017 CMP, serum or plasm a eGFR if africn AM 121 mL/mi n/1.7 3 >59 Not Available [facility] ([facility]) [address] [place], [address], 03/08/2017 16:43:38 03/07/20 17 03/08/2017 CMP, serum or plasm a BUN/creatini ne ratio 15 9-20 Not Available [facility] ([facility]) [address] [place], [address], 03/08/2017 16:43:38 03/07/20 17 03/08/2017 CMP, serum or plasm a sodium, serum 141 mmol/ L 134-14 4 Not Available [facility] ([facility]) [address] [place], [address], 03/08/2017 16:43:38 03/07/20 17 03/08/2017 CMP, serum or plasm a potassium, serum 4.6 mmol/ L 3.5-5. 2 Not Available [facility] ([facility]) [address] [place], [address], 03/08/2017 16:43:38 03/07/20 17 03/08/2017 CMP, serum or plasm a chloride, serum 99 mmol/ L 96-106 Not Available [facility] ([facility]) [address] [place], [address], 03/08/2017 16:43:38 03/07/20 17 03/08/2017 CMP, serum or plasm a carbon dioxide, total 21 mmol/ L 18-29 Not Available [facility] ([facility]) [address] [place], [address], 03/08/2017 16:43:38 03/07/20 17 03/08/2017 CMP, serum or plasm a calcium, serum 10.2 mg/dL 8.7-10 .2 Not Available [facility] ([facility]) [address] [place], [address], 03/08/2017 16:43:38 03/07/20 17 03/08/2017 CMP, serum or plasm a protein, total, serum 7.5 g/dL 6.0-8. 5 Not Available [facility] ([facility]) [address] [place], [address], 03/08/2017 16:43:38 03/07/20 17 03/08/2017 CMP, serum or plasm a albumin, serum 4.8 g/dL 3.5-5. 5 Not Available [facility] ([facility]) [address] [place], [address], 03/08/2017 16:43:38 03/07/20 17 03/08/2017 CMP, serum or plasm a globulin, total 2.7 g/dL 1.5-4. 5 Not Available [facility] ([facility]) [address] [place], [address], 03/08/2017 16:43:38 03/07/20 17 03/08/2017 CMP, serum or plasm a A/G ratio 1.8 1.2-2. 2 Not Available [facility] ([facility]) [address] [place], [address], 03/08/2017 16:43:38 03/07/20 17 03/08/2017 CMP, serum or plasm a bilirubin, total 1.4 mg/dL 0.0-1. 2 above high normal Not Available [facility] ([facility]) [address] [place], [address], 03/08/2017 16:43:38 03/07/20 17 03/08/2017 CMP, serum or plasm a alkaline phosphatase, S 96 IU/L 39-117 Not Available [facility] ([facility]) [address] [place], [address], 03/08/2017 16:43:38 03/07/20 17 03/08/2017 CMP, serum or plasm a AST (SGOT) 40 IU/L 0-40 Not Available [facility] ([facility]) [address] [place], [address], 03/08/2017 16:43:38 03/07/20 17 03/08/2017 CMP, serum or plasm a ALT (SGPT) 92 IU/L 0-44 above high normal Not Available [facility] ([facility]) [address] [place], [address], 03/08/2017 16:43:38 03/07/20 17 03/08/2017 urina lysis , compl ete specific gravity 1.028 1.005- 1.030 Not Available [facility] ([facility]) [address] [place], [address], 03/08/2017 16:43:39 03/07/20 17 03/08/2017 urina lysis , compl ete pH 6.0 5.0-7. 5 Not Available [facility] ([facility]) [address] [place], [place], [address], 03/08/2017 16:43:39 03/07/20 17 03/08/2017 urina lysis , compl ete urine-color YELLOW yellow Not Available [facility] ([facility]) [address], [place], [address], 03/08/2017 16:43:39 03/07/20 17 03/08/2017 urina lysis , compl ete appearance CLEAR clear Not Available [facility] ([facility]) [address] [place], [place], [address], 03/08/2017 16:43:39 03/07/20 17 03/08/2017 urina lysis , compl ete WBC esterase NEGATI VE negati ve Not Available [facility] ([facility]) [address] [place], [address], 03/08/2017 16:43:39 03/07/20 17 03/08/2017 urina lysis , compl ete protein TRACE negati ve/tra ce Not Available [facility] ([facility]) [address] [place], [address], 03/08/2017 16:43:39 03/07/20 17 03/08/2017 urina lysis , compl ete glucose NEGATI VE negati ve Not Available [facility] ([facility]) [address] [place], [address], 03/08/2017 16:43:39 03/07/20 17 03/08/2017 urina lysis , compl ete ketones 1+ negati ve abnormal Not Available [facility] ([facility]) [address] [place], [address], 03/08/2017 16:43:39 03/07/20 17 03/08/2017 urina lysis , compl ete occult blood NEGATI VE negati ve Not Available [facility] ([facility]) [address] [place], [address], 03/08/2017 16:43:39 03/07/20 17 03/08/2017 urina lysis , compl ete bilirubin NEGATI VE negati ve Not Available [facility] ([facility]) [address] [place], [address], 03/08/2017 16:43:39 03/07/20 17 03/08/2017 urina lysis , compl ete urobilinogen ,semi-qn 0.2 mg/dL 0.2-1. 0 Not Available [facility] ([facility]) [address] [place], [address], 03/08/2017 16:43:39 03/07/20 17 03/08/2017 urina lysis , compl ete nitrite, urine NEGATI VE negati ve Not Available [facility] ([facility]) [address] [place] [address], [address], 03/08/2017 16:43:39 03/07/20 17 03/08/2017 urina lysis , compl ete microscopic examination COMMEN T MICRO SCOPI C NOT INDIC ATED AND NOT PERFO RMED. Not Available [facility] ([facility]) [address] [place], [address], 03/08/2017 16:43:39 03/07/20 17 03/08/2017 lipid panel , serum cholesterol, total 206 mg/dL 100-19 9 above high normal Not Available [facility] ([facility]) [address] [place], [address], 03/08/2017 16:43:40 03/07/20 17 03/08/2017 lipid panel , serum triglyceride s 159 mg/dL 0-149 above high normal Not Available [facility] ([facility]) [address] [place], [address], 03/08/2017 16:43:40 03/07/20 17 03/08/2017 lipid panel , serum HDL cholesterol 49 mg/dL >39 Not Available [facility] ([facility]) [address] [place], [address], 03/08/2017 16:43:40 03/07/20 17 03/08/2017 lipid panel , serum VLDL cholesterol enrique 32 mg/dL 5-40 Not Available [facility] ([facility]) [address] [place], [address], 03/08/2017 16:43:40 03/07/20 17 03/08/2017 lipid panel , serum LDL cholesterol calc 125 mg/dL 0-99 above high normal Not Available [facility] ([facility]) [address] [place], [address], 03/08/2017 16:43:40 03/07/20 17 03/08/2017 lipid panel , serum comment: ENTRY REP Not Available [facility] ([facility]) [address] [place], [address], 03/08/2017 16:43:40 03/07/20 17 03/08/2017 testo stero ne, free + total , serum testosterone , serum 232 NG/dL 348-11 97 below low normal Not Available [facility] ([facility]) [address] [place], [address], 03/08/2017 16:43:42 03/07/20 17 03/08/2017 testo stero ne, free + total , serum comment: COMMEN T ADULT MALE REFER AVERY CERVANTES IS BASED ON A POPUL ATION OF LEAN MALES UP TO 40 YEARS OLD. Not Available [facility] ([facility]) [address] [place], [address], 03/08/2017 16:43:42 03/07/20 17 03/08/2017 testo stero ne, free + total , serum free testosterone (direct) 14.4 pg/mL 8.7-25 .1 Not Available [facility] ([facility]) [address] [place], [address], 03/08/2017 16:43:42 06/22/20 18 06/23/2018 CMP, serum or plasm a glucose 109 mg/dL 65-99 above high normal Not Available [facility] ([facility]) [address] [place], [address], 06/24/2018 08:51:35 06/22/20 18 06/23/2018 CMP, serum or plasm a BUN 19 mg/dL 6-20 Not Available [facility] ([facility]) [address] [place], [address], 06/24/2018 08:51:35 06/22/20 18 06/23/2018 CMP, serum or plasm a creatinine 0.93 mg/dL 0.76-1 .27 Not Available [facility] ([facility]) [address] [place], [address], 06/24/2018 08:51:35 06/22/20 18 06/23/2018 CMP, serum or plasm a eGFR if nonafricn AM 109 mL/mi n/1.7 3 >59 Not Available [facility] ([facility]) [address] [place], [address], 06/24/2018 08:51:35 06/22/20 18 06/23/2018 CMP, serum or plasm a eGFR if africn AM 126 mL/mi n/1.7 3 >59 Not Available [facility] ([facility]) [address] [place], [address], 06/24/2018 08:51:35 06/22/20 18 06/23/2018 CMP, serum or plasm a BUN/creatini ne ratio 20 9-20 Not Available [facility] ([facility]) [address] [place], [address], 06/24/2018 08:51:35 06/22/20 18 06/23/2018 CMP, serum or plasm a sodium 140 mmol/ L 134-14 4 Not Available [facility] ([facility]) [address] [place], [address], 06/24/2018 08:51:35 06/22/20 18 06/23/2018 CMP, serum or plasm a potassium 4.3 mmol/ L 3.5-5. 2 Not Available [facility] ([facility]) [address] [place], [address], 06/24/2018 08:51:35 06/22/20 18 06/23/2018 CMP, serum or plasm a chloride 102 mmol/ L 96-106 Not Available [facility] ([facility]) [address] [place], [address], 06/24/2018 08:51:35 06/22/20 18 06/23/2018 CMP, serum or plasm a carbon dioxide, total 20 mmol/ L 20-29 Not Available [facility] ([facility]) [address] [place], [address], 06/24/2018 08:51:35 06/22/20 18 06/23/2018 CMP, serum or plasm a calcium 9.7 mg/dL 8.7-10 .2 Not Available [facility] ([facility]) [address] [place], [address], 06/24/2018 08:51:35 06/22/20 18 06/23/2018 CMP, serum or plasm a protein, total 7.0 g/dL 6.0-8. 5 Not Available [facility] ([facility]) [address] [place], [address], 06/24/2018 08:51:35 06/22/20 18 06/23/2018 CMP, serum or plasm a albumin 4.4 g/dL 3.5-5. 5 Not Available [facility] ([facility]) [address] [place], [address], 06/24/2018 08:51:35 06/22/20 18 06/23/2018 CMP, serum or plasm a globulin, total 2.6 g/dL 1.5-4. 5 Not Available [facility] ([facility]) [address] [place], [address], 06/24/2018 08:51:35 06/22/20 18 06/23/2018 CMP, serum or plasm a A/G ratio 1.7 1.2-2. 2 Not Available [facility] ([facility]) [address] [place], [address], 06/24/2018 08:51:35 06/22/20 18 06/23/2018 CMP, serum or plasm a bilirubin, total 0.6 mg/dL 0.0-1. 2 Not Available [facility] ([facility]) [address] [place], [address], 06/24/2018 08:51:35 06/22/2006/23/2018 CMP, serum or plasm a alkaline phosphatase 90 IU/L 39-117 Not Available [facility] ([facility]) [address] [place], [address], 06/24/2018 08:51:35 06/22/20 18 06/23/2018 CMP, serum or plasm a AST (SGOT) 27 IU/L 0-40 Not Available [facility] ([facility]) [address] [place], [address], 06/24/2018 08:51:35 06/22/20 18 06/23/2018 CMP, serum or plasm a ALT (SGPT) 79 IU/L 0-44 above high normal Not Available [facility] ([facility]) [address] [place], [address], 06/24/2018 08:51:35 06/22/20 18 06/23/2018 urina lysis , compl ete specific gravity >=1.03 0 1.005- 1.030 abnormal Not Available [facility] ([facility]) [address], [place], [address], 06/24/2018 08:51:37 06/22/20 18 06/23/2018 urina lysis , compl ete pH 5.0 5.0-7. 5 Not Available [facility] ([facility]) [address] [place], [address], 06/24/2018 08:51:37 06/22/2006/23/2018 urina lysis , compl ete urine-color Yellow yellow Not Available [facility] ([facility]) [address] [place], [address], 06/24/2018 08:51:37 06/22/20 18 06/23/2018 urina lysis , compl ete appearance Clear clear Not Available [facility] ([facility]) [address] [place], [address], 06/24/2018 08:51:37 06/22/2006/23/2018 urina lysis , compl ete WBC esterase Negati ve negati ve Not Available [facility] ([facility]) [address] [place], [address], 06/24/2018 08:51:37 06/22/20 18 06/23/2018 urina lysis , compl ete protein Trace negati ve/tra ce Not Available [facility] ([facility]) [address] [place], [address], 06/24/2018 08:51:37 06/22/20 18 06/23/2018 urina lysis , compl ete glucose Negati ve negati ve Not Available [facility] ([facility]) [address] [place], [address], 06/24/2018 08:51:37 06/22/20 18 06/23/2018 urina lysis , compl ete ketones Negati ve negati ve Not Available [facility] ([facility]) [address] [place], [address], 06/24/2018 08:51:37 06/22/20 18 06/23/2018 urina lysis , compl ete occult blood 3+ negati ve abnormal Not Available [facility] ([facility]) [address] [place], [address], 06/24/2018 08:51:37 06/22/20 18 06/23/2018 urina lysis , compl ete bilirubin Negati ve negati ve Not Available [facility] ([facility]) [address] [place], [address], 06/24/2018 08:51:37 06/22/20 18 06/23/2018 urina lysis , compl ete urobilinogen ,semi-qn 0.2 mg/dL 0.2-1. 0 Not Available [facility] ([facility]) [address] [place], [address], 06/24/2018 08:51:37 06/22/20 18 06/23/2018 urina lysis , compl ete nitrite, urine Negati ve negati ve Not Available [facility] ([facility]) [address] [place], [address], 06/24/2018 08:51:37 06/22/20 18 06/23/2018 urina lysis , compl ete microscopic examination See below: Micro scopi c was indic ated and was perfo rmed. Not Available [facility] ([facility]) [address], [place], [address], 06/24/2018 08:51:37 06/22/20 18 06/23/2018 urina lysis , compl ete WBC 0-5 /hpf 0 - 5 Not Available [facility] ([facility]) [address], [place], [address], 06/24/2018 08:51:37 06/22/20 18 06/23/2018 urina lysis , compl ete RBC >30 /hpf 0 - 2 abnormal Not Available [facility] ([facility]) [address], [place], [address], 06/24/2018 08:51:37 06/22/20 18 06/23/2018 urina lysis , compl ete epithelial cells (non renal) 0-10 /hpf 0 - 10 Not Available [facility] ([facility]) [address], [place], [address], 06/24/2018 08:51:37 06/22/20 18 06/23/2018 urina lysis , compl ete epithelial cells (renal) ENTRY REP Not Available [facility] ([facility]) [address], [place], [address], 06/24/2018 08:51:37 06/22/20 18 06/23/2018 urina lysis , compl ete casts None seen /lpf none seen Not Available [facility] ([facility]) [address] [place], [address], 06/24/2018 08:51:37 06/22/20 18 06/23/2018 urina lysis , compl ete cast type ENTRY REP Not Available [facility] ([facility]) [address] [place], [address], 06/24/2018 08:51:37 06/22/20 18 06/23/2018 urina lysis , compl ete crystals ENTRY REP Not Available [facility] ([facility]) [address] [place], [address], 06/24/2018 08:51:37 06/22/20 18 06/23/2018 urina lysis , compl ete crystal type ENTRY REP Not Available [facility] ([facility]) [address], [place], [address], 06/24/2018 08:51:37 06/22/20 18 06/23/2018 urina lysis , compl ete mucus threads Presen t not estab. Not Available [facility] ([facility]) [address], [place], [address], 06/24/2018 08:51:37 06/22/20 18 06/23/2018 urina lysis , compl ete bacteria Few none seen/f ew Not Available [facility] ([facility]) [address], [place], [address], 06/24/2018 08:51:37 06/22/20 18 06/23/2018 urina lysis , compl ete yeast ENTRY REP Not Available [facility] ([facility]) [address], [place], [address], 06/24/2018 08:51:37 06/22/20 18 06/23/2018 urina lysis , compl ete trichomonas ENTRY REP Not Available [facility] ([facility]) [address], [place], [address], 06/24/2018 08:51:37 06/22/20 18 06/23/2018 urina lysis , compl ete comment ENTRY REP Not Available [facility] ([facility]) [address], [place], [address], 06/24/2018 08:51:37 06/22/20 18 06/23/2018 lipid panel , serum cholesterol, total 200 mg/dL 100-19 9 above high normal Not Available [facility] ([facility]) [address] [place], [address], 06/24/2018 08:51:39 06/22/20 18 06/23/2018 lipid panel , serum triglyceride s 229 mg/dL 0-149 above high normal Not Available [facility] ([facility]) [address] [place], [address], 06/24/2018 08:51:39 06/22/20 18 06/23/2018 lipid panel , serum HDL cholesterol 46 mg/dL >39 Not Available [facility] ([facility]) [address] [place], [address], 06/24/2018 08:51:39 06/22/20 18 06/23/2018 lipid panel , serum VLDL cholesterol enrique 46 mg/dL 5-40 above high normal Not Available [facility] ([facility]) [address] [place], [address], 06/24/2018 08:51:39 06/22/20 18 06/23/2018 lipid panel , serum LDL cholesterol calc 108 mg/dL 0-99 above high normal Not Available [facility] ([facility]) [address] [place], [address], 06/24/2018 08:51:39 06/22/20 18 06/23/2018 lipid panel , serum comment: ENTRY REP Not Available [facility] ([facility]) [address] [place], [address], 06/24/2018 08:51:39 06/22/20 18 06/23/2018 testo stero ne, free + total , serum testosterone , serum 208 NG/dL 264-91 6 below low normal Adult male refer ence inter jovi is based on a popul ation of healt hy nonob arian males (BMI <30) betwe en 19 and 39 years old. Ulices horn et.al . JCEM 2017, 102;1 161-1 173. PMID: 55115 103. Not Available [facility] ([facility]) [address], [place], [address], 06/24/2018 08:51:41 06/22/20 18 06/24/2018 testo stero ne, free + total , serum free testosterone (direct) 7.0 pg/mL 8.7-25 .1 below low normal Not Available [facility] ([facility]) [address] [place], [address], 06/24/2018 08:51:41 06/22/20 18 06/23/2018 HbA1c (hemo globi n A1c), blood hemoglobin A1C 5.5 % 4.8-5. 6 Predi abete s: 5.7 - 6.4 Diabe negro: >6.4 Glyce sonali contr ol for adult s with diabe negro: <7.0 Not Available [facility] ([facility]) [address] [place], [address], 06/24/2018 08:51:43 06/22/20 18 06/23/2018 TSH, ultra -sens itive , serum TSH 1.580 uIU/m L 0.450- 4.500 Not Available [facility] ([facility]) [address] [place], [address], 06/24/2018 08:51:45 06/22/20 18 06/23/2018 vitam in [...] um and D. Bonnie lopez [place]: [facility] . 2. Sowmya vogt MF, Sarha starks [place], Arina off-F ary i CALL, et al. Evalu ation , treat ment, and preve ntion of vitam in D defic iency : an Endoc rine Socie ty clini enrique pract ice guide line. JCEM. 2010; 96(7) :1911 -30. Not Available [facility] ([facility]) [address], [place], [address], 06/24/2018 08:51:47 Result Notes None recorded. Problems Name Problem SNOMED Code Status Onset Date Resolution Date Notes Provider Name and Address Organization Details Recorded Time Elevated level of transami nase and lactic acid dehydrog enase 597604550 Active 2012 MD [address], [place], [address] , [facility] 6 17:36:09 Allergic rhinitis 55805680 Active 2006 MD [address], [place], [address] , [facility] 6 17:36:08 Noninfec tious gastroen teritis 46090813 Completed 200607/21/2015 TYPE: CHRONIC; IDENTIFI ED BY: GLORIA RAM; LAST EDITED: 13 APR 2014 1:24PM; STATUS: ACTIVE; LAST REVIEWED DATE: 20140413 ; PROBLEM CATEGORY : SUPPRESS ED Jb Cornelius MD [address], [place], [address] , [facility] 6 17:36:08 Pain in thoracic spine 302781433 Completed 201007/21/2015 LAST ASSESSED : 12 MAR 2011 1:58PM; TYPE: CHRONIC; IDENTIFI ED BY: ISRAEL HASSAN; LAST EDITED: 13 APR 2014 1:25PM; STATUS: RESOLVED ; LAST REVIEWED DATE: 20140413 ; PROBLEM CATEGORY : SUPPRESS ED MD [address], [place], [address] , [facility] 6 17:36:08 Acute bronchit is 59469311 Completed 201107/21/2015 LAST ASSESSED : 15 MAR 2013 12:01PM; TYPE: ACUTE; IDENTIFI ED BY: ALISHA CORNELIUS; LAST EDITED: 13 APR 2014 1:25PM; STATUS: RESOLVED ; LAST REVIEWED DATE: 20140413 ; PROBLEM CATEGORY : SUPPRESS ED MD [address], [place], [address] , [facility] 7 14:06:09 Cough [id number] Completed 200707/21/2015 TYPE: CHRONIC; IDENTIFI ED BY: ISRAEL HASSAN .; LAST EDITED: 13 APR 2014 1:24PM; STATUS: ASSUMED RESOLVED ; LAST REVIEWED DATE: 20140413 ; PROBLEM CATEGORY : SUPPRESS ED Fly resendiz, [facility] 7 13:15:36 Spasm 42448316 Completed 201007/21/2015 LAST ASSESSED : 12 MAR 2011 1:58PM; TYPE: CHRONIC; IDENTIFI ED BY: ISRAEL HASSAN; LAST EDITED: 13 APR 2014 1:25PM; STATUS: RESOLVED ; LAST REVIEWED DATE: 20140413 ; PROBLEM CATEGORY : SUPPRESS ED MD [address], [place], [address] , [facility] 6 17:36:08 Testicul ar hypofunc tion 336011479 [facility] 7 13:15:25 Hyperlip idemia 57073232 Active 2012 MD [address], [place], [address] , [facility] 6 17:36:08 Acute bronchit is 08790787 Completed 201403/07/2017 MD [address], [place], [address] , [facility] 7 14:06:09 Pain in limb 81027832 Completed 200507/21/2015 TYPE: CHRONIC; PROBLEM DESCRIPT ION: POSSIBLE FRACTURE ; IDENTIFI ED BY: LELE SAUCEDO; LAST EDITED: 13 APR 2014 1:24PM; STATUS: ACTIVE; LAST REVIEWED DATE: 20140413 ; PROBLEM CATEGORY : SUPPRESS ED MD [address], [place], [address] , [facility] 6 17:36:08 Acute frontal sinusiti s 08095492 Completed 201303/07/[address], [place], [address] , [facility] 7 14:06:28 Acute sinusiti s 47937322 Completed 200807/21/2015 LAST ASSESSED : 06 OCT 2009 11:32AM; TYPE: ACUTE; IDENTIFI ED BY: GLORIA ALVARADO; LAST EDITED: 13 APR 2014 1:25PM; STATUS: RESOLVED ; LAST REVIEWED DATE: 20140413 ; PROBLEM CATEGORY : SUPPRESS ED MD [address], [place], [address] , [facility] 7 14:06:13 Malaise and fatigue 665315689 Completed 201107/21/2015 LAST ASSESSED : 15 NOV 2011 10:48AM; TYPE: CHRONIC; IDENTIFI ED BY: ALISHA CORNELIUS; LAST EDITED: 13 APR 2014 1:25PM; STATUS: RESOLVED ; LAST REVIEWED DATE: 20140413 ; PROBLEM CATEGORY : SUPPRESS ED Fly Ochoa resendiz, [facility] 7 13:15:31 Screenin julia for disorder Completed 200807/21/2015 TYPE: CHRONIC; IDENTIFI ED BY: ISRAEL HASSAN; LAST EDITED: 06 OCT 2009 11:21AM; STATUS: RESOLVED ; LAST REVIEWED DATE: 20091006 ; PROBLEM CATEGORY : SUPPRESS ED MD [address], [address] , [facility] 6 17:36:09 Influenz a vaccine needed 41410744157 06 Completed 201003/07/2017 [facility] 7 13:15:26 Influenz a vaccine needed 30442629022 06 Completed 201007/21/2015 LAST ASSESSED : 04 SEP 2013 3:45PM; TYPE: CHRONIC; IDENTIFI ED BY: TESFAYE MOLUTON; LAST EDITED: 13 APR 2014 1:25PM; STATUS: ACTIVE; LAST REVIEWED DATE: 20140413 ; PROBLEM CATEGORY : ACTIVE Fly resendiz, [facility] 7 13:15:26 Disorder of rotator cuff 728052533 Completed 200707/21/2015 TYPE: CHRONIC; IDENTIFI ED BY: ALISHA CORNELIUS; LAST EDITED: 27 SEP 2008 1:48PM; STATUS: ACTIVE; LAST REVIEWED DATE: 20080927 ; PROBLEM CATEGORY : SUPPRESS ED Jb Cornelius MD [address], [address] , [facility] 6 17:36:09 Pleurisy 316508080 Completed 200707/21/2015 TYPE: CHRONIC; IDENTIFI ED BY: ALISHA CORNELIUS; LAST EDITED: 13 APR 2014 1:25PM; STATUS: ACTIVE; LAST REVIEWED DATE: 20140413 ; PROBLEM CATEGORY : SUPPRESS ED Jb Cornelius MD [address] [facility], [place], [address] , [facility] 6 17:36:08 Injury of chest wall 00358201 Completed 200707/21/2015 TYPE: CHRONIC; IDENTIFI ED BY: ALISHA CORNELIUS; LAST EDITED: 27 SEP 2008 1:48PM; STATUS: ACTIVE; LAST REVIEWED DATE: 20080927 ; PROBLEM CATEGORY : SUPPRESS ED Jb Cornelius MD [address] [place] [address], [address] , [facility] 6 17:36:09 Acute sinusiti s 94622692 Completed 201403/07/2017 MD [address], [place], [address] , [facility] 7 14:06:13 Acute upper respirat ory infectio n 46096093 Completed 201203/07/2017 MD [address], [place], [address] , [facility] 7 14:06:36 Bacteria l pneumoni a 56625117 Completed 200707/21/2015 TYPE: CHRONIC; IDENTIFI ED BY: ALISHA CORNELIUS; LAST EDITED: 13 APR 2014 1:24PM; STATUS: ACTIVE; LAST REVIEWED DATE: 20140413 ; PROBLEM CATEGORY : SUPPRESS ED MD [address], [place], [address] , [facility] 6 17:36:08 Benign essentia l hyperten tomás 0663551 Active 2012 MD [address], [place], [address] , [facility] 6 17:36:08 Cough 09905409 Completed 201303/07/2017 Fly [facility] 7 13:15:36 Depressi ve disorder 04981197 Active 2004 MD [address], [place], [address] , [facility] 6 17:36:08 Acute upper respirat ory infectio n 59445787 Completed 201007/21/2015 LAST ASSESSED : 03 SEP 2011 10:56AM; TYPE: ACUTE; IDENTIFI ED BY: TESFAYE MOULTON; LAST EDITED: 13 APR 2014 1:25PM; STATUS: RESOLVED ; LAST REVIEWED DATE: 20140413 ; PROBLEM CATEGORY : SUPPRESS ED MD [address], [place], [address] , [facility] 7 14:06:36 Acute pharyngi tis 178592501 Completed 201007/21/2015 LAST ASSESSED : 03 SEP 2011 10:52AM; TYPE: ACUTE; IDENTIFI ED BY: GHANSHYAM HUSAIN; LAST EDITED: 13 APR 2014 1:25PM; STATUS: RESOLVED ; LAST REVIEWED DATE: 20140413 ; PROBLEM CATEGORY : SUPPRESS ED MD [address], [place], [address] , [facility] 6 17:36:08 Headache 83197547 Completed 201107/21/2015 LAST ASSESSED : 01 MAR 2013 10:00AM; TYPE: CHRONIC; IDENTIFI ED BY: ALISHA CORNELIUS; LAST EDITED: 13 APR 2014 1:24PM; STATUS: RESOLVED ; LAST REVIEWED DATE: 20140413 ; PROBLEM CATEGORY : SUPPRESS ED MD [address], [place], [address] , [facility] 6 17:36:08 Infectio us diarrhea l disease 33534965 Completed 201107/21/2015 LAST ASSESSED : 15 SEP 2012 4:41PM; TYPE: CHRONIC; IDENTIFI ED BY: ALISHA CORNELIUS; LAST EDITED: 13 APR 2014 1:25PM; STATUS: RESOLVED ; LAST REVIEWED DATE: 20140413 ; PROBLEM CATEGORY : SUPPRESS ED MD [address], [place], [address] , [facility] 6 17:36:08 Dyspnea 149218814 Completed 201107/21/2015 LAST ASSESSED : 01 JUN 2013 2:20PM; TYPE: CHRONIC; IDENTIFI ED BY: ALISHA CORNELIUS; LAST EDITED: 13 APR 2014 1:25PM; STATUS: RESOLVED ; LAST REVIEWED DATE: 20140413 ; PROBLEM CATEGORY : SUPPRESS ED MD [address], [place], [address] , [facility] 7 14:06:16 Chest pain 89666283 Completed 200707/21/2015 TYPE: CHRONIC; IDENTIFI ED BY: ALISHA CORNELIUS; LAST EDITED: 13 APR 2014 1:25PM; STATUS: ACTIVE; LAST REVIEWED DATE: 20140413 ; PROBLEM CATEGORY : SUPPRESS ED Jb Cornelius MD [address], [place], [address] , [facility] 6 17:36:09 Obstruct vargas sleep apnea syndrome 73638838 Active 2009 Jb Cornelius MD [address], [place], [address] , [facility] 6 17:36:08 Jorge de la Tourette 's syndrome 8551331 Active 2004 Jb Cornelius MD [address], [place], [address] , [facility] 6 17:36:08 Attentio n deficit hyperact ivity disorder 115740263 Active 2004 Jb Cornelius MD [address], [place], [address] , [facility] 6 17:36:08 Adult health examinat ion Active 2012 Jb Cornelius MD [address], [place], [address] , [facility] 6 17:36:09 Neck pain 68514480 Completed 201007/22/2015 LAST ASSESSED : 12 MAR 2011 1:58PM; TYPE: CHRONIC; IDENTIFI ED BY: ISRAEL HASSAN; LAST EDITED: 13 APR 2014 1:25PM; STATUS: RESOLVED ; LAST REVIEWED DATE: 20140413 ; PROBLEM CATEGORY : SUPPRESS ED Jb Cornelius MD [address], [place], [address] , [facility] 6 17:36:08 Common cold 82641254 Completed 200607/22/2015 TYPE: CHRONIC; IDENTIFI ED BY: ISRAEL HASSAN .; LAST EDITED: 13 APR 2014 1:24PM; STATUS: ASSUMED RESOLVED ; LAST REVIEWED DATE: 20140413 ; PROBLEM CATEGORY : SUPPRESS ED MD [address], [place], [address] [place] [address] , [facility] 6 17:36:08 Insomnia 380565846 Active [address], [place], [address] [place] [address] , [facility] 6 17:36:08 Vitamin D deficien cy 66550814 Active [address], [place], [address] [place] [address] , [facility] 6 17:36:08 Elevated blood-pr essure reading without diagnosi s of hyperten tomás 416893190 Completed 201403/07/[address], [place], [address] [place] [address] , [facility] 7 14:09:24 Pain in limb 01660539 Completed 200511/13/[address], [place], [address] [place] [address] , [facility] 6 17:36:08 Contusio n of toe 74905750 Completed 201403/07/[address], [place], [address] , [facility] 7 14:06:24 Influenz a vaccine needed 06187478986 06 Completed 201011/13/2015 Fly [facility] 7 13:15:26 Disorder of rotator cuff 785579565 Completed 200711/13/[address], [place], [address] [place] [address] , [facility] 6 17:36:09 Pleurisy 451505380 Completed 200711/13/2015 Jb Cornelius MD [address], [place], [address] , [facility] 6 17:36:08 Injury of chest wall 29779444 Completed 200711/13/2015 Jb Cornelius MD [address], [place], [address] , [facility] 6 17:36:09 Bacteria l pneumoni a 97230113 Completed 200711/13/2015 Jb Cornelius MD [address], [place], [address] , [facility] 6 17:36:08 Malaise and fatigue 036720227 Completed 200611/13/2015 Fly resendiz, [facility] 7 13:15:31 Malaise and fatigue 084858288 Completed 201403/07/2017 [facility] 7 13:15:31 Chest pain 39468871 Completed 200711/13/2015 Jb Cornelius MD [address], [place], [address] , [facility] 6 17:36:09 Noninfec tious gastroen teritis 31318832 Completed 200611/13/2015 [address], [place], [address] , [facility] 6 17:36:08 Abscess of abdomina l wall 35849250 Completed 03/07/2017 Jb Cornelius MD [address], [place], [address] , [facility] 7 14:06:31 Dyspnea 596588593 Completed 200903/07/2017 Jb Cornelius MD [address], [place], [address] , [facility] 7 14:06:16 Problem Notes None recorded. Medical [...] TYPE: OTHER; DAYS TO TAKE 20; RX#: [id number] ; MANAGED BY: ALISHA CORNELIUS; ORDERED BY: [...] TYPE: OTHER; DAYS TO TAKE 14; RX#: [id number] ; MANAGED BY: KHAI MENDOZA; ORDERED BY: KHAI MENDOZA; AUTHORIZ ATION: N; LAST UPDATED BY: TESFAYE MOUTLON; DO NOT FILL BEFORE DATE: 03 MAY [...] TYPE: OTHER; DAYS TO TAKE 0; RX#: [id number] 4; EXPECTED ACTION: EVALUATE ; MANAGED BY: [...] TYPE: OTHER; DAYS TO TAKE 5; RX#: [id number] 9; EXPECTED ACTION: EVALUATE ; EXPECTED ACTION [...] TYPE: OTHER; DAYS TO TAKE 30; RX#: [id number] ; MANAGED BY: ALISHA CORNELIUS; ORDERED BY: [...] TYPE: OTHER; DAYS TO TAKE 7; RX#: [id number] ; MANAGED BY: ALISHA CORNELIUS; ORDERED BY: [...] TYPE: OTHER; DAYS TO TAKE 0; RX#: [id number] 0; EXPECTED ACTION: EVALUATE ; MANAGED BY: [...] TYPE: ACTIVE; DAYS TO TAKE 30; RX#: [id number] 9; EXPECTED ACTION: EVALUATE ; EXPECTED ACTION [...] TYPE: OTHER; DAYS TO TAKE 7; RX#: [id number] 8; EXPECTED ACTION: EVALUATE ; EXPECTED ACTION [...] TYPE: OTHER; DAYS TO TAKE 30; RX#: [id number] ; MANAGED BY: ALISHA CORNELIUS; ORDERED BY: [...] SENT TO: 0; ANNOTATI ONS: TANIA KELSEY [id number] 4 5:24PM CEFTRIAX ONE INJECTIO N 1ML [...] TYPE: OTHER; DAYS TO TAKE 10; RX#: [id number] 2; EXPECTED ACTION: EVALUATE ; EXPECTED ACTION [...] LAST UPDATED BY: CHRIS WINTERS; SENT TO: [id number]; STATUS: RECORD D/C; MEDICATI ON STATUS: DISCONTI NUED Not Available Not Available Not Available amoxicill in 500 mg-potass ium clavulana te 125 mg tablet TAKE 1 TABLET BY MOUTH 3 TIMES DAILY 03/07 completed TYPE: FILLED RX; DAYS TO TAKE 10; RX#: [id number] 2; EXPECTED ACTION: EVALUATE ; EXPECTED ACTION DATE: 06 FEB 2015; MANAGED BY: ALISHA CORENLIUS; ORDERED BY: ALISHA CORNELIUS; AUTHORIZ ATION: N; LAST UPDATED BY: ALISHA CORNELIUS; DO NOT FILL BEFORE DATE: 18 JAN 2016; SENT TO: [facility]; STATUS: PRESCRIB ED; MEDICATI [...] TYPE: OTHER; DAYS TO TAKE 14; RX#: [id number] ; MANAGED BY: KHAI MENDOZA; ORDERED BY: [...] FILLED RX; DAYS TO TAKE 0; RX#: [id number] 4; EXPECTED ACTION: EVALUATE ; MANAGED BY: [...] TYPE: ACTIVE; DAYS TO TAKE 15; RX#: [id number] ; MANAGED BY: TESFAYE MOULTON; ORDERED BY: [...] FILLED RX; DAYS TO TAKE 30; RX#: [id number] 5; EXPECTED ACTION: EVALUATE ; EXPECTED ACTION [...] Not Available Not Available Not Available Fluvirin [id number] (PF) 45 mcg (15 mcg x 3)/0.5 mL IM syringe active Not Available Not Available Not Available Vitals Date Recorded Body height Body weight Body mass index (BMI) Heart rate Respiratory rate Body temperature Systolic blood pressure Diastolic blood pressure Provider Name and Address Organization Details Last Updated DateTime 7 177.8 cm 387309. 99 g 52.8 kg/m2 128 /min 20 /min 97 [degF] 126 mm[Hg] 86 mm[Hg] Fly Ochoa [facility] 7 13:21:28 Date Recorded Body height Body mass index (BMI) Body weight Heart rate Respiratory rate Body temperature Systolic blood pressure Diastolic blood pressure Provider Name and Address Organization Details Last Updated DateTime 7 177.8 cm 54.8 kg/m2 493534. 85 g 128 /min 24 /min 97.2 [degF] 150 mm[Hg] 106 mm[Hg] Fly Packer [facility] 7 15:07:29 Date Recorded Body height Body mass index (BMI) Body weight Heart rate Respiratory rate Body temperature Systolic blood pressure Diastolic blood pressure Provider Name and Address Organization Details Last Updated DateTime 8 175.26 cm 56.3 kg/m2 504448. 69 g 104 /min 24 /min 97.4 [degF] 142 mm[Hg] 90 mm[Hg] Julia Santo [facility] 8 16:19:37 Date Recorded Body height Body mass index (BMI) Body weight Heart rate Respiratory rate Body temperature Systolic blood pressure Diastolic blood pressure Provider Name and Address Organization Details Last Updated DateTime 9 175.26 cm 56.5 kg/m2 537912. 16 g 108 /min 18 /min 97.8 [degF] 142 mm[Hg] 86 mm[Hg] Nicole Garcia [facility] 9 14:01:04 Date Recorded Body weight Respiratory rate Body mass index (BMI) Heart rate Body height Body temperature Systolic blood pressure Diastolic blood pressure Provider Name and Address Organization Details Last Updated DateTime 6 113774. 161177 g 16 /min 53.1 kg/m2 92 /min 177.8 cm 97.9 [degF] 150 mm[Hg] 98 mm[Hg] ALEX CONTRERAS [facility] 6 17:02:08 Social History Question Answer Notes LastModified by Organizat ion Details LastModified Time Tobacco Smoking Status [facility]/11[facility]2017 15:08:07 What Was The Date Of [...] influenza, unspecified formulation 7 completed Fly [facility] 08/11/2017 15:14:26 influenza, unspecified formulation 1 completed Not Available [facility] 12/08/2019 02:14:28 influenza, unspecified formulation 3 completed Not Available [facility] 12/08/2019 02:14:28 influenza, unspecified formulation 4 completed Not Available [facility] 07/19/2015 16:28:53 Td(adult) unspecified formulation 5 completed Not Available [facility] 12/08/2019 02:14:30 Past Encounters Encounter ID Performer Location Encounter Start Date Encounter Closed Date Diagnosis/Indication Diagnosis SNOMED-CT Code Diagnosis ICD10 Code Diagnosis Note [id number] [facility] [place] [address] [place] [address] 06/23/2005 00:00:00 [id number] [facility]r act [place] [facility] [place] [address] [place] [address] 04/27/2006 00:00:00 [id number] autoContr act - [facility] [place] [address] [place] [address] 06/13/2006 00:00:00 [id number] autoContr act - [facility] [place] [address] [place] [address] 06/21/2006 00:00:00 [id number] autoContr act - [facility] [place] [address] [place] [address] 08/19/2006 00:00:00 [id number] autoContr act - [facility] [place] [address] [place] [address] 11/23/2006 00:00:00 [id number] autoContr act - [facility] [place] [address] [place] [address] 01/26/2007 00:00:00 [id number] autoContr act - [facility] [place] [address] [place] [address] 05/03/2007 00:00:00 [id number] autoContr act - [facility] [place] [address] [place] [address] 08/23/2007 00:00:00 [id number] autoContr act - [facility] [place] [address] [place] [address] 12/05/2007 00:00:00 [id number] autoContr act - [facility] [place] [address] [place] [address] 01/23/2008 00:00:00 [id number] autoContr act - [facility] [address] [place] [address] 09/27/2008 00:00:00 [id number] autoContr act - [facility] [place] [address] [place] [address] 02/14/2009 00:00:00 [id number] autoContr act - [facility] [place] [address] [place] [address] 05/24/2009 00:00:00 [id number] autoContr act - [facility] [place] [address] [place] [address] 10/06/2009 00:00:00 [id number] autoContr act - [facility] [place] [address] [place] [address] 12/01/2009 00:00:00 [id number] autoContr act - [facility] [place] [address] [place] [address] 07/14/2010 00:00:00 [id number] autoContr act - [facility] [place] [address] [place] [address] 11/27/2010 00:00:00 [id number] autoContr act - [facility] [place] [address] [place] [address] 03/03/2011 00:00:00 [id number] autoContr act - [facility] [place] [address] [place] [address] 03/12/2011 00:00:00 [id number] autoContr act - [facility] [place] [address] [place] [address] 08/17/2011 00:00:00 [id number] autoContr act - [facility] [place] [address] [place] [address] 09/03/2011 00:00:00 [id number] autoContr act - [facility] [place] [address] [place] [address] 11/15/2011 00:00:00 [id number] autoContr act - [facility] [place] [address] [place] [address] 08/24/2012 00:00:00 [id number] autoContr act - [facility] [address] [place] [address] 09/15/2012 00:00:00 [id number] autoContr act - [facility] [address] [place] [address] 03/01/2013 00:00:00 [id number] autoContr act - [facility] [place] [address] [place] [address] 03/15/2013 00:00:00 [id number] autoContr act - [facility] [place] [address] [place] [address] 06/01/2013 00:00:00 [id number] autoContr act - [facility] [place] [address] [place] [address] 06/13/2013 00:00:00 [id number] autoContr act - [facility] [address] [place] [address] 07/02/2013 00:00:00 [id number] autoContr act - [facility] [place] [address] [place] [address] 08/03/2013 00:00:00 [id number] autoContr act - [facility] [place] [address] [facility] [place] [address] 09/04/2013 00:00:00 [id number] autoContr act - [facility] [place] [address] [facility] [place] [address] 11/19/2013 00:00:00 [id number] autoContr act - [facility] [place] [address] [facility] [place] [address] 03/14/2014 00:00:00 [id number] autoContr act - [facility] [place] [address] [facility] [place] [address] 08/12/2014 00:00:00 [id number] autoContr act - [facility] [place] [address] [facility] [place] [address] 09/30/2014 00:00:00 [id number] autoContr act - [facility] [place] [address] [facility] [place] [address] 10/29/2014 00:00:00 [id number] autoContr act - [facility] [place] [address] [facility] [place] [address] 01/17/2015 00:00:00 [id number] PMG_TAKEM _[facility]* [address] [place] [address] 06/05/2015 00:00:00 [id number] PMG_TAKEM _[facility]* [address] [place] [address] 02/21/2015 00:00:00 [id number] Jb Cornelius MD PMG_FFPTC _[facility]* [address] [place] [address] 03/18/2016 16:54:28 03/18/2016 17:38:26 Benign essential hypertension 6126341 I10 Hyperlipidemia 53300075 E78.5 Testicular hypofunction 017099429 E29.1 Abscess of abdominal wall 77647299 L02.211 [id number] Jb Cornelius MD [facility] Office* [address] [place] [address] 03/07/2017 13:06:40 03/07/2017 14:37:05 Benign essential hypertension 9831708 I10 Testicular hypofunction 009918104 E29.1 Hyperlipidemia 83389806 E78.5 Obsessive- compulsive disorder 251950061 F42.8 Asperger's disorder 2356 0001 F84.5 [id number] Jb Cornelius MD [facility] _[facility]* [address] [address] 08/11/2017 14:34:21 08/11/2017 16:02:36 Cellulitis of pinna 740936486 H60.11 Benign ess ential hypertension 9169934 I10 Depressive disorder 3548 9007 F33.2 [id number] Jb Cornelius MD [facility]* [address] [address] 06/22/2018 15:55:25 06/22/2018 17:50:00 Benign essential hypertension 3281393 I10 Vitamin D deficiency 347 37543 E55.9 MVI QD Testicular hypofunction 771477043 E29.1 Pt to be seeing Endo Hyperlipidemia 49755359 E78.5 diet and exercise Depressive disorder 35[address] Yoni beck psychiatry and ana chu on Venlafaxin e [id number] Jb Cornelius MD [facility] Office* [address] [address] 05/22/2019 13:22:45 05/22/2019 14:36:19 Acute bronchitis 97189517 J20.9 Acute sinusitis 89868995 J01.90 Cough 69488557 R05 Headache 95739078 R51 Health Concerns Section Related Observation LastModified by Organization Detai ls LastModified Time None Recorded Concern Status LastModified by Organization Details LastModified Time None Recorded Advance Directives Directive None Recorded Payers Insurance Date Sequence Insurance Name Policy Number Policy Aprk Covered Member ID Park Member ID Guarantor Name 05/22/2019 1 [facility]: SIXTO[place] [facility] [employer] 104 Aly Restrepo Streeter [id number] Aly Streeter Notes Date Note Type Note [...] Cornelius MD [address], [place], [address], [facility] [employer] [facility] 03/18/2016 17:36:57 7 text/html HTN and Hypogoadism and Hyuperlipidemia 3 med issues to address Pt with HTN and on Losartan 50 mg, doing well. Needs Rx and labs Hypogonadism needs Rx and labs Hyperlipidemia needs labs and diet and exerise and wt loss Pt needs list of his diagnosis for his employer MD [address], [place], [address], [facility] [employer] [facility] 03/07/2017 14:17:50 7 text/html R ear pain, fatigue and sinus and HTN R ear pains noted wiht mild sinus sx noted. Fatigue and malaise noted and here to discuss prior labs HTN and on Losartan 50 mg, here to discuss possible increase MD [address], [place], [address], [facility] [employer] [facility] 08/11/2017 16:01:27 8 text/html HTN, Vit [...] see Endo MD [address], [place], [address], [facility] [employer] [facility] 06/22/2018 17:23:09 9 text/html URI, cough and cold Acute URI x weeks and states he has note been able to sleep wiht his URI. He has mild apnea, and has gotten worse last 1-2 weeks. Pt went to Urgent csre and given prednisone and ? Cephalosporin and now with worsening sx MD [address], [place], [address], [facility] [employer] [facility] 05/22/2019 14:32:01 9 text/html Upper Respiratory [...] Cornelius MD [address], [place], [address], [facility] 05/22/2019 14:32:01
== END 2025-03-19 09:10 | disposition home or self-care (01) ==
LOC: HO.HMCFM 08:31
PROVIDERS: PCP Nurse Practitioner Family; Visit Provider Nurse Practitioner Family
DX: I10 Essential (primary) hypertension (principal); E78.1 Pure hyperglyceridemia; Z00.00 Encounter for general adult medical examination without abnormal findings

== ENCOUNTER → 2025-03-19 08:30 | Outpatient (BNVA) | payer BC, SELFPAY | PROVIDERS: PCP Nurse Practitioner Family; Visit Provider Nurse Practitioner Family | DX: Z13.89 Encounter for screening for other disorder (principal) ==

== ENCOUNTER 2025-06-19 07:49 | Outpatient (REF) | payer BC, SELFPAY ==
--- OUTSIDE RECORDS SUMMARY | 2025-06-19 07:50 | XMS_ITS | Continuity of Care Document ---
Author Organization [facility]. If a dditional information is needed, contact Health Information Management at [phone] Address [address] [place] [address] Phone Care Team Providers Care Christmas Tree Farm Manager Name Role Phone Unavailable Unavailable Unavailable Unavailable [...]
--- OUTSIDE RECORDS SUMMARY | 2025-06-19 07:51 | XMS_ITS | Clinical Summary ---
Author Organization [facility] ity Address [address] [place] [address] Care Team Providers Care Clinical Physician Assistant Name Role Phone Unavailable Primary Care Provider [...] Vaccine ( - 2023-2 5 season) 2024 Depression Screening 11/07/2024 Influenza Vaccine (#1) 2025 HIB Vaccines Aged Out No longer [...] 5 Years) and At-Risk Patients (6 to 49 Years) Aged Out No longer eligible b ased on patient's age to complete this topic RSV Immunization Patients Un grzegorz 20 months Aged Out No longer eligible b ased on patient's age to complete this topic Varicella Vaccines Aged Out No longer eligible based on patient's age to complete this topic
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
[2025-06-19 11:25] LABS: MANUAL DIFF FLAG NO
[2025-06-19 11:32] LABS: Hematocrit 47.6 % (42.0-52.0); Hemoglobin 16.0 g/dl (14.0-18.0); Imm Gran Abs Auto 0.02 X10*3/uL (0.00-0.03); Imm Gran Pct Auto 0.3 % (0.0-0.4); Lymphocytes Absolute Auto 2.9 X10*3/uL (1.2-4.9); Mean Corpuscular HGB Conc 33.6 g/dl (31.0-36.0); Mean Corpuscular Hemoglobin 30.0 pg (27.0-33.0); Mean Corpuscular Volume 89.3 fL (80.0-98.0); NRBC Abs Auto 0.000 X10*3/uL (0.0-0.012); NRBC Pct Auto 0.0 /100WBC (0.0-0.2); Platelet Count 249 X10*3/uL (160-400); Red Blood Count 5.33 X10*6/uL (4.60-5.80); White Blood Count 7.0 X10*3/uL (4.8-10.8)
[2025-06-19 12:05] LABS: Alanine Aminotransferase 30 U/L (0-40); Albumin Level 4.3 g/dL (3.5-5.0); Alkaline Phosphatase 65 U/L (39-117); Anion Gap 12 (12-20); Aspartate Amino Transferase 24 U/L (5-37); Blood Urea Nitrogen 24 mg/dL (9-16); Calcium 9.3 mg/dL (8.4-10.2); Carbon Dioxide 27 mmol/L (22-29); Chloride 108 mmol/L (96-108); Cholesterol 164 mg/dL (<200); Estimated Glomerular Filt Rate > 60; HDL Cholesterol 36 mg/dL (>40); Potassium 3.8 mmol/L (3.3-5.1); Sodium 143 mmol/L (135-145); Total Protein 7.0 g/dL (6.5-8.0); Triglycerides 195 mg/dL (<150)
[2025-06-19 17:45] LABS: Appearance Urine Clear; Glucose Urine UA Negative (Negative); PH 5.5 (5.0-9.0); Specific Gravity - Urine >= 1.030 (1.005-1.025); UMIC TRIGGER UACC YES
[2025-06-19 17:49] LABS: UACC Culture Trigger YES
[2025-06-19 18:07] LABS: Microalbum/Creatinine Ratio Ur 39.1 ug/mg cr (<30)
[2025-06-25 22:13] LABS: PSA, Ultra Sensitive 0.09 ng/mL
== END 2025-06-19 07:50 | disposition home or self-care (01) ==
LOC: HO.WFDLDS 07:49
PROVIDERS: Visit Provider Nurse Practitioner Family
DX: Z00.00 Encounter for general adult medical examination without abnormal findings (principal); E78.1 Pure hyperglyceridemia; Z12.5 Encounter for screening for malignant neoplasm of prostate
CPT/HCPCS: 36415; 80053; 80061; 81001; 82043; 82306; 82570; 84153; 84443; 85025; 87086

== ENCOUNTER 2025-07-23 14:50 | Outpatient (AMB) | payer BC, SELFPAY ==
--- NOTE | 2025-07-23 14:52 | A.OFFPC_ITS ---
Vital Signs 07/23/25 14:57 Height 5 ft 10 in Weight 333 lb 4 oz BMI 47.8 BP 125/69 Blood Pressure Location Lt brachial Position Sitting Respiration 16 Pulse 74 Pulse Source Pulse Oximeter Temp 98.1 F Temp Source Oral Pulse Oximetry (%) 97 Oxygen Delivery Method Room Air Intake Visit Reasons: 3 mos CPE, labs review Intake Note: patient here for CPE and lab review Tag Clerk Required: No Allergies blueberry Adverse Reaction (Intermediate, Verified 07/23/25 15:11) Stomach Upset pollen Allergy (Mild, Uncoded 07/23/25 15:11) Dry Mucus Membranes Medication List - Last Reconciled 07/23/25 by Rommel Flores CNP bupropion HCl SR (Wellbutrin SR) 150 mg PO QAM loratadine (Allergy Relief (loratadine)) 10 mg PO DAILY losartan-hydrochlorothiazide 100-12.5 mg 1 tab PO DAILY 90 days melatonin 10 mg PO BEDTIME PRN metoprolol tartrate 100 mg PO BID miscellaneous medical supply 1 extra-large blood pressure cuff/monitor vilazodone (Viibryd) 60 mg PO DAILY Tobacco use date assessed: 07/23/25 Dental Screening Dental Screen Date: 07/23/25 Did you have a dental visit in the last 12 months?: No Did you have a dental problem in the last 6 months where you did not have access to dental care?: No Was dental information given to patient?: Patient has dentist HPI HPI Comments History of Present Illness Details 40-year-old male presents for an extende d physical exam. He admits to taking his medications as prescribed without adverse reactions. He notes that his mood is generally well controlled on current treatment regimen. He has been followed by [facility] weight management for over a year; has been making healthy dietary choices and exercising regularly and has lost over 100 lb. Acute issue(s) - None Past Medical History - Hypertension, hypertriglyceridemia, m yopia, sleep apnea (stopped wearing CPAP because he could not tolerate the device), insomnia, elevated ALT, morbid obesity, autism, PTSD, anxiety, and MDD. Social History - Nonsmoker. Does not vape. Drinks 1 gla ss of wine once every 6 months. Denies recreational drug use - Has been making healthy dietary choice s. Exercises routinely. Sleep has significant improved Health maintenance - Last eye exam was a few weeks ago [facility] in [place]. Encouraged to sign a release for his PCP to obtain his ophthalmology record - Last dental visit was over year ago; e ncouraged to schedule an appointment with his dentist for routine dental care - Last tetanus vaccine was more than 10 years ago; received Tdap vaccine today - Has not been vaccinated for the flu season; he intends to get the vaccine from his employer Specialists - [facility] sleep medicine - Virtual psychiatrist every 2-3 month a nd therapist every 2-3 weeks - [facility] Medical weight management [facility] Medical History Inguinal hernia Insomnia Hypertension Depression Hay fever Surgical History No pertinent past surgical history Family History Mother Diabetes Cardiovascular disease Cancer Father Hypertension Alcoholism Psychiatric problem Maternal Grandmother Diabetes Breast cancer Paternal Grandmother Lung cancer Maternal Grandfather Psychiatric problem Paternal Grandfather Alcoholism Other Mental health disorder Social History Housing: Apartment Alcohol intake: never Patient Tobacco Use Status: Never used Tobacco e-Cigarette/Vaping Use: Never Used Second Hand Smoke Exposure: No service: No Current occupational status: employed Current occupation: Patient works with the [employer] Current occupational exposures/hazards: No Cognitive needs: No Hearing needs: No Vision needs: No Questionnaire PHQ-9 Over the last 2 weeks, how often have you been bothered by any of the following problems? 1. Little interest or pleasure in doing things: several days 2. Feeling down, depressed, or hopeless: several days 3. Trouble falling or staying asleep, or sleeping too much: not at all 4. Feeling tired or having little energy: not at all 5. Poor appetite or overeating: several days 6. Feeling bad about yourself - or that you are a failure or have let yourself or your family down: not at all 7. Trouble concentrating on things, such as reading the newspaper or watching television: more than half the days 8. Moving or speaking so slowly that other people could have noticed. Or the opposite - being so fidgety or restless that you have been moving around a lot more than usual: not at all 9. Thoughts that you would be better off or of hurting yourself in some way: not at all Total score: 5 Depression Screening Interpretation: Positive Depression Screening Follow-up: Existing condition and In treatment Depression Screening Done: Yes 44749 - PHQ-9 Billing: Yes Source: Developed by Drs. Eddie Alcantara, Hayde Meyer, Soto Mane and colleagues, with an educational rebecca from [employer]. Thrive Questionnaire Date Thrive assessed: 07/23/25 I am a: Patient What is your living situation today?: I have a steady place to live Within the past 12 months, did the food you bought not last and you didn't have the money to get more?: Never true Within the past 12 months, did you worry whether your food would run out before you got money to buy more?: Never true Do you have trouble paying for medicines?: No Do you have trouble getting transportation to medical appointments?: No Do you have trouble paying your heating and electricity bill?: No Do you have trouble taking care of your child, family member or friend?: No Do you have trouble with day-to-day activities such as bathing, preparing meals, shopping, managing finances, etc.?: No Are you currently unemployed and looking for a job?: No Are you interested in more education?: No Please select the resources that you would like help with: None Currently or been in a relationship where the following occur: No concerns reported THRIVE Score: 0 AUDIT C Alcohol Use Questionnaire (AUDIT-C) 1. How often do you have a drink containing alcohol?: Monthly or less 2. How many drinks containing alcohol do you have on a typical day when you are drinking?: 1 or 2 3. How often do you have six or more drinks on one occasion?: Never Total Score: 1 Score Reviewed/Action Taken: Yes RAFIA-7 AMB Questionnaire RAFIA-7 Date RAFIA - 7 assessed: 07/23/25 Feeling nervous, anxious, or on edge: 2 = More than half the days Not being able to stop or control worryin = Several days Worrying too much about different things: 0 = Not at all Trouble relaxin = Several days Being so restless that it is hard to sit still: 0 = Not at all Becoming easily annoyed or irritable: 1 = Several days Feeling afraid as if something awful might happen: 2 = More than half the days Total RAFIA-7 score (0-4 normal; 5-9 mild; 10-14 moderate; 15-21 severe): 7 Source: Developed by Drs. Eddie Alcantara, Hayde Meyer, Soto Mane and colleagues, with an educational rebecca from [employer]. RAFIA-7 Assessment Billing RAFIA-7 Assessment Tool: RAFIA-7 Assessment 24245 Review of Systems Const Details: Denies chills, Denies fatigue, Denies fever(s), Denies headache(s) and Denies weakness HEENT Denies change in vision, Denies dizziness, Denies headache(s), Denies hearing loss, Denies nasal congestion, Denies sinus pain, Denies sinus pressure and Denies sore throat Card Denies chest pain, Denies lightheadedness, Denies dyspnea and Denies other (palpitations) Resp Denies cough, Denies dyspnea and Denies wheezing GI Denies abdominal pain, Denies melena, Denies hematochezia, Denies change in bowel habits, Denies dyspepsia and Denies nausea Denies hematuria and Denies dysuria Musc Denies abnormal gait, Denies myalgias, Denies arthralgias, Denies numbness and Denies tingling Skin/Breast Denies rash, Denies unusual bruising and Denies wounds Neuro Denies abnormal gait, Denies dizziness, Denies headache(s), Denies memory loss, Denies numbness, Denies Sensory deficit (Neuro), Denies tingling and Denies weakness Psych Denies anxiety, Denies depression and Denies memory loss Endo Denies cold intolerance, Denies fatigue, Denies heat intolerance, Denies polydipsia and Denies polyuria Justin/Lymph Denies easy bleeding and Denies easy bruising Aller/Immun Denies wheezing Physical exam (Primary Care) Vital Signs: Last Vital Signs Temp 98.1 F 07/23/25 14:57 Pulse 74 07/23/25 14:57 Resp 16 07/23/25 14:57 BP 125/69 07/23/25 14:57 Pulse Ox 97 07/23/25 14:57 Oxygen Delivery Method Room Air 07/23/25 14:57 BMI result Body Mass Index 47.8 Tobacco/Smoking Status: Tobacco use Status Tobacco use date assessed 07/23/25 07/23/25 14:57 Patient Tobacco Use Status Never used Tobacco 07/23/25 14:55 e-Cigarette/Vaping Use Never Used 07/23/25 14:55 PHQ-9: PHQ-9 Score PHQ-9: Total score 5 07/23/25 15:20 Depression Screening Interpretation: Positive Depression Screening Follow-up: Existing condition and In treatment Thrive Assessment: Date of Thrive Assessment Date Thrive assessed 07/23/25 07/23/25 15:05 Currently or been in a relationship where the following occur: No concerns reported Const Other: General: no acute distress, well developed, alert and awake Nutritional Appearance: well nourished Orientation/consciousness: patient oriented x3 HENMT Head: Yes normocephalic and Yes atraumatic Ears: hearing grossly normal bilaterally and TM's normal bilaterally General nose exam: Normal external nose present and Normal nares present Mouth: Normal oral and palatal mucosa present and moist mucous membranes Teeth and gingiva: dentition normal Throat: Yes oropharynx normal Eyes Pupils: Equal, round and reactive pupils present and Pupil accommodation reflex normal EOM: EOMs intact bilaterally Neck Neck: Yes normal visual inspection, Yes no lymphadenopathy and Yes trachea mid line Thyroid: Thyroid normal Carotids: no bruits Lymphatic: no lymphadenopathy noted Chest Chest palpation & inspection: normal inspection of the chest Resp Effort & Inspection: normal respiratory effort Auscultation: clear to auscultation bilaterally Cardio Rate: regular rate Rhythm: regular rhythm Heart sounds: S1 normal heart sound present, S2 normal heart sound present, no gallops, no murmurs and no rubs Bruits: no abdominal aortic bruits and no carotid bruits GI Palpation (GI): No Abdominal aortic bruit present, Soft to palpation, nontender, No hepatosplenomegaly present and No Rebound tenderness present Auscultation: normal bowel sounds General: Yes no CVA tenderness Back/Spine/Pelvis Back: no CVA tenderness Cervical Spine: cervical ROM normal and No Cervical spine tenderness Thoracic/Lumbar Spine: thoraco-lumbar ROM normal, No pain with thoraco-lumbar ROM, No thoracic spinal tenderness and No lumbar spinal tenderness Skin General: warm and dry. Normal skin color. Normal skin turgor Lesions: no lesions Rashes: no rashes Trauma: no lacerations or abrasions Wounds: no wounds Nails: normal Neuro General: patient oriented x3, gait normal and CN's II-XI intact bilaterally Cranial nerves: Yes Equal, round and reactive pupils present Cognition (Neuro): normal cognition Gait exam (Neuro): Normal gait present Motor exam (neuro): 5/5 motor strength present throughout Sensory Exam: No Sensory deficit (Neuro) Deep tendon reflexes (DTR's): Right patellar reflex intensity grade: 2+ and Left patellar reflex intensity grade: 2+ Extrem General: Yes normal to inspection, No edema and No calf tenderness Psych Appearance: grossly normal Affect: normal affect Attitude: cooperative Thought process: Normal thought process present Immunizations Boostrix Tdap 2.5 Lf unit-8 mcg-5 Lf/0.5 mL intramuscular syringe Performing Provider: Rommel Flores CNP Performing Location: [facility] Administered by: Sonali Thornton RN on 07/23/25 15:43 Dose Route Admin Location Dispensed Lot Number Expiration Date [facility] Exercise Rider 0.5 mL IM Left Deltoid 0.5 mL [id number] 09/11/27 02701-216-62 [place] [employer] Total Dispensed Waste 0.5 mL 0 % VIS Given Date VIS Provided VIS Publication Date 07/23/25 Single Vaccine 21 Eligibility Eligibility Date Funding Source Not [facility] Eligible 07/23/25 Private Coding Level of Care Code Est Pt Level 3 (63408) Est Pt Prev Care 18-39y(69961) Diagnoses Normal physical examination, routine Z00.00 Dyslipidemia E78.5 Microalbuminuria R80.9 Morbid obesity with BMI of 60.0-69.9, adult E66.01; Z68.44 Primary hypertension I10 Hypertension type: primary hypertension Additional Codes RAFIA-7 Assessment Billing - RAFIA-7 Assessment Tool: RAFIA-7 Assessment 84615 ([id number]) PHQ-9 - 80389 - PHQ-9 Billing: Yes ([id number]) Assessment & Plan Assessment & Plan (1) Normal physical examination, routine: Code(s): Z00.00 - Encounter for general adult medical examination without abnormal findings Category: Medical Plan: No significant functional limitation noted. Continue current treatment regimen. Healthy diet and exercise encouraged. Follow-up with specialists as planned. Perform lab work a few days before next visit. Return for a telehealth visit for labs in 2-4 weeks. Return sooner with symptoms or concerns. Verbalized understanding and agreed with the treatment plan. (2) Dyslipidemia: Code(s): E78.5 - Hyperlipidemia, unspecified Category: Medical Plan: Recent triglyceride level is elevated, 195, HDL level is low, 35. Declines medication treatment at this time and notes he will continue with weight management for now. Advised to limit foods high in saturated fat and avoid foods high in trans fat. Routine exercise encouraged. Fast for 10-12 hours, may drink water, and perform lipid panel blood work 2-3 days before next visit. Follow-up for telehealth visit in 2 months. Return sooner with symptoms or concerns. Verbalized understanding and agreed with the plan. (3) Microalbuminuria: Code(s): R80.9 - Proteinuria, unspecified Category: Medical Plan: Recent urine microalbumin/creatinine ratio is slightly elevated, 39.1. Likely attributed to dehydration. Adequate hydration encouraged. Will recheck urine microalbumin/creatinine ratio in 2 months. Verbalized understanding and agreed with the plan. (4) Morbid obesity with BMI of 60.0-69.9, adult: Code(s): E66.01 - Morbid (severe) obesity due to excess calories; Z68.44 - Body mass index [BMI] 60.0-69.9, adult Category: Medical Plan: He has been followed by [facility] weight management for over a year; has been making healthy dietary choices and exercising regularly and has lost over 100 lb. Continue current treatment regimen. Verbalized understanding and agreed with the plan. (5) Hypertension: Code(s): I10 - Essential (primary) hypertension Category: Medical Qualifiers: Hypertension type: primary hypertension Qualified Code(s): I10 - Essential (primary) hypertension Plan: Blood pressure is 125/69, within goal of less than 140/90. Continue current treatment regimen. Low-sodium diet encouraged. Will continue to monitor. Verbalized understanding and agreed with the plan. Orders: Orders Lipid Panel 2 Months E78.5 - Hyperlipidemia, unspecified TDaP Immunization Today Z23 - Encounter for immunization Microalbumin, Random (w Creat) 2 Months R80.9 - Proteinuria, unspecified
[2025-07-23 14:57] VITALS: BP 125/69; PULSE 74; RESP 16; TEMP 36.7; O2SAT 97; BMI 47.8
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
--- OUTSIDE RECORDS SUMMARY | 2025-07-23 18:34 | XMS_ITS | Clinical Summary ---
Author Organization [facility] ity Address [address] [place] [address] Care Team Providers Care Airline Radio Operator Name Role Phone Unavailable Primary Care [...] of 3 - 19+ 3-dose series) 2006 Depression Screening 11/07/2024 COVID-19 Vaccine (1 - 2023-2 5 season) 2025 Influenza Vaccine (#1) 2025 HIB Vaccines Aged [...]
== END 2025-07-23 15:43 | disposition home or self-care (01) ==
LOC: HO.HMCFM 14:51
PROVIDERS: PCP Nurse Practitioner Family; Visit Provider Nurse Practitioner Family
DX: Z00.00 Encounter for general adult medical examination without abnormal findings (principal); E78.5 Hyperlipidemia, unspecified; R80.9 Proteinuria, unspecified; E66.01 Morbid (severe) obesity due to excess calories; Z68.44 Body mass index [BMI] 60.0-69.9, adult; I10 Essential (primary) hypertension; Z23 Encounter for immunization

== ENCOUNTER → 2025-07-23 14:50 | Outpatient (BNVA) | payer BC, SELFPAY | PROVIDERS: PCP Nurse Practitioner Family; Visit Provider Nurse Practitioner Family | DX: Z00.00 Encounter for general adult medical examination without abnormal findings (principal); E78.5 Hyperlipidemia, unspecified; R80.9 Proteinuria, unspecified; E66.01 Morbid (severe) obesity due to excess calories; I10 Essential (primary) hypertension; Z23 Encounter for immunization; Z68.44 Body mass index [BMI] 60.0-69.9, adult | CPT/HCPCS: 90471; 90715; 96127 ==